=== PATIENT | female | born 1990 | race Caucasian/White ===

== ENCOUNTER 2016-11-02 23:14 | Emergency (ER) | payer OTHER ==
[2016-11-02 23:24] VITALS: BP 138/89
[2016-11-02] MEDS ORDERED: LIDOCAINE HCL 20 ML UDC MM ONE (23:56)
[2016-11-02] MEDS ORDERED: AMOXICILLIN TRIHYDRATE 250 MG CAPSULE PO ONE (23:56)
[2016-11-02] MEDS ORDERED: AMOXICILLIN TRIHYDRATE 250 MG CAPSULE ONE (23:58)
--- NOTE | 2016-11-03 | ERNOTE ---
ENT HPI Presenting Symptoms: dental pain Time Seen by Provider: 11/02/16 23:50 Source: patient Exam Limitations: no limitations - Immun/Allergies/Home Medications Immunizations: IMMUNIZATION HX Immunizations Up to Date No History of Influenza Vaccine No Hx Pneumococcal Vaccination No Allergies/Adverse Reactions: Allergies Allergy/AdvReac Type Severity Reaction Status Date / Time codeine Allergy Verified 11/02/16 23:25 haloperidol [From Haldol] Allergy Verified 11/02/16 23:25 haloperidol lactate Allergy Verified 11/02/16 23:25 [From Haldol] hydrocodone bitartrate Allergy Verified 11/02/16 23:25 [From Vicodin] metoclopramide HCl Allergy Verified 11/02/16 23:25 [From Reglan] morphine Allergy Verified 11/02/16 23:25 Home Medications: HOME MEDICATIONS Albuterol Sulfate [Proair Respiclick] 2 puff IH Q4H PRN 11/02/16 [Last Taken Unknown] Amoxicillin Trihydrate [Amoxil] 500 mg PO TID #30 cap 11/02/16 [Last Taken Unknown] Citalopram Hydrobromide [Celexa] 10 mg PO DAILY 11/02/16 [Last Taken Unknown] Lidocaine HCl [Lidocaine HCl Viscous 2%] 1 appl MM Q1H PRN #1 btl 11/02/16 [ Last Taken Unknown] - History of Present Illness Narrative: PAtient states that a molar broke off this afternoon and she has had pain ever since. She tried tylenol, states that she was told by a GI doctor that she shouldn't take NSAIDs, denies any recent medications or medical problems, later states that she has had recurrent bouts with pancreatitis, last one about a year ago. Date (Duration): 11/02/16 Time (Timing): 16:00 Review of Systems - Review of Systems Constitutional: Absent: recent illness, fever, chills ENT: Present: no symptoms reported. Absent: nose pain, nose congestion, nasal drainage Respiratory: Absent: shortness of breath Cardiology: Absent: chest pain Gastrointestinal/Abdominal: Absent: nausea, vomiting, abdominal pain Musculoskeletal: Absent: muscle pain Neurological: Absent: headache - Patient's Past Medical History Patient History - Medical: No pertinent hx Patient History - Cardiac/Respiratory: Asthma Patient History - Cancer: No Hx of Cancer Patient History - Surgical Procedures: Cholecystectomy, Tubal Ligation Patient History - Other: None LMP (females 10-50): 2 weeks LMP (Calendar): 10/22/16 - Social History Living Situations: home Psych History: Hx of Anxiety, Current tx/ever been on anti-depressants or anti- anxiety meds Smoking Status: Current every day smoker Alcohol Use: none Drug Use: none - Immunizations Immunizations Up to Date: No Hx Pneumococcal Vaccination: No History of Influenza Vaccine: No Physical Exam - Physical Exam General Appearance: Present: wd/wn, alert, mild distress - crying Ears, Nose, Throat: Present: normal ENT inspection, other - tender right upper molar, no gum swelling Neck: Absent: lymphadenopathy (R), lymphadenopathy (L) Respiratory: Present: no respiratory distress, normal breath sounds, no accessory muscle use, lungs clear Cardiovascular/Chest: Present: regular rate, rhythm, no murmur Neurological Exam: Present: alert, oriented, normal mood/affect Skin Exam: Present: normal color, warm/dry ED Progress - Vital Signs Patient's Vital Signs:: I have reviewed the patient's vital signs. Vital Signs: Vital Signs 11/02/16 23:18 Temperature 36.8 C Pulse Rate 103 H Respiratory 18 Rate Blood Pressure 138/89 O2 Sat by Pulse 98 Oximetry - Progress/Reassessment Chief Complaint: Dental Problem Departure Clinical Impression: Pain, dental - Departure Disposition: Home self-care Condition: Good Instructions: Dental Abscess, [id number] Additional Instructions: call the dentist tomorrow for follow up Prescriptions: Amoxicillin Trihydrate [Amoxil] 500 mg PO TID #30 cap Lidocaine HCl [Lidocaine HCl Viscous 2%] 1 appl MM Q1H PRN #1 btl PRN Reason: Pain
--- OUTSIDE RECORDS SUMMARY | 2016-11-03 00:04 | XMS REPORT | Continuity of Care Document ---
:1990 Author Organization [facility] [place] [address] Care Team Providers Name Role Phone Provider, None Per Patient Primary Care Provider Unavailable Source Comments This disclosure is being made pursuant to the Workana program and maynot contain all information available regarding this patient.[facility] Active Allergies and Adverse Reactions Allergen Noted Date Severity Reactions Comments Codeine 05/11/2015 Medium Nausea And Vomiting Morphine 05/11/2015 High Hives [place] 05/11/2015 Medium Nausea And Vomiting Reglan 05/11/2015 Medium Tardive Dyskinesia Current Medications Be aware that medications may not be up to date as of this document. Alwaysverify current medications with the patient. Prescription Sig. Disp. Refills Start Date End Date Status citalopram (CELEXA) 10 Take 10 mg by Active MG tablet mouth nightly. albuterol (PROVENTIL Inhale 2 puffs Active HFA;VENTOLIN HFA) 108 into the lungs (90 BASE) MCG/ACT daily. inhaler omeprazole (PRILOSEC) Take 20 mg by Active 10 MG capsule mouth every morning before breakfast. omeprazole (PRILOSEC) Take 1 capsule by 60 capsule 1 05/15/2015 Active 20 MG capsule mouth 2 (two) times daily. promethazine Take 1 tablet by 30 tablet 0 05/15/2015 Active (PHENERGAN) 25 MG mouth every 6 tablet (six) hours as needed for Nausea. Active Problems Problem Noted Date Idiopathic acute pancreatitis 05/12/2015 Abdominal pain, acute, epigastric 05/12/2015 Social History Tobacco Use Types Packs/Day Years Used Date Former Smoker Quit: 05/01/2015 Smokeless Tobacco: Never Used Alcohol Use Drinks/Week oz/Week Comments No Last Filed Vital Signs Vital Sign Reading Time Taken Blood Pressure 117/70 05/15/2015 9:10 AM CDT Pulse 63 05/15/2015 9:10 AM CDT Temperature 35.8 C (96.4 F) 05/15/2015 9:10 AM CDT Respiratory Rate 20 05/15/2015 9:10 AM CDT Height 1.702 m (5' 7") 05/11/2015 7:46 PM CDT Weight 104.9 kg (231 lb 4.2 oz) 05/15/2015 4:57 AM CDT Body Mass Index 36.21 05/15/2015 4:57 AM CDT Oxygen Saturation 96% 05/15/2015 9:10 AM CDT Plan of Care Health Maintenance Due Date Last Done Comments HPV Vaccine (9-26YO) (1 of 3 - Female/Unknown 3 Dose 2001 Series) Tetanus/Pertussis (1 - Tdap) 2009 Pap Smear 2011 Retired-INFLUENZA VACCINE 04/24/2016 Results from Last 3 Months Not on file
--- OUTSIDE RECORDS SUMMARY | 2016-11-03 00:04 | XMS REPORT | Continuity of Care Document ---
:1990 Author Organization [facility] ([facility]) [place] [address] Phone [phone] Care Team Providers Name Role Phone Alta Miller Primary Care Provider [phone] Source Comments This disclosure is being made pursuant to the Care Everywhere program, applicable federal and state laws, and may not contain all informaitonavailable regarding this patient.[facility] ([facility]) Active Allergies and Adverse Reactions Allergen Noted Date Severity Reactions Comments Codeine 09/21/2016 Angioedema Hydrocodone-Acetaminophen 09/21/2016 Nausea & Vomiting Morphine 09/21/2016 Urticaria (Hives) Current Medications Prescription Sig. Disp. Refills Start Date End Date Status dicyclomine 20 mg Take 1 tablet 60 tablet 0 09/21/2016 10/21/2016 tablet (20 mg total) by mouth 2 times daily as needed. Active Problems Not on file Most Recent Encounters Date Type Specialty Providers Description 10/15/2016 Telephone Med GI/Hepatology Gilma Sellers RN Chief Comp: Appointment Request 09/22/2016 Telephone Med GI/Hepatology Cheli Tyson RN Chief Comp: Other 09/21/2016 Hospital Encounter Emergency Medicine Vasyl Salinas Dx: Abdominal painJr. MD epigastric (Primary Dx) Social History Tobacco Use Types Packs/Day Years Used Date Current Every Day Smoker Alcohol Use Drinks/Week oz/Week Comments No Last Filed Vital Signs Vital Sign Reading Time Taken Blood Pressure 130/79 09/21/2016 8:21 AM MEDICARE COMPLIANCE AUDITOR Pulse 90 09/21/2016 8:21 AM MEDICARE COMPLIANCE AUDITOR Temperature 36.7 C (98.1 F) 09/21/2016 8:21 AM MEDICARE COMPLIANCE AUDITOR Respiratory Rate 16 09/21/2016 8:21 AM MEDICARE COMPLIANCE AUDITOR Height - - Weight - - Body Mass Index - - Oxygen Saturation 100% 09/21/2016 8:21 AM MEDICARE COMPLIANCE AUDITOR Plan of Care Date Type Specialty Providers Description 03/19/2017 Wait List Med GI/Hepatology 03/19/2017 Appointment Med GI/Hepatology Amber Shoemaker MD Chief Comp: Patient Liang [place] [address] Visit [phone] (Fax) Health Maintenance Due Date Last Done Comments Hepatitis B Vaccine (1 of 3 - Primary Series) 1990 HPV Vaccine (1 of 3 - Female/Unknown 3 Dose Series) 2001 Tdap Vaccine 2001 Cervical Cancer Screening 01/24/2008 Lipid Disorder Screening 01/24/2008 MMR Vaccine 01/24/2008 Td Vaccine 01/24/2008 Varicella Vaccine (1 of 2 - Adult - No Evidence of 01/24/2008 Immunity) Pneumococcal Vaccine (1 of 1 - PPSV23) 2009 Influenza Vaccine: Seasonal (#1) 03/24/2016 Results from Last 3 Months US RIGHT UPPER QUADRANT (RUQ) (09/21/2016 9:43 AM) Impressions Impression: 1. Gallbladder sludge without evidence of cholecystitis. 2. No cholelithiasis or choledocholithiasis. Bile ducts are not dilated. 3. Visualized portion of the pancreas is unremarkable. This final report is in agreement with the critical and emergent preliminary findings reported by the presidential support specialist waiter/waitress second class. --- Final --- Narrative [facility] Department of Radiology Ultrasound [place] [address] [place] [address] ULTRASOUND REPORT NAME:LEO VELEZ Date of Service: 09/21/2016 MRN NO.: [id number] Date: 09/21/2016 Patient's : 1990Resident/Tech: [id number] Sarah Nas Patient's Age: 26 yearsReferring MD:RENE MILLS Indication: Epigastric pain, post-prandial. please evaluate for biliary disease. Technique: Right upper quadrant grayscale ultrasound. Comparison: None. Findings: Liver:No liver lesions. +---------+ + +-------+ + :Size (cm):Echogenicity:Echotexture:Shape:Vascularity: +---------+ + +-------+ + :16.6 :Normal. :Normal.:Normal.:Normal.: +---------+ + +-------+ + Gallbladder: + + + :Gallbladder contents :Mobile sludge: + + + :Gallbladder wall :Normal. 1.2 mm.: + + + :Pericholecystic fluid:Absent.: + + + :Springer's sign:Negative : + + + Biliary Tree: + + + + :Intrahepatic biliary ducts:Right liver:Left liver: + + + + ::Normal :Normal : + + + + + + + + -+ :Extrahepatic duct :Diameter (mm):Biliary dilation:Contents/Characteristics: :(common duct) : :: : + + + + -+ :Proximal:3.1:Normal :None/normal : + + + + -+ :Mid :2.0:Normal:None/normal : + + + + -+ :Distal:2.2:Normal :None/normal : + + + + -+ Spleen: The spleen is normal in size and appearance. Spleen measures 11.5 x 3.4 x 11.3 cm. Pancreas: The pancreatic tail is not well visualized. Procedure Note Abiodun, Incoming Imaging Results - Loreta Sep 21, 2016 12:16 PM MEDICARE COMPLIANCE AUDITOR [facility] Department of Radiology Ultrasound Division [address] [place] [address] ULTRASOUND REPORT NAME: LEO VELEZ Date of Service: 09/21/2016 MRN NO.: [id number] Review Date: 09/21/2016 Patient's : 1990 Resident/Tech: [id number] Sarah Lovell Patient's Age: 26 years Referring MD: RENE MILLS Indication: Epigastric pain, post-prandial. please evaluate for biliary disease. Technique: Right upper quadrant grayscale ultrasound. Comparison: None. Findings: Liver:No liver lesions. +---------+ + +-------+ + :Size (cm):Echogenicity:Echotexture:Shape :Vascularity: +---------+ + +-------+ + :16.6 :Normal. :Normal. :Normal.:Normal. : +---------+ + +-------+ + Gallbladder: + + + :Gallbladder contents :Mobile sludge : + + + :Gallbladder wall :Normal. 1.2 mm.: + + + :Pericholecystic fluid:Absent. : + + + :Springer's sign :Negative : + + + Biliary Tree: + + + + :Intrahepatic biliary ducts:Right liver:Left liver: + + + + : :Normal :Normal : + + + + + + + + -+ :Extrahepatic duct :Diameter (mm):Biliary dilation:Contents/Characteristics: :(common duct) : : : : + + + + -+ :Proximal :3.1 :Normal :None/normal : + + + + -+ :Mid :2.0 :Normal :None/normal : + + + + -+ :Distal :2.2 :Normal :None/normal : + + + + -+ Spleen: The spleen is normal in size and appearance. Spleen measures 11.5 x 3.4 x11.3 cm. Pancreas: The pancreatic tail is not well visualized. IMPRESSION Impression: 1. Gallbladder sludge without evidence of cholecystitis. 2. No cholelithiasis or choledocholithiasis. Bile ducts are not dilated. 3. Visualized portion of the pancreas is unremarkable. This final report is in agreement with the critical and emergentpreliminary findings reported by the presidential support specialist waiter/waitress second class. --- Final --- MICROSCOPIC URINALYSIS (09/21/2016 9:03 AM) Component Value Range White Blood Cells, Urine <1 0-5 /HPF Red Blood Cells, Urine <1 0-2 /HPF Squamous Epithelial Cells, Urine 39(H) <=10 /LPF Mucous-Urine Rare None, Rare Specimen Urine URINALYSIS WITH REFLEX CULTURE (09/21/2016 9:03 AM) Component Value Range Color, Urine Yellow Straw, Pale Yellow, Yellow, Clear, None Clarity, Urine Clear Clear pH, Urine 5.0 <9.0 Spec [place], Urine 1.015 1.000-1.030 Glucose, Urine Negative Negative Blood, Urine Negative Negative Ketones, Urine Negative Negative Protein, Urine Negative Negative Urobilinogen, Urine Normal Normal Bilirubin, Urine Negative Negative Leukocyte Esterase, Urine Trace(A) Negative Nitrite, Urine Negative Negative Specimen Urine URINALYSIS WITH REFLEXED CULTURE AND MICROSCOPIC EXAM (09/21/2016 9:03 AM) Specimen Culture - Urine, Midstream clean catch Narrative The following orders were created for panel order URINALYSIS WITH REFLEXED CULTURE AND MICROSCOPIC EXAM. Procedure Abnormality Status --------- ------ URINALYSIS WITH REFLEX C...[[id number]]AbnormalFinal result MICROSCOPIC URINALYSIS[[id number]] Abnormal Final result URINE CULTURE, REFLEXED[[id number]]Abnormal Final result Please view results for these tests on the individual orders. URINE CULTURE, REFLEXED (09/21/2016 9:03 AM) Component Value Range Quantitative Culture <10,000 CFU/mL Streptococcus agalactiae(A) Quantitative Culture Multiple Organisms present suggesting improperly collected specimen(A) Specimen Culture - Urine, Midstream clean catch Narrative Identification performed by MALDI-TOF mass spectrometry (MS).The performance characteristics of MALDI-TOF MS were determined by the [facility].It has not been cleared orApproved by the FDA. The FDA has determined that such clearance or approval is not necessary.This test is for clinical purposes. It should not be regarded as investigational or for research.The laboratory is certified under the Clinical Laboratory Improvement Amendments of 1988 (CLIA) as qualified to perform high complexity clinical laboratory testing. DIFFERENTIAL (09/21/2016 9:01 AM) Component Value Range % Neutrophils-Auto Diff 66.4 % Neutrophils-Auto Diff 4320 2899-3218 /MM3 % Lymphocytes-Auto Diff 23.1 % Lymphocytes-Auto Diff 3490 163-9514 /MM3 % Monocytes-Auto Diff 7.5 % Monocytes-Auto Diff 490 130-860 /MM3 % Eosinophils-Auto Diff 2.2 % Eosinophils-Auto Diff 140 40-390 /MM3 % Basophils 0.6 % Basophils-Auto Diff 40 10-136 /MM3 % Immature Granulocytes-Auto Diff 0.2 % Immature Granulocytes-Auto Diff 10 /MM3 Specimen Whole Blood CBC (COMPLETE BLOOD COUNT) (09/21/2016 9:01 AM) Component Value Range WBC Count 6.5 3.7-10.5 K/MM3 RBC Count 4.69 4.00-5.20 M/MM3 Hemoglobin 14.1 11.9-15.5 g/dL Hematocrit 42 35-47 % MCV (Mean Corpuscular Volume) 89 82-99 FL MCH (Mean Corpuscular Hemoglobin) 30 25-35 PG MCHC (Mean Corpuscular Hemoglobin Concentration) 34 32-36 % Platelet Count 318 150-400 K/MM3 MPV (Mean Platelet Volume) 10.5 9.4-12.3 FL RBC Dist Width-STD 39.8 36.4-46.3 FL RBC Distrib Width 12.4 9.0-14.5 % Nucleated RBC 0 /100 WBC Specimen Whole Blood HCG - , SERUM, QUANTITATIVE (09/21/2016 9:01 AM) Component Value Range Screen, Quantitative, Blood <2Comment: mIU/mL This assay recognizes the intact HCG "holo-hormone" produced in but may not recognize other forms of HCG (e.g., "nicked HCG") produced in other conditions such as tumors of the germs cells, ovaries, bladder, pancreas, stomach, lungs, and liver. QUANTITATIVE HCG Weeks of gestation Expected range mIU/mL 3 weeks5 - 72 4 weeks 10 - 708 5 - 8, 245 6 zwytq143 - 32, 177 7 weeks 4,059 - 153, 767 8 weeks31,366 - 149, 094 9 weeks59,109 - 135, 901 10 weeks 44,186 - 170, 409 12 weeks 27,107 - 201, 165 14 weeks 24,302 - 93,646 15 weeks 12,540 - 69,747 16 weeks 8,904 - 55, 332 17 weeks 8,240 - 51, 793 18 weeks 9,649 - 55, 271 Non- females:< 3 mIU/mL Males: < 2 mIU/mL Healthy non- alexandre-menopausal and post-menopausal females may have HCG values up to 8 mIU/mL.Heterophile antibodies present in the serum of some patients may cause a false positive result in this assay. Specimen Blood PT/INR (PROTHROMBIN TIME/INR) VENOUS (09/21/2016 9:01 AM) Component Value Range PT (Prothrombin Time) 11 9-12 secs INR 1.0 <4.0 Specimen Blood LIPASE (09/21/2016 9:01 AM) Component Value Range Lipase 36 13-60 U/L Specimen Blood COMPREHENSIVE METABOLIC PANEL (CMP) (09/21/2016 9:01 AM) Component Value Range Sodium 137 135-145 mEq/L Potassium 3.8 3.5-5.0 mEq/L Chloride 100 95-107 mEq/L CO2 25 22-29 mEq/L Anion Gap 12 8-18 mEq/L BUN 12 10-20 mg/dL Creatinine 0.7Comment: 0.5-1.0 mg/dL Creatinine switched to enzymatic method on 12/31/2010.GFR equation switched to IDMS-traceable MDRD equation on 12/31/2010. Calculated GFR values are not valid in clinical settings where serum creatinine is changing. Glucose 93Comment: 65-99 mg/dL The Expert Committee on the Diagnosis and Classification of Diabetes has defined impaired fasting glucose as greater than or equal to 100 mg/dL but less than 126 mg/dL.(Diabetes Care 28 (Suppl 1)S41,2005) Calcium 9.1 8.5-10.5 mg/dL Total Protein 7.4 6.0-8.0 g/dL Albumin 4.4 3.4-4.8 g/dL AST 20Comment: 0-32 U/L Adult reference ranges updated on 07/19/13 at 830am ALP 80 35-104 U/L Bilirubin Total 0.9 <=1.2 mg/dL ALT 11Comment: 0-33 U/L The upper limit of normal for alanine aminotransferase (ALT) reference ranges for adults is controversial with some authorities recommending limit as low as 30 U/L for males and 19 U/L for females. Th ere is increased incidence of subclinical liver disease (e.g., early steatohepatitis) in patients with ALT values in the range of 31-41 U/L for males and 20-33 U/L for females. ALT values should alway s be interpreted in conjunction with clinical history, physical examination findings, and, if applicable, data from other diagnostic tests. Calculated GFR >90 >60 mL/min/1.73 m2 Specimen Blood CBC WITH DIFFERENTIAL (09/21/2016 9:01 AM) Specimen Whole Blood Narrative The following orders were created for panel order CBC WITH DIFFERENTIAL. Procedure Abnormality Status --------- ------ CBC (COMPLETE BLOOD COUNT)[[id number]] Final result DIFFERENTIAL[[id number]] Final result Please view results for these tests on the individual orders.
--- OUTSIDE RECORDS SUMMARY | 2016-11-03 00:04 | XMS REPORT | Summary of Care ---
:[address] [facility] Address [address] [place] [id number]- Care Team Providers Name Role Phone TamyjulietaAlta Primary Care Physician Encounter Date(s): 09/23/16 - 09/23/[address] [address]- [facility] Discharge Disposition: 01 Discharged to Home or Self Care Attending Physician: Kevan Vincent DO Admitting Physician: Kevan Vincent DO Vital Signs No data available for this section Problem List Condition Effective Dates Status Health Status Informant Acute gastritis(Confirmed) Active Adolescent (Confirmed) Active Asthma(Confirmed) Active Group B streptococcus(Confirmed) Active Maternal tobacco use(Confirmed) Active Pancreatitis(Confirmed) Active (Confirmed) < 2010 Resolved (Confirmed) 2011 Resolved (Confirmed) 05/25/12 - 02/22/13 Resolved (Confirmed) 07/07/14 - 03/29/15 Resolved (Confirmed) 07/21/15 - 04/26/16 Resolved Allergies, Adverse Reactions, Alerts Substance Reaction Severity Status codeine Vomit Mild Active Haldol Rigors Moderate Active morphine Rash Moderate Active Reglan muscle spasms Moderate Active Vicodin Rash Moderate Active Medications albuterol CFC free 90 mcg/inh inhalation aerosol puff(s), Inhale, QID, 0 Refill(s), Start Date: 08/31/15 13:37:00 COAGULATING BATH OPERATOR Start Date: 08/31/15 Stop Date: 10/26/15 Status: CompletedCarafate 1 g oral tablet 1 tab(s), Oral, QID, # 120 tab(s), 0 Refill(s), Start Date: 07/25/16 13:18:00 COAGULATING BATH OPERATOR, Pharmacy: [id number] Start Date: 07/25/16 Status: OrderedCarafate 1 g oral tablet 1 tab(s), Oral, QIDACHS, # 56 tab(s), 0 Refill(s), Start Date: 06/06/16 12:51: 00 CDT Start Date: 06/06/16 Stop Date: 06/12/16 Status: DiscontinuedCarafate 1 g oral tablet 1 tab(s), Oral, QIDACHS, X 14 days, # 56 tab(s), 0 Refill(s), Start Date: 4:34:00 COAGULATING BATH OPERATOR Start Date: 06/26/15 Stop Date: 07/10/15 Status: CompletedCarafate 1 g oral tablet 1 tab(s), Oral, QID, # 28 tab(s), 0 Refill(s), Start Date: 10/26/15 13:03:00 COAGULATING BATH OPERATOR Start Date: 10/26/15 Stop Date: 11/14/15 Status: DiscontinuedCeleXA 10 mg oral tablet 2 tab(s), Oral, Daily, 0 Refill(s), Start Date: 08/31/15 13:36:00 COAGULATING BATH OPERATOR Start Date: 08/31/15 Stop Date: 07/14/16 Status: DiscontinuedCeleXA 20 mg oral tablet 1 tab(s), Oral, Daily, # 30 tab(s), 2 Refill(s), Start Date: 07/14/16 12:54:00 COAGULATING BATH OPERATOR, Pharmacy: [id number] Start Date: 07/14/16 Status: Orderedcetirizine 5 mg oral tablet 1 tab(s), Oral, Daily, # 10 tab(s), 0 Refill(s), Start Date: 09/01/16 15:51:00 COAGULATING BATH OPERATOR, Pharmacy: [facility] Start Date: 09/01/16 Stop Date: 09/12/16 Status: CompletedClassic oral tablet 1 tab(s), Oral, Daily, # 30 tab(s), 11 Refill(s), Start Date: 08/31/15 14:03:00 COAGULATING BATH OPERATOR, Pharmacy: [id number] Start Date: 08/31/15 Stop Date: 08/01/16 Status: Completeddicyclomine 20 mg oral tablet 1 tab(s), Oral, QID, PRN abdominal pain, # 40 tab(s), 0 Refill(s), Start Date: 08/06/16 0:16:00 COAGULATING BATH OPERATOR Start Date: 08/06/16 Stop Date: 08/19/16 Status: CompletedDilaudid 2 mg oral tablet 1 tab(s), Oral, q8hr interval, PRN for pain, # 30 tab(s), 0 Refill(s), Start Date: 08/28/16 18:51:00 COAGULATING BATH OPERATOR Start Date: 08/28/16 Stop Date: 09/09/16 Status: Completedferrous sulfate 325 mg (65 mg elemental iron) oral tablet 1 tab(s), Oral, Daily, # 90 tab(s), 2 Refill(s), Start Date: 01/16/16 13:33:00 CDT, Pharmacy: [facility] Start Date: 01/16/16 Stop Date: 04/28/16 Status: Discontinuedferrous sulfate 325 mg (65 mg elemental iron) oral tablet 1 tab(s), Oral, Daily, # 90 tab(s), 0 Refill(s), Start Date: 01/16/16 13:32:00 CDT Start Date: 01/16/16 Stop Date: 01/16/16 Status: DiscontinuedFlagyl 500 mg oral tablet 1 tab(s), Oral, q12hr, # 14 tab(s), 0 Refill(s), Start Date: 02/23/16 23:20:00 CDT, Pharmacy: [facility] Start Date: 02/23/16 Stop Date: 03/12/16 Status: Discontinuedibuprofen 600 mg oral tablet 1 tab(s), Oral, q6hr, PRN pain mild 1-3, # 30 tab(s), 0 Refill(s), Start Date: 04/28/16 9:49:00 CDT, Pharmacy: [id number] Start Date: 04/28/16 Stop Date: 08/01/16 Status: CompletedMacrobid 100 mg oral capsule 1 cap(s), Oral, BID, # 14 cap(s), 0 Refill(s), Start Date: 02/04/16 20:15:00 CDT , Pharmacy: [facility] Start Date: 02/04/16 Stop Date: 02/06/16 Status: DiscontinuedMacrobid 100 mg oral capsule 1 cap(s), Oral, BID, # 14 cap(s), 0 Refill(s), Start Date: 11/26/15 15:08:00 CDT , Pharmacy: [facility] Start Date: 11/26/15 Stop Date: 12/20/15 Status: Completedmagnesium citrate 1.745 g/30 mL oral liquid 150 mL, Oral, ONETIME, # 300 mL, 0 Refill(s), Start Date: 08/01/16 18:28:00 COAGULATING BATH OPERATOR Start Date: 08/01/16 Stop Date: 08/01/16 Status: CompletedMiraLax oral powder for reconstitution 17 gm=, Oral, Daily, dissolve in water before taking, X 31 days, # 527 gm, 0 Refill(s), Start Date: 08/01/16 18:28:00 COAGULATING BATH OPERATOR Special Instructions: dissolve in water before taking Start Date: 08/01/16 Stop Date: 08/04/16 Status: Completedomeprazole 40 mg oral delayed release capsule 1 cap(s), Oral, Daily, # 30 cap(s), 0 Refill(s), Start Date: 07/25/16 13:18:00 COAGULATING BATH OPERATOR, Pharmacy: [facility] Start Date: 07/25/16 Stop Date: 09/12/16 Status: Completedomeprazole 40 mg oral delayed release capsule 1 cap(s), Oral, Daily, # 30 cap(s), 0 Refill(s), Start Date: 09/10/16 10:56:00 COAGULATING BATH OPERATOR, Pharmacy: [facility] Start Date: 09/10/16 Status: Orderedondansetron 4 mg oral tablet, disintegrating 1 tab(s), Oral, TID, PRN nausea/vomiting, Start Date: 06/06/16 10:52:00 CDT Start Date: 06/06/16 Stop Date: 08/01/16 Status: CompletedoxyCODONE-acetaminophen 5 mg-325 mg oral tablet 1 tab(s), Oral, TID, PRN pain severe 8-10, X 7 days, # 21 tab(s), 0 Refill(s), Start Date: 06/30/16 9:59:27 COAGULATING BATH OPERATOR, Pharmacy: [facility] Start Date: 06/30/16 Stop Date: 07/07/16 Status: CompletedoxyCODONE-acetaminophen 5 mg-325 mg oral tablet 1 tab(s), Oral, TID, PRN pain severe 8-10, X 7 days, # 21 tab(s), 0 Refill(s), Start Date: 06/23/16 15:23:20 CDT, Pharmacy: [facility] Start Date: 06/23/16 Stop Date: 06/30/16 Status: CompletedoxyCODONE-acetaminophen 5 mg-325 mg oral tablet 2 tab(s), Oral, TID, PRN for pain, Only for severe pain 8-10 not to exceed 4000 mg acetaminophen per day, X 14 days, # 84 tab(s), 0 Refill(s), Start Date: 07/18/16 11:01:00 COAGULATING BATH OPERATOR, other reason (Rx) Special Instructions: Only for severe pain 8-10 not to exceed 4000 mg acetaminophen per day Start Date: 07/18/16 Stop Date: 07/18/16 Status: CompletedoxyCODONE-acetaminophen 5 mg-325 mg oral tablet 1 tab(s), Oral, q6hr interval, PRN pain severe 8-10, 0 Refill(s), Start Date: 10:53:00 CDT Start Date: 06/06/16 Stop Date: 06/12/16 Status: DiscontinuedoxyCODONE-acetaminophen 5 mg-325 mg oral tablet 1 tab(s), Oral, q4hr, PRN for pain, # 10 tab(s), 0 Refill(s), Start Date: 12:59:00 CDT, Pharmacy: [facility] Start Date: 04/11/16 Stop Date: 04/26/16 Status: CompletedoxyCODONE-acetaminophen 5 mg-325 mg oral tablet 1 tab(s), Oral, TID, PRN for pain, Only for severe pain 8-10, X 14 days, # 42 tab(s), 0 Refill(s), Start Date: 07/10/16 9:02:23 COAGULATING BATH OPERATOR, Pharmacy: [facility] Special Instructions: Only for severe pain 8-10 Start Date: 07/10/16 Stop Date: 07/18/16 Status: CompletedoxyCODONE-acetaminophen 5 mg-325 mg oral tablet 1 tab(s), Oral, q6hr interval, PRN pain severe 8-10, X 10 days, # 40 tab(s), 0 Refill(s), Start Date: 06/12/16 14:19:00 CDT, Pharmacy: [facility] Start Date: 06/12/16 Stop Date: 06/22/16 Status: CompletedoxyCODONE-acetaminophen 5 mg-325 mg oral tablet 1 tab(s), Oral, Daily, PRN for pain, Only for severe pain 8-10, X 7 days, # 7 tab(s), 0 Refill(s), Start Date: 07/07/16 8:39:00 COAGULATING BATH OPERATOR, Pharmacy: [facility] Special Instructions: Only for severe pain 8-10 Start Date: 07/07/16 Stop Date: 07/10/16 Status: CompletedoxyCODONE-acetaminophen 5 mg-325 mg oral tablet 2 tab(s), Oral, TID, PRN for pain, Only for severe pain 8-10 not to exceed 4000 mg acetaminophen per day, X 7 days, # 42 tab(s), 0 Refill(s), Start Date: 07/18/16 11:44:08 COAGULATING BATH OPERATOR, Pharmacy: [facility] Special Instructions: Only for severe pain 8-10 not to exceed 4000 mg acetaminophen per day Start Date: 07/18/16 Stop Date: 07/25/16 Status: CompletedoxyCODONE-acetaminophen 5mg-325mg oral tablet 2 tab(s), Oral, TID, PRN for pain, Only for severe pain 8-10 not to exceed 4000 mg acetaminophen per day, X 7 days, # 42 tab(s), 0 Refill(s), Start Date: 07/25/16 12:04:23 COAGULATING BATH OPERATOR, Pharmacy: [facility] Special Instructions: Only for severe pain 8-10 not to exceed 4000 mg acetaminophen per day Start Date: 07/25/16 Stop Date: 08/01/16 Status: Completedpantoprazole 40 mg oral delayed release tablet 1 tab(s), Oral, Daily, X 14 days, # 14 tab(s), 0 Refill(s), Start Date: 4:33:00 COAGULATING BATH OPERATOR Start Date: 06/26/15 Stop Date: 07/10/15 Status: Completedpantoprazole 40 mg oral delayed release tablet 1 tab(s), Oral, Daily, # 30 tab(s), 0 Refill(s), Start Date: 06/06/16 12:51:00 CDT Start Date: 06/06/16 Stop Date: 06/12/16 Status: DiscontinuedPercocet 5/325 oral tablet 1 tab(s), Oral, TID, PRN for pain, X 7 days, # 21 tab(s), 0 Refill(s), Start Date: 09/16/16 8:47:54 COAGULATING BATH OPERATOR, Pharmacy: [place] [id number] Start Date: 09/16/16 Stop Date: 09/22/16 Status: CompletedPercocet 5/325 oral tablet 1 tab(s), Oral, q6hr, PRN for pain, # 30 tab(s), 0 Refill(s), Start Date: 9:49:26 CDT, Pharmacy: [facility] Start Date: 04/28/16 Stop Date: 05/28/16 Status: CompletedPercocet 5/325 oral tablet 1 tab(s), Oral, q6hr, PRN for pain, # 10 tab(s), 0 Refill(s), Start Date: 8:35:41 CDT, Pharmacy: [facility] Start Date: 04/18/16 Stop Date: 04/28/16 Status: DiscontinuedPercocet 5/325 oral tablet 1 tab(s), Oral, q4hr, PRN for pain, X 5 days, # 20 tab(s), 0 Refill(s), Start Date: 06/01/16 0:48:00 CDT Start Date: 06/01/16 Stop Date: 06/06/16 Status: CompletedPercocet 5/325 oral tablet 2 tab(s), Oral, q6hr, PRN for pain, X 3 days, # 15 tab(s), 0 Refill(s), Start Date: 06/26/15 4:33:00 COAGULATING BATH OPERATOR Start Date: 06/26/15 Stop Date: 06/29/15 Status: CompletedPercocet 5/325 oral tablet 1 tab(s), Oral, q6hr interval, PRN for pain, X 7 days, # 28 tab(s), 0 Refill(s) , Start Date: 09/09/16 11:45:52 COAGULATING BATH OPERATOR, Pharmacy: [facility] Start Date: 09/09/16 Stop Date: 09/16/16 Status: CompletedPercocet 5/325 oral tablet 1 or 2 tabs, Oral, q4hr, PRN pain moderate 4-7, Do not work or drive with this medication, # 12 tab(s), 0 Refill(s), Start Date: 08/18/15 0:20:00 COAGULATING BATH OPERATOR Special Instructions: Do not work or drive with this medication Start Date: 08/18/15 Stop Date: 08/21/15 Status: CompletedPercocet 5/325 oral tablet 1 tab(s), Oral, q6hr, PRN for pain, # 10 tab(s), 0 Refill(s), Start Date: 22:53:00 CDT, Pharmacy: [facility] Start Date: 04/17/16 Stop Date: 04/18/16 Status: DiscontinuedPercocet 5/325 oral tablet 1 tab(s), Oral, TID, PRN for pain, # 30 tab(s), 0 Refill(s), Start Date: 15:49:00 COAGULATING BATH OPERATOR Start Date: 09/01/16 Stop Date: 09/09/16 Status: CompletedPercocet 5/325 oral tablet 1 tab(s), Oral, BID, PRN for pain, # 14 tab(s), 0 Refill(s), Start Date: 9:06:36 COAGULATING BATH OPERATOR, Pharmacy: [facility] Start Date: 09/22/16 Stop Date: 09/29/16 Status: OrderedPhenergan 25 mg oral tablet 1 tab(s), Oral, q4hr, PRN for nausea/vomiting, X 5 days, # 30 tab(s), 0 Refill(s ), Start Date: 08/24/16 12:32:00 COAGULATING BATH OPERATOR Start Date: 08/24/16 Stop Date: 08/29/16 Status: CompletedpredniSONE 20 mg oral tablet See Instructions, 2 tab(s) Oral Daily for 5 days then 1 tab daily for 5 days then 0.5 tab daily for 5 days, # 20 tab(s), 0 Refill(s), Start Date: 12/20/15 14 :03:00 CDT, Pharmacy: [facility] Special Instructions: 2 tab(s) Oral Daily for 5 days then 1 tab daily for 5 days then 0.5 tab daily for 5 days Start Date: 12/20/15 Stop Date: 01/28/16 Status: CompletedProAir HFA 90 mcg/inh inhalation aerosol 2 puff(s), Inhale, QID, PRN for wheezing, # 1 boxes, 2 Refill(s), Start Date: 10:48:39 CDT, Pharmacy: [facility] Start Date: 01/16/16 Status: OrderedProAir HFA 90 mcg/inh inhalation aerosol 2 puff(s), Inhale, QID, PRN for wheezing, # 1 boxes, 2 Refill(s), Start Date: 13:59:00 COAGULATING BATH OPERATOR, Pharmacy: [facility] Start Date: 10/17/15 Stop Date: 01/16/16 Status: Discontinuedpromethazine 25 mg oral tablet 1 tab(s), Oral, q6hr interval, PRN as needed for nausea/vomiting, X 3 days, # 12 tab(s), 0 Refill(s), Start Date: 06/06/16 12:52:00 CDT Start Date: 06/06/16 Stop Date: 06/09/16 Status: Completedpromethazine 25 mg oral tablet 1 tab(s), Oral, q6hr, Dispense, # 3 tab(s), 0 Refill(s), Start Date: 08/02/16 21 :58:00 COAGULATING BATH OPERATOR Special Instructions: Dispense Start Date: 08/02/16 Stop Date: 08/19/16 Status: Completedpromethazine 25 mg oral tablet 1 tab(s), Oral, q6hr, # 12 tab(s), 0 Refill(s), Start Date: 08/02/16 21:56:00 COAGULATING BATH OPERATOR Start Date: 08/02/16 Stop Date: 08/19/16 Status: Completedpromethazine 25 mg oral tablet 1 tab(s), Oral, q4hr, PRN for nausea/vomiting, # 60 tab(s), 0 Refill(s), Start Date: 08/31/15 14:03:00 COAGULATING BATH OPERATOR, Pharmacy: [facility] Start Date: 08/31/15 Stop Date: 11/14/15 Status: DiscontinuedSingulair 10 mg oral tablet 1 tab(s), Oral, qPM, # 30 tab(s), 5 Refill(s), Start Date: 12/20/15 14:03:00 CDT , Pharmacy: [place] [id number] Start Date: 12/20/15 Stop Date: 04/26/16 Status: CompletedSymbicort 80 mcg-4.5 mcg/inh inhalation aerosol 2 puff(s), Inhale, BID, # 7 gm, 11 Refill(s), Start Date: 11/14/15 13:45:00 CDT , Pharmacy: [place] [id number] Start Date: 11/14/15 Stop Date: 04/26/16 Status: CompletedtraMADol 50 mg oral tablet 1 tab(s), Oral, q4hr interval, PRN as needed for pain, X 3 days, # 18 tab(s), 0 Refill(s), Start Date: 08/24/16 12:32:00 COAGULATING BATH OPERATOR Start Date: 08/24/16 Stop Date: 08/27/16 Status: CompletedtraMADol 50 mg oral tablet 1 tab(s), Oral, q4hr, PRN for pain, # 10 tab(s), 0 Refill(s), Start Date: 21:27:00 COAGULATING BATH OPERATOR Start Date: 08/09/16 Stop Date: 08/19/16 Status: CompletedtraMADol 50 mg oral tablet 1 tab(s), Oral, q4hr, PRN as needed for pain, Dispense, # 4 tab(s), 0 Refill(s) , Start Date: 08/02/16 21:58:00 COAGULATING BATH OPERATOR Special Instructions: Dispense Start Date: 08/02/16 Stop Date: 08/19/16 Status: CompletedtraMADol 50 mg oral tablet 1 tab(s), Oral, q4hr interval, PRN as needed for pain, # 18 tab(s), 0 Refill(s) , Start Date: 08/02/16 21:56:00 COAGULATING BATH OPERATOR Start Date: 08/02/16 Stop Date: 08/19/16 Status: CompletedUltram 50 mg oral tablet 1 or2 tab(s), Oral, q6hr interval, PRN for pain, Not work or drive with this medication, # 20 tab(s), 0 Refill(s), Start Date: 08/19/16 18:37:00 COAGULATING BATH OPERATOR Special Instructions: Not work or drive with this medication Start Date: 08/19/16 Stop Date: 09/01/16 Status: CompletedZofran 4 mg oral tablet 1 tab(s), Oral, TID, PRN nausea/vomiting, # 10 tab(s), 0 Refill(s), Start Date: 08/09/16 21:28:00 COAGULATING BATH OPERATOR Start Date: 08/09/16 Stop Date: 08/19/16 Status: CompletedZofran ODT 4 mg oral tablet, disintegrating 1 tab(s), Oral, q4hr, PRN nausea/vomiting, X 3 days, # 18 tab(s), 0 Refill(s), Start Date: 06/01/16 0:48:00 CDT Start Date: 06/01/16 Stop Date: 06/04/16 Status: CompletedZofran ODT 4 mg oral tablet, disintegrating 1 tab(s), Oral, q6hr, PRN nausea, X 3 days, # 10 tab(s), 0 Refill(s), Start Date : 06/26/15 4:33:00 COAGULATING BATH OPERATOR Start Date: 06/26/15 Stop Date: 06/29/15 Status: CompletedZofran ODT 4 mg oral tablet, disintegrating 1 tab(s), Oral, TID, # 9 tab(s), 0 Refill(s), Start Date: 09/09/16 11:45:51 COAGULATING BATH OPERATOR , Pharmacy: [id number] Start Date: 09/09/16 Stop Date: 09/12/16 Status: CompletedZofran ODT 4 mg oral tablet, disintegrating 1 tab(s), Oral, As Indicated, PRN nausea/vomiting, # 10 tab(s), 0 Refill(s), Start Date: 08/18/15 0:19:00 COAGULATING BATH OPERATOR Start Date: 08/18/15 Stop Date: 08/31/15 Status: DiscontinuedZofran ODT 4 mg oral tablet, disintegrating 1 tab(s), Oral, QID, X 3 days, # 30 tab(s), 0 Refill(s), Start Date: 08/28/16 18 :51:00 COAGULATING BATH OPERATOR Start Date: 08/28/16 Stop Date: 09/09/16 Status: CompletedZofran ODT 4 mg oral tablet, disintegrating 1 tab(s), Oral, q4hr, PRN nausea/vomiting, X 5 days, # 30 tab(s), 0 Refill(s), Start Date: 08/18/15 14:15:00 COAGULATING BATH OPERATOR Start Date: 08/18/15 Stop Date: 08/23/15 Status: CompletedZofran ODT 4 mg oral tablet, disintegrating 1 tab(s), Oral, TID, PRN nausea/vomiting, # 10 tab(s), 0 Refill(s), Start Date: 09/12/16 12:24:00 COAGULATING BATH OPERATOR Start Date: 09/12/16 Status: OrderedZyrTEC 10 mg oral tablet 1 tab(s), Oral, Daily, # 30 tab(s), 11 Refill(s), Start Date: 11/14/15 13:45:00 CDT, Pharmacy: [id number] Start Date: 11/14/15 Stop Date: 04/26/16 Status: Completed Results No data available for this section Immunizations Vaccine Date Refusal Reason tetanus/diphth/pertuss (Tdap) adult/adol 07/28/16 tetanus/diphth/pertuss (Tdap) adult/adol 04/27/16 Patient Refuses Procedures Procedure Date Related Diagnosis Body Site Esophagogastroduodenoscopy1 09/10/16 Tubal Ligation Post Partum2 04/27/16 Dilation and curettage of uterus 2012 Dilation and curettage of uterus 2000 1auto-populated from documented surgical [id number] from documented surgical case Social History No data available for this section Assessment and Plan No data available for this section
--- OUTSIDE RECORDS SUMMARY | 2016-11-03 00:05 | XMS REPORT | Summary of Care ---
:1990 Author Organization [facility] Address [address] [place] [address] Care Team Providers Name Role Phone Physician, Primary Care Primary Care Physician Unavailable Encounter Date(s): 01/16/16 - 01/16/16 [facility], [address] [place], [place] [address] Discharge Diagnosis: Extreme immaturity of , gestational age 24 completed weeks Discharge Diagnosis: related exhaustion and fatigue, unspecified trimester Discharge Diagnosis: Unspecified asthma, uncomplicated Discharge Disposition: 01 Discharged to Home or Self Care Attending Physician: Holli Elliott DO Referring Physician: Holli Elliott DO Vital Signs Most recent to oldest [Reference Range]: 1 Peripheral Pulse Rate [60-100 bpm] 100 bpm (01/16/16 10:42 AM) Blood Pressure [90-130/60-90 mmHg] 116/68mmHg (01/16/16 10:42 AM) Most recent to oldest [Reference Range]: 1 Weight Dosing 119.30 kg1 (01/16/16 10:42 AM) Weight Measured 119.3 kg (01/16/16 10:42 AM) 1Result Comment: This result was because the dosing weight was either not entered or it is>30 days old. This result is based off: Weight Measured January 16, 2016 10:42:00 CDT by Tory Cabezas Problem List Condition Effective Dates Status Health Status Informant Acute gastritis(Confirmed) Active Adolescent (Confirmed) Active Maternal tobacco use(Confirmed) Active Pancreatitis(Confirmed) Active (Confirmed) < 2010 Resolved (Confirmed) < 2011 Resolved (Confirmed) 05/25/12 - 02/22/13 Resolved (Confirmed) 07/07/14 - 03/29/15 Resolved Allergies, Adverse Reactions, Alerts Substance Reaction Severity Status codeine Active morphine Rash Active Reglan Active Vicodin Rash Active Medications albuterol CFC free 90 mcg/inh inhalation aerosol puff(s), Inhale, QID, 0 Refill(s), Start Date: 08/31/15 13:37:00 ENVIRONMENTAL HEALTH MANAGER Start Date: 08/31/15 Stop Date: 10/26/15 Status: CompletedCarafate 1 g oral tablet 1 tab(s), Oral, QIDACHS, X 14 days, # 56 tab(s), 0 Refill(s), Start Date: 4:34:00 ENVIRONMENTAL HEALTH MANAGER Start Date: 06/26/15 Stop Date: 07/10/15 Status: CompletedCarafate 1 g oral tablet 1 tab(s), Oral, QID, # 28 tab(s), 0 Refill(s), Start Date: 10/26/15 13:03:00 ENVIRONMENTAL HEALTH MANAGER Start Date: 10/26/15 Stop Date: 11/14/15 Status: DiscontinuedCeleXA 10 mg oral tablet 2 tab(s), Oral, Daily, 0 Refill(s), Start Date: 08/31/15 13:36:00 ENVIRONMENTAL HEALTH MANAGER Start Date: 08/31/15 Status: OrderedClassic oral tablet 1 tab(s), Oral, Daily, # 30 tab(s), 11 Refill(s), Start Date: 08/31/15 14:03:00 ENVIRONMENTAL HEALTH MANAGER, Pharmacy: [facility] Start Date: 08/31/15 Status: Orderedferrous sulfate 325 mg (65 mg elemental iron) oral tablet 1 tab(s), Oral, Daily, # 90 tab(s), 2 Refill(s), Start Date: 01/16/16 13:33:00 CDT, Pharmacy: [id number] Start Date: 01/16/16 Status: Orderedferrous sulfate 325 mg (65 mg elemental iron) oral tablet 1 tab(s), Oral, Daily, # 90 tab(s), 0 Refill(s), Start Date: 01/16/16 13:32:00 CDT Start Date: 01/16/16 Stop Date: 01/16/16 Status: DiscontinuedMacrobid 100 mg oral capsule 1 cap(s), Oral, BID, # 14 cap(s), 0 Refill(s), Start Date: 02/04/16 20:15:00 CDT , Pharmacy: [id number] Start Date: 02/04/16 Stop Date: 02/06/16 Status: DiscontinuedMacrobid 100 mg oral capsule 1 cap(s), Oral, BID, # 14 cap(s), 0 Refill(s), Start Date: 11/26/15 15:08:00 CDT , Pharmacy: [id number] Start Date: 11/26/15 Stop Date: 12/20/15 Status: Completedpantoprazole 40 mg oral delayed release tablet 1 tab(s), Oral, Daily, X 14 days, # 14 tab(s), 0 Refill(s), Start Date: 4:33:00 ENVIRONMENTAL HEALTH MANAGER Start Date: 06/26/15 Stop Date: 07/10/15 Status: CompletedPercocet 5/325 oral tablet 2 tab(s), Oral, q6hr, PRN for pain, X 3 days, # 15 tab(s), 0 Refill(s), Start Date: 06/26/15 4:33:00 ENVIRONMENTAL HEALTH MANAGER Start Date: 06/26/15 Stop Date: 06/29/15 Status: CompletedPercocet 5/325 oral tablet 1 or 2 tabs, Oral, q4hr, PRN pain moderate 4-7, Do not work or drive with this medication, # 12 tab(s), 0 Refill(s), Start Date: 08/18/15 0:20:00 ENVIRONMENTAL HEALTH MANAGER Special Instructions: Do not work or drive with this medication Start Date: 08/18/15 Stop Date: 08/21/15 Status: CompletedpredniSONE 20 mg oral tablet See Instructions, 2 tab(s) Oral Daily for 5 days then 1 tab daily for 5 days then 0.5 tab daily for 5 days, # 20 tab(s), 0 Refill(s), Start Date: 12/20/15 14 :03:00 CDT, Pharmacy: [id number] Special Instructions: 2 tab(s) Oral Daily for 5 days then 1 tab daily for 5 days then 0.5 tab daily for 5 days Start Date: 12/20/15 Stop Date: 01/28/16 Status: CompletedProAir HFA 90 mcg/inh inhalation aerosol 2 puff(s), Inhale, QID, PRN for wheezing, # 1 boxes, 2 Refill(s), Start Date: 10:48:39 CDT, Pharmacy: [place] [id number] Start Date: 01/16/16 Status: OrderedProAir HFA 90 mcg/inh inhalation aerosol 2 puff(s), Inhale, QID, PRN for wheezing, # 1 boxes, 2 Refill(s), Start Date: 13:59:00 ENVIRONMENTAL HEALTH MANAGER, Pharmacy: [place] [id number] Start Date: 10/17/15 Stop Date: 01/16/16 Status: Discontinuedpromethazine 25 mg oral tablet 1 tab(s), Oral, q4hr, PRN for nausea/vomiting, # 60 tab(s), 0 Refill(s), Start Date: 08/31/15 14:03:00 ENVIRONMENTAL HEALTH MANAGER, Pharmacy: [place] [id number] Start Date: 08/31/15 Stop Date: 11/14/15 Status: DiscontinuedSingulair 10 mg oral tablet 1 tab(s), Oral, qPM, # 30 tab(s), 5 Refill(s), Start Date: 12/20/15 14:03:00 CDT , Pharmacy: [place] [id number] Start Date: 12/20/15 Status: OrderedSymbicort 80 mcg-4.5 mcg/inh inhalation aerosol 2 puff(s), Inhale, BID, # 7 gm, 11 Refill(s), Start Date: 11/14/15 13:45:00 CDT , Pharmacy: [place] [id number] Start Date: 11/14/15 Status: OrderedZofran ODT 4 mg oral tablet, disintegrating 1 tab(s), Oral, q6hr, PRN nausea, X 3 days, # 10 tab(s), 0 Refill(s), Start Date : 06/26/15 4:33:00 ENVIRONMENTAL HEALTH MANAGER Start Date: 06/26/15 Stop Date: 06/29/15 Status: CompletedZofran ODT 4 mg oral tablet, disintegrating 1 tab(s), Oral, As Indicated, PRN nausea/vomiting, # 10 tab(s), 0 Refill(s), Start Date: 08/18/15 0:19:00 ENVIRONMENTAL HEALTH MANAGER Start Date: 08/18/15 Stop Date: 08/31/15 Status: DiscontinuedZofran ODT 4 mg oral tablet, disintegrating 1 tab(s), Oral, q4hr, PRN nausea/vomiting, X 5 days, # 30 tab(s), 0 Refill(s), Start Date: 08/18/15 14:15:00 ENVIRONMENTAL HEALTH MANAGER Start Date: 08/18/15 Stop Date: 08/23/15 Status: CompletedZyrTEC 10 mg oral tablet 1 tab(s), Oral, Daily, # 30 tab(s), 11 Refill(s), Start Date: 11/14/15 13:45:00 CDT, Pharmacy: [id number] Start Date: 11/14/15 Status: Ordered Results No data available for this section Immunizations No data available for this section Procedures Procedure Date Related Diagnosis Body Site Dilation and curettage of uterus 2012 Dilation and curettage of uterus 2000 Social History No data available for this section Assessment and Plan No data available for this section
--- OUTSIDE RECORDS SUMMARY | 2016-11-03 00:05 | XMS REPORT | Summary of Care ---
:1990 Author Organization [facility] Address [address] [place] [address] Care Team Providers Name Role Phone Alta Miller Faviola Primary Care Physician Encounter Date(s): 10/13/16 - 10/13/16 [facility], [address] [place], [place] [address] Discharge Disposition: 01 Discharged to Home or Self Care Attending Physician: LEONEL Jacob Referring Physician: Brian Leyva MD Vital Signs No data available for this [...] QID, 0 Refill(s), Start Date: 08/31/15 13:37:00 SANITATION ENGINEER Start Date: 08/31/15 Stop Date: 10/26/15 Status: CompletedCarafate 1 g oral tablet 1 tab(s), Oral, QID, # 120 tab(s), 0 Refill(s), Start Date: 07/25/16 13:18:00 SANITATION ENGINEER, Pharmacy: [id number] Start Date: 07/25/16 Status: OrderedCarafate 1 g oral tablet 1 tab(s), Oral, QIDACHS, # 56 tab(s), 0 Refill(s), Start Date: 06/06/16 12:51: 00 CDT Start Date: 06/06/16 Stop Date: 06/12/16 Status: DiscontinuedCarafate 1 g oral tablet 1 tab(s), Oral, QIDACHS, X 14 days, # 56 tab(s), 0 Refill(s), Start Date: 4:34:00 SANITATION ENGINEER Start Date: 06/26/15 Stop Date: 07/10/15 Status: CompletedCarafate 1 g oral tablet 1 tab(s), Oral, QID, # 28 tab(s), 0 Refill(s), Start Date: 10/26/15 13:03:00 SANITATION ENGINEER Start Date: 10/26/15 Stop Date: 11/14/15 Status: DiscontinuedCeleXA 10 mg oral tablet 2 tab(s), Oral, Daily, 0 Refill(s), Start Date: 08/31/15 13:36:00 SANITATION ENGINEER Start Date: 08/31/15 Stop Date: 07/14/16 Status: DiscontinuedCeleXA 20 mg oral tablet 1 tab(s), Oral, Daily, # 30 tab(s), 2 Refill(s), Start Date: 07/14/16 12:54:00 SANITATION ENGINEER, Pharmacy: [facility] Start Date: 07/14/16 Status: Orderedcetirizine 5 mg oral tablet 1 tab(s), Oral, Daily, # 10 tab(s), 0 Refill(s), Start Date: 09/01/16 15:51:00 SANITATION ENGINEER, Pharmacy: [id number] Start Date: 09/01/16 Stop Date: 09/12/16 Status: CompletedClassic oral tablet 1 tab(s), Oral, Daily, # 30 tab(s), 11 Refill(s), Start Date: 08/31/15 14:03:00 SANITATION ENGINEER, Pharmacy: [id number] Start Date: 08/31/15 Stop Date: 08/01/16 Status: Completeddicyclomine 20 mg oral tablet 1 tab(s), Oral, QID, PRN abdominal pain, # 40 tab(s), 0 Refill(s), Start Date: 08/06/16 0:16:00 SANITATION ENGINEER Start Date: 08/06/16 Stop Date: 08/19/16 Status: Completeddicyclomine 20 mg oral tablet 1 tab(s), Oral, QID, PRN abdominal pain, # 40 tab(s), 0 Refill(s), Start Date: 10/13/16 17:43:00 SANITATION ENGINEER Start Date: 10/13/16 Stop Date: 10/23/16 Status: OrderedDilaudid 2 mg oral tablet 1 tab(s), Oral, q8hr interval, PRN for pain, # 30 tab(s), 0 Refill(s), Start Date: 08/28/16 18:51:00 SANITATION ENGINEER Start Date: 08/28/16 Stop Date: 09/09/16 Status: Completedferrous sulfate 325 mg (65 mg elemental iron) oral tablet 1 tab(s), Oral, Daily, # 90 tab(s), 2 Refill(s), Start Date: 01/16/16 13:33:00 CDT, Pharmacy: [facility] Start Date: 01/16/16 Stop Date: 04/28/16 Status: Discontinuedferrous sulfate 325 mg (65 mg elemental iron) oral tablet 1 tab(s), Oral, Daily, # 90 tab(s), 0 Refill(s), Start Date: 01/16/16 13:32:00 CDT Start Date: 01/16/16 Stop Date: 01/16/16 Status: DiscontinuedFlagyl 500 mg oral tablet 1 tab(s), Oral, q12hr, # 14 tab(s), 0 Refill(s), Start Date: 02/23/16 23:20:00 CDT, Pharmacy: [facility] Start Date: 02/23/16 Stop Date: 03/12/16 Status: Discontinuedibuprofen 600 mg oral tablet 1 tab(s), Oral, q6hr, PRN pain mild 1-3, # 30 tab(s), 0 Refill(s), Start Date: 04/28/16 9:49:00 CDT, Pharmacy: [facility] Start Date: 04/28/16 Stop Date: 08/01/16 Status: CompletedMacrobid 100 mg oral capsule 1 cap(s), Oral, BID, # 14 cap(s), 0 Refill(s), Start Date: 02/04/16 20:15:00 CDT , Pharmacy: [place] [id number] Start Date: 02/04/16 Stop Date: 02/06/16 Status: DiscontinuedMacrobid 100 mg oral capsule 1 cap(s), Oral, BID, # 14 cap(s), 0 Refill(s), Start Date: 11/26/15 15:08:00 CDT , Pharmacy: [place] [id number] Start Date: 11/26/15 Stop Date: 12/20/15 Status: Completedmagnesium citrate 1.745 g/30 mL oral liquid 150 mL, Oral, ONETIME, # 300 mL, 0 Refill(s), Start Date: 08/01/16 18:28:00 SANITATION ENGINEER Start Date: 08/01/16 Stop Date: 08/01/16 Status: CompletedMiraLax oral powder for reconstitution 17 gm=, Oral, Daily, dissolve in water before taking, X 31 days, # 527 gm, 0 Refill(s), Start Date: 08/01/16 18:28:00 SANITATION ENGINEER Special Instructions: dissolve in water before taking Start Date: 08/01/16 Stop Date: 08/04/16 Status: Completedomeprazole 40 mg oral delayed release capsule 1 cap(s), Oral, Daily, # 30 cap(s), 0 Refill(s), Start Date: 07/25/16 13:18:00 SANITATION ENGINEER, Pharmacy: [place] [address] Start Date: 07/25/16 Stop Date: 09/12/16 Status: Completedomeprazole 40 mg oral delayed release capsule 1 cap(s), Oral, Daily, # 30 cap(s), 0 Refill(s), Start Date: 09/10/16 10:56:00 SANITATION ENGINEER, Pharmacy: [place] [address] Start Date: 09/10/16 Status: Orderedondansetron 4 mg oral tablet, disintegrating 1 tab(s), Oral, TID, PRN nausea/vomiting, Start Date: 06/06/16 10:52:00 CDT Start Date: 06/06/16 Stop Date: 08/01/16 Status: CompletedoxyCODONE-acetaminophen 5 mg-325 mg oral tablet 1 tab(s), Oral, TID, PRN pain severe 8-10, X 7 days, # 21 tab(s), 0 Refill(s), Start Date: 06/30/16 9:59:27 SANITATION ENGINEER, [facility] Start Date: 06/30/16 Stop Date: 07/07/16 Status: CompletedoxyCODONE-acetaminophen 5 mg-325 mg oral tablet 1 tab(s), Oral, TID, PRN pain severe 8-10, X 7 days, # 21 tab(s), 0 Refill(s), Start Date: 06/23/16 15:23:20 CDT, Pharmacy: [facility] Start Date: 06/23/16 Stop Date: 06/30/16 Status: CompletedoxyCODONE-acetaminophen 5 mg-325 mg oral tablet 2 tab(s), Oral, TID, PRN for pain, Only for severe pain 8-10 not to exceed 4000 mg acetaminophen per day, X 14 days, # 84 tab(s), 0 Refill(s), Start Date: 07/18/16 11:01:00 SANITATION ENGINEER, other reason (Rx) Special Instructions: Only for [...] 0 Refill(s), Start Date: 12:59:00 CDT, [facility] Start Date: 04/11/16 Stop Date: 04/26/16 Status: CompletedoxyCODONE-acetaminophen 5 mg-325 mg oral tablet 1 tab(s), Oral, TID, PRN for pain, Only for severe pain 8-10, X 14 days, # 42 tab(s), 0 Refill(s), Start Date: 07/10/16 9:02:23 SANITATION ENGINEER, Pharmacy: [facility] Special Instructions: Only for severe pain 8-10 Start Date: 07/10/16 Stop Date: 07/18/16 Status: CompletedoxyCODONE-acetaminophen 5 mg-325 mg oral tablet 1 tab(s), Oral, q6hr interval, PRN pain severe 8-10, X 10 days, # 40 tab(s), 0 Refill(s), Start Date: 06/12/16 14:19:00 CDT, Pharmacy: [facility] Start Date: 06/12/16 Stop Date: 06/22/16 Status: CompletedoxyCODONE-acetaminophen 5 mg-325 mg oral tablet 1 tab(s), Oral, Daily, PRN for pain, Only for severe pain 8-10, X 7 days, # 7 tab(s), 0 Refill(s), Start Date: 07/07/16 8:39:00 SANITATION ENGINEER, Pharmacy: [facility] Special Instructions: Only for severe pain 8-10 Start Date: 07/07/16 Stop Date: 07/10/16 Status: CompletedoxyCODONE-acetaminophen 5 mg-325 mg oral tablet 2 tab(s), Oral, TID, PRN for pain, Only for severe pain 8-10 not to exceed 4000 mg acetaminophen per day, X 7 days, # 42 tab(s), 0 Refill(s), Start Date: 07/18/16 11:44:08 SANITATION ENGINEER, Pharmacy: [facility] Special Instructions: Only for severe pain 8-10 not to exceed 4000 mg acetaminophen per day Start Date: 07/18/16 Stop Date: 07/25/16 Status: CompletedoxyCODONE-acetaminophen 5mg-325mg oral tablet 2 tab(s), Oral, TID, PRN for pain, Only for severe pain 8-10 not to exceed 4000 mg acetaminophen per day, X 7 days, # 42 tab(s), 0 Refill(s), Start Date: 07/25/16 12:04:23 SANITATION ENGINEER, Pharmacy: [facility] Special Instructions: Only for severe pain 8-10 not to exceed 4000 mg acetaminophen per day Start Date: 07/25/16 Stop Date: 08/01/16 Status: Completedpantoprazole 40 mg oral delayed release tablet 1 tab(s), Oral, Daily, X 14 days, # 14 tab(s), 0 Refill(s), Start Date: 4:33:00 SANITATION ENGINEER Start Date: 06/26/15 Stop Date: 07/10/15 Status: Completedpantoprazole 40 mg oral delayed release tablet 1 tab(s), Oral, Daily, # 30 tab(s), 0 Refill(s), Start Date: 06/06/16 12:51:00 CDT Start Date: 06/06/16 Stop Date: 06/12/16 Status: DiscontinuedPercocet 5/325 oral tablet 1 or 2 tabs, Oral, q4hr, PRN pain moderate 4-7, Do not work or drive with this medication, X 1 days, # 4 tab(s), 0 Refill(s), Start Date: 10/11/16 23:52:00 SANITATION ENGINEER Special Instructions: Do not work or drive with this medication Start Date: 10/11/16 Stop Date: 10/12/16 Status: CompletedPercocet 5/325 oral tablet 1 tab(s), Oral, TID, PRN for pain, X 7 days, # 21 tab(s), 0 Refill(s), Start Date: 09/16/16 8:47:54 SANITATION ENGINEER, Pharmacy: [facility] Start Date: 09/16/16 Stop Date: 09/22/16 Status: CompletedPercocet 5/325 oral tablet 1 tab(s), Oral, q6hr, PRN for pain, # 30 tab(s), 0 Refill(s), Start Date: 9:49:26 CDT, Pharmacy: [facility] Start Date: 04/28/16 Stop Date: 05/28/16 Status: CompletedPercocet 5/325 oral tablet 1 tab(s), Oral, Daily, PRN for pain, # 3 tab(s), 0 Refill(s), Start Date: 9:47:00 SANITATION ENGINEER, Pharmacy: [facility] Start Date: 09/30/16 Stop Date: 10/13/16 Status: CompletedPercocet 5/325 oral tablet 1 tab(s), Oral, q6hr, PRN for pain, # 10 tab(s), 0 Refill(s), Start Date: 8:35:41 CDT, Pharmacy: [facility] Start Date: 04/18/16 Stop Date: 04/28/16 Status: DiscontinuedPercocet 5/325 oral tablet 1 tab(s), Oral, q4hr, PRN for pain, X 5 days, # 20 tab(s), 0 Refill(s), Start Date: 06/01/16 0:48:00 CDT Start Date: 06/01/16 Stop Date: 06/06/16 Status: CompletedPercocet 5/325 oral tablet 2 tab(s), Oral, q6hr, PRN for pain, X 3 days, # 15 tab(s), 0 Refill(s), Start Date: 06/26/15 4:33:00 SANITATION ENGINEER Start Date: 06/26/15 Stop Date: 06/29/15 Status: CompletedPercocet 5/325 oral tablet 1 tab(s), Oral, q6hr interval, PRN for pain, X 7 days, # 28 tab(s), 0 Refill(s) , Start Date: 09/09/16 11:45:52 SANITATION ENGINEER, Pharmacy: [facility] Start Date: 09/09/16 Stop Date: 09/16/16 Status: CompletedPercocet 5/325 oral tablet 1 or 2 tabs, Oral, q4hr, PRN pain moderate 4-7, Do not work or drive with this medication, # 12 tab(s), 0 Refill(s), Start Date: 08/18/15 0:20:00 SANITATION ENGINEER Special Instructions: Do not work or drive with this medication Start Date: 08/18/15 Stop Date: 08/21/15 Status: CompletedPercocet 5/325 oral tablet 1 or 2 tabs, Oral, q4hr, PRN pain moderate 4-7, Do not work or drive with this medication, # 12 tab(s), 0 Refill(s), Start Date: 09/27/16 16:08:00 SANITATION ENGINEER Special Instructions: Do not work or drive with this medication Start Date: 09/27/16 Stop Date: 09/29/16 Status: CompletedPercocet 5/325 oral tablet 1 tab(s), Oral, q4hr, PRN for pain, # 12 tab(s), 0 Refill(s), Start Date: 11:11:48 SANITATION ENGINEER Start Date: 10/06/16 Status: OrderedPercocet 5/325 oral tablet 1 tab(s), Oral, q4hr, PRN for pain, # 12 tab(s), 0 Refill(s), Start Date: 13:55:00 SANITATION ENGINEER Start Date: 10/03/16 Stop Date: 10/06/16 Status: CompletedPercocet 5/325 oral tablet 1 tab(s), Oral, q6hr, PRN for pain, # 10 tab(s), 0 Refill(s), Start Date: 22:53:00 CDT, Pharmacy: [facility] Start Date: 04/17/16 Stop Date: 04/18/16 Status: DiscontinuedPercocet 5/325 oral tablet 1 tab(s), Oral, TID, PRN for pain, # 30 tab(s), 0 Refill(s), Start Date: 15:49:00 SANITATION ENGINEER Start Date: 09/01/16 Stop Date: 09/09/16 Status: CompletedPercocet 5/325 oral tablet 1 tab(s), Oral, BID, PRN for pain, X 7 days, # 14 tab(s), 0 Refill(s), Start Date: 09/22/16 9:06:36 SANITATION ENGINEER, Pharmacy: [facility] Start Date: 09/22/16 Stop Date: 09/30/16 Status: CompletedPhenergan 25 mg oral tablet 1 tab(s), Oral, q4hr, PRN for nausea/vomiting, X 5 days, # 30 tab(s), 0 Refill(s ), Start Date: 08/24/16 12:32:00 SANITATION ENGINEER Start Date: 08/24/16 Stop Date: 08/29/16 Status: CompletedpredniSONE 20 mg oral tablet See Instructions, 2 tab(s) Oral Daily for 5 days then 1 tab daily for 5 days then 0.5 tab daily for 5 days, # 20 tab(s), 0 Refill(s), Start Date: 12/20/15 14 :03:00 CDT, Pharmacy: [facility] Special Instructions: 2 tab(s) Oral Daily for 5 days then 1 tab daily for 5 days then 0.5 tab daily for 5 days Start Date: 12/20/15 Stop Date: 01/28/16 Status: CompletedProAir HFA 90 mcg/inh inhalation aerosol 2 puff(s), Inhale, QID, PRN for wheezing, # 1 boxes, 2 Refill(s), Start Date: 10:48:39 CDT, Pharmacy: [facility] Start Date: 01/16/16 Status: OrderedProAir HFA 90 mcg/inh inhalation aerosol 2 puff(s), Inhale, QID, PRN for wheezing, # 1 boxes, 2 Refill(s), Start Date: 13:59:00 SANITATION ENGINEER, Pharmacy: [facility] Start Date: 10/17/15 Stop Date: 01/16/16 Status: Discontinuedpromethazine 25 mg oral tablet 1 tab(s), Oral, q6hr interval, PRN as needed for nausea/vomiting, X 3 days, # 12 tab(s), 0 Refill(s), Start Date: 06/06/16 12:52:00 CDT Start Date: 06/06/16 Stop Date: 06/09/16 Status: Completedpromethazine 25 mg oral tablet 1 tab(s), Oral, q6hr, Dispense, # 3 tab(s), 0 Refill(s), Start Date: 08/02/16 21 :58:00 SANITATION ENGINEER Special Instructions: Dispense Start Date: 08/02/16 Stop Date: 08/19/16 Status: Completedpromethazine 25 mg oral tablet 1 tab(s), Oral, q6hr, # 12 tab(s), 0 Refill(s), Start Date: 08/02/16 21:56:00 SANITATION ENGINEER Start Date: 08/02/16 Stop Date: 08/19/16 Status: Completedpromethazine 25 mg oral tablet 1 tab(s), Oral, q4hr, PRN for nausea/vomiting, # 60 tab(s), 0 Refill(s), Start Date: 08/31/15 14:03:00 SANITATION ENGINEER, Pharmacy: [facility] Start Date: 08/31/15 Stop Date: 11/14/15 Status: DiscontinuedSingulair 10 mg oral tablet 1 tab(s), Oral, qPM, # 30 tab(s), 5 Refill(s), Start Date: 12/20/15 14:03:00 CDT , Pharmacy: [place] [address] Start Date: 12/20/15 Stop Date: 04/26/16 Status: CompletedSymbicort 80 mcg-4.5 mcg/inh inhalation aerosol 2 puff(s), Inhale, BID, # 7 gm, 11 Refill(s), Start Date: 11/14/15 13:45:00 CDT , Pharmacy: [place] [address] Start Date: 11/14/15 Stop Date: 04/26/16 Status: CompletedtraMADol 50 mg oral tablet 1 tab(s), Oral, q4hr interval, PRN as needed for pain, X 3 days, # 18 tab(s), 0 Refill(s), Start Date: 08/24/16 12:32:00 SANITATION ENGINEER Start Date: 08/24/16 Stop Date: 08/27/16 Status: CompletedtraMADol 50 mg oral tablet 1 tab(s), Oral, q4hr, PRN for pain, # 10 tab(s), 0 Refill(s), Start Date: 21:27:00 SANITATION ENGINEER Start Date: 08/09/16 Stop Date: 08/19/16 Status: CompletedtraMADol 50 mg oral tablet 1 tab(s), Oral, q4hr, PRN as needed for pain, Dispense, # 4 tab(s), 0 Refill(s) , Start Date: 08/02/16 21:58:00 SANITATION ENGINEER Special Instructions: Dispense Start Date: 08/02/16 Stop Date: 08/19/16 Status: CompletedtraMADol 50 mg oral tablet 1 tab(s), Oral, q4hr interval, PRN as needed for pain, # 18 tab(s), 0 Refill(s) , Start Date: 08/02/16 21:56:00 SANITATION ENGINEER Start Date: 08/02/16 Stop Date: 08/19/16 Status: CompletedUltram 50 mg oral tablet 1 or2 tab(s), Oral, q6hr interval, PRN for pain, Not work or drive with this medication, # 20 tab(s), 0 Refill(s), Start Date: 08/19/16 18:37:00 SANITATION ENGINEER Special Instructions: Not work or drive with this medication Start Date: 08/19/16 Stop Date: 09/01/16 Status: CompletedZofran 4 mg oral tablet 1 tab(s), Oral, TID, PRN nausea/vomiting, # 10 tab(s), 0 Refill(s), Start Date: 08/09/16 21:28:00 SANITATION ENGINEER Start Date: 08/09/16 Stop Date: 08/19/16 Status: [...] 0 Refill(s), Start Date : 06/26/15 4:33:00 SANITATION ENGINEER Start Date: 06/26/15 Stop Date: 06/29/15 Status: CompletedZofran ODT 4 mg oral tablet, disintegrating 1 tab(s), Oral, TID, # 9 tab(s), 0 Refill(s), Start Date: 09/09/16 11:45:51 SANITATION ENGINEER , Pharmacy: [facility] Start Date: 09/09/16 Stop Date: 09/12/16 Status: CompletedZofran ODT 4 mg oral tablet, disintegrating 1 tab(s), Oral, As Indicated, PRN nausea/vomiting, # 10 tab(s), 0 Refill(s), Start Date: 08/18/15 0:19:00 SANITATION ENGINEER Start Date: 08/18/15 Stop Date: 08/31/15 Status: DiscontinuedZofran ODT 4 mg oral tablet, disintegrating 1 tab(s), Oral, q8hr interval, PRN nausea/vomiting, # 12 tab(s), 0 Refill(s), Start Date: 09/27/16 16:08:00 SANITATION ENGINEER Start Date: 09/27/16 Status: OrderedZofran ODT 4 mg oral tablet, disintegrating 1 tab(s), Oral, QID, X 3 days, # 30 tab(s), 0 Refill(s), Start Date: 08/28/16 18 :51:00 SANITATION ENGINEER Start Date: 08/28/16 Stop Date: 09/09/16 Status: CompletedZofran ODT 4 mg oral tablet, disintegrating 1 tab(s), Oral, q4hr, PRN nausea/vomiting, X 5 days, # 30 tab(s), 0 Refill(s), Start Date: 08/18/15 14:15:00 SANITATION ENGINEER Start Date: 08/18/15 Stop Date: 08/23/15 Status: CompletedZofran ODT 4 mg oral tablet, disintegrating 1 tab(s), Oral, TID, PRN nausea/vomiting, # 10 tab(s), 0 Refill(s), Start Date: 09/12/16 12:24:00 SANITATION ENGINEER Start Date: 09/12/16 Stop Date: 10/01/16 Status: CompletedZyrTEC 10 mg oral tablet 1 tab(s), Oral, Daily, # 30 tab(s), 11 Refill(s), Start Date: 11/14/15 13:45:00 CDT, Pharmacy: [facility] Start Date: 11/14/15 Stop Date: 04/26/16 Status: Completed Results No data available for this section Immunizations Vaccine Date Refusal Reason tetanus/diphth/pertuss (Tdap) adult/adol 07/28/16 tetanus/diphth/pertuss (Tdap) adult/adol 04/27/16 Patient Refuses Procedures Procedure Date Related Diagnosis Body Site Cholecystectomy Laparoscopic1 10/03/16 Esophagogastroduodenoscopy2 09/10/16 Tubal Ligation Post Partum3 04/27/16 Colonoscopy 2013 Dilation and curettage of uterus 2012 Dilation and curettage of uterus 2000 1auto-populated from documented surgical [id number] from documented surgical [id number] from documented surgical case Social History No data available for this section Assessment and Plan No data available for this section
--- OUTSIDE RECORDS SUMMARY | 2016-11-03 00:06 | XMS REPORT | Summary of Care ---
:1990 Author Organization [facility] Address [address] [place] [id number]- Care Team Providers Name Role Phone Alta Miller Primary Care Physician Encounter Date(s): 09/10/16 - 09/10/[address] [id number]- [facility] Discharge Disposition: 01 Discharged to Home or Self Care Attending Physician: Kevan Vincent DO Admitting Physician: Kevan Vincent DO Vital Signs Most recent to oldest 1 2 3 [Reference Range]: Temperature Temporal Artery 36.4 DegC [36-38 DegC] (09/10/16 10:56 AM) Temperature Temporal Artery 37.0 DegC [36.0-38.0 DegC] (09/10/16 9:55 AM) Heart Rate Monitored [60-100 64 bpm 71 bpm 68 bpm bpm] (09/10/16 11:35 AM) (09/10/16 11:23 AM) (09/10/16 11:12 AM) Respiratory Rate [12-20 16 br/min 16 br/min 18 br/min br/min] (09/10/16 11:35 AM) (09/10/16 11:23 AM) (09/10/16 11:12 AM) SpO2 99 % 98 % 93 % (09/10/16 11:23 AM) (09/10/16 11:12 AM) (09/10/16 11:06 AM) SpO2 Location Right hand Right hand Left hand (09/10/16 11:23 AM) (09/10/16 11:12 AM) (09/10/16 11:06 AM) Blood Pressure [90-130/60-90 132/59mmHg 99/50mmHg 107/50mmHg mmHg] *HI* (09/10/16 11:12 AM) (09/10/16 11:06 AM) (09/10/16 11:23 AM) Mean Arterial Pressure 63 mmHg 63 mmHg 156 mmHg Monitor Measure (09/10/16 11:06 AM) (09/10/16 11:01 AM) (09/10/16 10:56 AM) Height/Length Measured 170.18 cm (09/10/16 9:55 AM) Height/Length Estimated 170.18 cm 170.18 cm (09/10/16 9:55 AM) (09/09/16 12:30 PM) Weight Estimated 108.9 kg 108.9 kg (09/10/16 9:55 AM) (09/09/16 12:30 PM) Weight Dosing 109.1 kg (09/10/16 9:55 AM) Weight Measured 109.1 kg (09/10/16 9:55 AM) BSA Measured 2.19 m2 (09/10/16 9:55 AM) BSA Estimated 2.27 m2 (09/10/16 9:55 AM) Body Mass Index Measured 37.67 kg/m2 (09/10/16 9:55 AM) Body Mass Index Estimated 37.6 kg/m2 (09/10/16 9:55 AM) Problem List Condition Effective Dates Status Health [...] QID, 0 Refill(s), Start Date: 08/31/15 13:37:00 [employer] Start Date: 08/31/15 Stop Date: 10/26/15 Status: CompletedCarafate 1 g oral tablet 1 tab(s), Oral, QID, # 120 tab(s), 0 Refill(s), Start Date: 07/25/16 13:18:00 [employer]IAN, Pharmacy: [facility] 797 Start Date: 07/25/16 Status: OrderedCarafate 1 g oral tablet 1 tab(s), Oral, QIDACHS, # 56 tab(s), 0 Refill(s), Start Date: 06/06/16 12:51: 00 CDT Start Date: 06/06/16 Stop Date: 06/12/16 Status: DiscontinuedCarafate 1 g oral tablet 1 tab(s), Oral, QIDACHS, X 14 days, # 56 tab(s), 0 Refill(s), Start Date: 4:34:00 [employer] Start Date: 06/26/15 Stop Date: 07/10/15 Status: CompletedCarafate 1 g oral tablet 1 tab(s), Oral, QID, # 28 tab(s), 0 Refill(s), Start Date: 10/26/15 13:03:00 [employer] Start Date: 10/26/15 Stop Date: 11/14/15 Status: DiscontinuedCeleXA 10 mg oral tablet 2 tab(s), Oral, Daily, 0 Refill(s), Start Date: 08/31/15 13:36:00 [employer] Start Date: 08/31/15 Stop Date: 07/14/16 Status: DiscontinuedCeleXA 20 mg oral tablet 1 tab(s), Oral, Daily, # 30 tab(s), 2 Refill(s), Start Date: 07/14/16 12:54:00 [employer]IAN, Pharmacy: [facility] 79 Start Date: 07/14/16 Status: Orderedcetirizine 5 mg oral tablet 1 tab(s), Oral, Daily, # 10 tab(s), 0 Refill(s), Start Date: 09/01/16 15:51:00 [employer] TECH[employer]ICIAN, Pharmacy: [facility] 797 Start Date: 09/01/16 Status: OrderedClassic oral tablet 1 tab(s), Oral, Daily, # 30 tab(s), 11 Refill(s), Start Date: 08/31/15 14:03:00 [employer]IAN, Pharmacy: [facility] 797 Start Date: 08/31/15 Stop Date: 08/01/16 Status: Completeddicyclomine 20 mg oral tablet 1 tab(s), Oral, QID, PRN abdominal pain, # 40 tab(s), 0 Refill(s), Start Date: 08/06/16 0:16:00 [employer] Start Date: 08/06/16 Stop Date: 08/19/16 Status: CompletedDilaudid 2 mg oral tablet 1 tab(s), Oral, q8hr interval, PRN for pain, # 30 tab(s), 0 Refill(s), Start Date: 08/28/16 18:51:00 [employer] Start Date: 08/28/16 Stop Date: 09/09/16 Status: Completedferrous sulfate 325 mg (65 mg elemental iron) oral tablet 1 tab(s), Oral, Daily, # 90 tab(s), 2 Refill(s), Start Date: 01/16/16 13:33:00 CDT, Pharmacy: [place] [id number] Start Date: 01/16/16 Stop Date: 04/28/16 Status: Discontinuedferrous sulfate 325 mg (65 mg elemental iron) oral tablet 1 tab(s), Oral, Daily, # 90 tab(s), 0 Refill(s), Start Date: 01/16/16 13:32:00 CDT Start Date: 01/16/16 Stop Date: 01/16/16 Status: DiscontinuedFlagyl 500 mg oral tablet 1 tab(s), Oral, q12hr, # 14 tab(s), 0 Refill(s), Start Date: 02/23/16 23:20:00 CDT, Pharmacy: [facility] 79 Start Date: 02/23/16 Stop Date: 03/12/16 Status: Discontinuedibuprofen 600 mg oral tablet 1 tab(s), Oral, q6hr, PRN pain mild 1-3, # 30 tab(s), 0 Refill(s), Start Date: 04/28/16 9:49:00 CDT, Pharmacy: [facility] 797 Start Date: 04/28/16 Stop Date: 08/01/16 Status: CompletedMacrobid 100 mg oral capsule 1 cap(s), Oral, BID, # 14 cap(s), 0 Refill(s), Start Date: 02/04/16 20:15:00 CDT , Pharmacy: [facility] 79 Start Date: 02/04/16 Stop Date: 02/06/16 Status: DiscontinuedMacrobid 100 mg oral capsule 1 cap(s), Oral, BID, # 14 cap(s), 0 Refill(s), Start Date: 11/26/15 15:08:00 CDT , Pharmacy: [facility] 79 Start Date: 11/26/15 Stop Date: 12/20/15 Status: Completedmagnesium citrate 1.745 g/30 mL oral liquid 150 mL, Oral, ONETIME, # 300 mL, 0 Refill(s), Start Date: 08/01/16 18:28:00 [employer] Start Date: 08/01/16 Stop Date: 08/01/16 Status: CompletedMiraLax oral powder for reconstitution 17 gm=, Oral, Daily, dissolve in water before taking, X 31 days, # 527 gm, 0 Refill(s), Start Date: 08/01/16 18:28:00 [employer] Start Date: 08/01/16 Stop Date: 08/04/16 Status: Completedomeprazole 40 mg oral delayed release capsule 1 cap(s), Oral, Daily, # 30 cap(s), 0 Refill(s), Start Date: 07/25/16 13:18:00 [employer]CH[employer]IAN, Pharmacy: [place] [address] Start Date: 07/25/16 Status: Orderedomeprazole 40 mg oral delayed release capsule 1 cap(s), Oral, Daily, # 30 cap(s), 0 Refill(s), Start Date: 09/10/16 10:56:00 [employer] TECH[employer]ICIAN, Pharmacy: [place] [address] Start Date: 09/10/16 Status: Orderedondansetron 4 mg oral tablet, disintegrating 1 tab(s), Oral, TID, PRN nausea/vomiting, Start Date: 06/06/16 10:52:00 CDT Start Date: 06/06/16 Stop Date: 08/01/16 Status: CompletedoxyCODONE-acetaminophen 5 mg-325 mg oral tablet 1 tab(s), Oral, TID, PRN pain severe 8-10, X 7 days, # 21 tab(s), 0 Refill(s), Start Date: 06/30/16 9:59:27 [employer] TECHNICIAN, Pharmacy: [facility] 797 Start Date: 06/30/16 Stop Date: 07/07/16 Status: CompletedoxyCODONE-acetaminophen 5 mg-325 mg oral tablet 1 tab(s), Oral, TID, PRN pain severe 8-10, X 7 days, # 21 tab(s), 0 Refill(s), Start Date: 06/23/16 15:23:20 CDT, Pharmacy: [facility] 797 Start Date: 06/23/16 Stop Date: 06/30/16 Status: CompletedoxyCODONE-acetaminophen 5 mg-325 mg oral tablet 2 tab(s), Oral, TID, PRN for pain, Only for severe pain 8-10 not to exceed 4000 mg acetaminophen per day, X 14 days, # 84 tab(s), 0 Refill(s), Start Date: 07/18/16 11:01:00 [employer]CHNICIAN, other reason (Rx) Start Date: 07/18/16 Stop Date: 07/18/16 Status: CompletedoxyCODONE-acetaminophen 5 mg-325 mg oral tablet 1 tab(s), Oral, q6hr interval, PRN pain severe 8-10, 0 Refill(s), Start Date: 10:53:00 CDT Start Date: 06/06/16 Stop Date: 06/12/16 Status: DiscontinuedoxyCODONE-acetaminophen 5 mg-325 mg oral tablet 1 tab(s), Oral, q4hr, PRN for pain, # 10 tab(s), 0 Refill(s), Start Date: 12:59:00 CDT, Pharmacy: [facility] 797 Start Date: 04/11/16 Stop Date: 04/26/16 Status: CompletedoxyCODONE-acetaminophen 5 mg-325 mg oral tablet 1 tab(s), Oral, TID, PRN for pain, Only for severe pain 8-10, X 14 days, # 42 tab(s), 0 Refill(s), Start Date: 07/10/16 9:02:23 [employer] TECHNICIAN, Pharmacy: [facility] 797 Start Date: 07/10/16 Stop Date: 07/18/16 Status: CompletedoxyCODONE-acetaminophen 5 mg-325 mg oral tablet 1 tab(s), Oral, q6hr interval, PRN pain severe 8-10, X 10 days, # 40 tab(s), 0 Refill(s), Start Date: 06/12/16 14:19:00 CDT, Pharmacy: [facility] 79 Start Date: 06/12/16 Stop Date: 06/22/16 Status: CompletedoxyCODONE-acetaminophen 5 mg-325 mg oral tablet 1 tab(s), Oral, Daily, PRN for pain, Only for severe pain 8-10, X 7 days, # 7 tab(s), 0 Refill(s), Start Date: 07/07/16 8:39:00 [employer] TECHNICIAN, Pharmacy: [place] [address] Start Date: 07/07/16 Stop Date: 07/10/16 Status: CompletedoxyCODONE-acetaminophen 5 mg-325 mg oral tablet 2 tab(s), Oral, TID, PRN for pain, Only for severe pain 8-10 not to exceed 4000 mg acetaminophen per day, X 7 days, # 42 tab(s), 0 Refill(s), Start Date: 07/18/16 11:44:08 [employer] TECHNICIAN, Pharmacy: [place] [address] Start Date: 07/18/16 Stop Date: 07/25/16 Status: CompletedoxyCODONE-acetaminophen 5mg-325mg oral tablet 2 tab(s), Oral, TID, PRN for pain, Only for severe pain 8-10 not to exceed 4000 mg acetaminophen per day, X 7 days, # 42 tab(s), 0 Refill(s), Start Date: 07/25/16 12:04:23 [employer] TECHNICIAN, Pharmacy: [facility] 79 Start Date: 07/25/16 Stop Date: 08/01/16 Status: Completedpantoprazole 40 mg oral delayed release tablet 1 tab(s), Oral, Daily, X 14 days, # 14 tab(s), 0 Refill(s), Start Date: 4:33:00 [employer]CHNICIAN Start Date: 06/26/15 Stop Date: 07/10/15 Status: Completedpantoprazole 40 mg oral delayed release tablet 1 tab(s), Oral, Daily, # 30 tab(s), 0 Refill(s), Start Date: 06/06/16 12:51:00 CDT Start Date: 06/06/16 Stop Date: 06/12/16 Status: DiscontinuedPercocet 5/325 oral tablet 1 tab(s), Oral, q6hr, PRN for pain, # 30 tab(s), 0 Refill(s), Start Date: 9:49:26 CDT, Pharmacy: [facility] 79 Start Date: 04/28/16 Stop Date: 05/28/16 Status: CompletedPercocet 5/325 oral tablet 1 tab(s), Oral, q6hr, PRN for pain, # 10 tab(s), 0 Refill(s), Start Date: 8:35:41 CDT, Pharmacy: [facility] 79 Start Date: 04/18/16 Stop Date: 04/28/16 Status: DiscontinuedPercocet 5/325 oral tablet 1 tab(s), Oral, q4hr, PRN for pain, X 5 days, # 20 tab(s), 0 Refill(s), Start Date: 06/01/16 0:48:00 CDT Start Date: 06/01/16 Stop Date: 06/06/16 Status: CompletedPercocet 5/325 oral tablet 2 tab(s), Oral, q6hr, PRN for pain, X 3 days, # 15 tab(s), 0 Refill(s), Start Date: 06/26/15 4:33:00 [employer] TECHNICIAN Start Date: 06/26/15 Stop Date: 06/29/15 Status: CompletedPercocet 5/325 oral tablet 1 tab(s), Oral, q6hr interval, PRN for pain, # 28 tab(s), 0 Refill(s), Start Date: 09/09/16 11:45:52 [employer] TECHNICIAN, Pharmacy: [facility] 79 Start Date: 09/09/16 Stop Date: 09/16/16 Status: OrderedPercocet 5/325 oral tablet 1 or 2 tabs, Oral, q4hr, PRN pain moderate 4-7, Do not work or drive with this medication, # 12 tab(s), 0 Refill(s), Start Date: 08/18/15 0:20:00 [employer] TECHNICIAN Start Date: 08/18/15 Stop Date: 08/21/15 Status: CompletedPercocet 5/325 oral tablet 1 tab(s), Oral, q6hr, PRN for pain, # 10 tab(s), 0 Refill(s), Start Date: 22:53:00 CDT, Pharmacy: [facility] 797 Start Date: 04/17/16 Stop Date: 04/18/16 Status: DiscontinuedPercocet 5/325 oral tablet 1 tab(s), Oral, TID, PRN for pain, # 30 tab(s), 0 Refill(s), Start Date: 15:49:00 [employer] TECHNICIAN Start Date: 09/01/16 Stop Date: 09/09/16 Status: CompletedPhenergan 25 mg oral tablet 1 tab(s), Oral, q4hr, PRN for nausea/vomiting, X 5 days, # 30 tab(s), 0 Refill(s ), Start Date: 08/24/16 12:32:00 [employer] TECHNICIAN Start Date: 08/24/16 Stop Date: 08/29/16 Status: CompletedpredniSONE 20 mg oral tablet See Instructions, 2 tab(s) Oral Daily for 5 days then 1 tab daily for 5 days then 0.5 tab daily for 5 days, # 20 tab(s), 0 Refill(s), Start Date: 12/20/15 14 :03:00 CDT, Pharmacy: [facility] 797 Start Date: 12/20/15 Stop Date: 01/28/16 Status: CompletedProAir HFA 90 mcg/inh inhalation aerosol 2 puff(s), Inhale, QID, PRN for wheezing, # 1 boxes, 2 Refill(s), Start Date: 10:48:39 CDT, Pharmacy: [facility] 7[facility] Start Date: 01/16/16 Status: OrderedProAir HFA 90 mcg/inh inhalation aerosol 2 puff(s), Inhale, QID, PRN for wheezing, # 1 boxes, 2 Refill(s), Start Date: 13:59:00 [employer] TECHNICIAN, Pharmacy: [facility] 797 Start Date: 10/17/15 Stop Date: [...] 0 Refill(s), Start Date: 08/02/16 21 :58:00 [employer] TECHNICIAN Start Date: 08/02/16 Stop Date: 08/19/16 Status: Completedpromethazine 25 mg oral tablet 1 tab(s), Oral, q6hr, # 12 tab(s), 0 Refill(s), Start Date: 08/02/16 21:56:00 [employer] TECHNICIAN Start Date: 08/02/16 Stop Date: 08/19/16 Status: Completedpromethazine 25 mg oral tablet 1 tab(s), Oral, q4hr, PRN for nausea/vomiting, # 60 tab(s), 0 Refill(s), Start Date: 08/31/15 14:03:00 [employer] TECHNICIAN, Pharmacy: [facility] 797 Start Date: 08/31/15 Stop Date: 11/14/15 Status: DiscontinuedSingulair 10 mg oral tablet 1 tab(s), Oral, qPM, # 30 tab(s), 5 Refill(s), Start Date: 12/20/15 14:03:00 CDT , Pharmacy: [facility] 797 Start Date: 12/20/15 Stop Date: 04/26/16 Status: CompletedSymbicort 80 mcg-4.5 mcg/inh inhalation aerosol 2 puff(s), Inhale, BID, # 7 gm, 11 Refill(s), Start Date: 11/14/15 13:45:00 CDT , Pharmacy: [facility] 797 Start Date: 11/14/15 Stop Date: 04/26/16 Status: CompletedtraMADol 50 mg oral tablet 1 tab(s), Oral, q4hr interval, PRN as needed for pain, X 3 days, # 18 tab(s), 0 Refill(s), Start Date: 08/24/16 12:32:00 [employer] TECHNICIAN Start Date: 08/24/16 Stop Date: 08/27/16 Status: CompletedtraMADol 50 mg oral tablet 1 tab(s), Oral, q4hr, PRN for pain, # 10 tab(s), 0 Refill(s), Start Date: 21:27:00 [employer] TECHNICIAN Start Date: 08/09/16 Stop Date: 08/19/16 Status: CompletedtraMADol 50 mg oral tablet 1 tab(s), Oral, q4hr, PRN as needed for pain, Dispense, # 4 tab(s), 0 Refill(s) , Start Date: 08/02/16 21:58:00 [employer] TECHNICIAN Start Date: 08/02/16 Stop Date: 08/19/16 Status: CompletedtraMADol 50 mg oral tablet 1 tab(s), Oral, q4hr interval, PRN as needed for pain, # 18 tab(s), 0 Refill(s) , Start Date: 08/02/16 21:56:00 [employer] TECHNICIAN Start Date: 08/02/16 Stop Date: 08/19/16 Status: CompletedUltram 50 mg oral tablet 1 or2 tab(s), Oral, q6hr interval, PRN for pain, Not work or drive with this medication, # 20 tab(s), 0 Refill(s), Start Date: 08/19/16 18:37:00 [employer] TECHNICIAN Start Date: 08/19/16 Stop Date: 09/01/16 Status: CompletedZofran 4 mg oral tablet 1 tab(s), Oral, TID, PRN nausea/vomiting, # 10 tab(s), 0 Refill(s), Start Date: 08/09/16 21:28:00 [employer] TECHNICIAN Start Date: 08/09/16 Stop Date: 08/19/16 Status: [...] 0 Refill(s), Start Date : 06/26/15 4:33:00 [employer] TECHNICIAN Start Date: 06/26/15 Stop Date: 06/29/15 Status: CompletedZofran ODT 4 mg oral tablet, disintegrating 1 tab(s), Oral, TID, # 9 tab(s), 0 Refill(s), Start Date: 09/09/16 11:45:51 [employer] TECHNICIAN , Pharmacy: [facility] 797 Start Date: 09/09/16 Stop Date: 09/12/16 Status: OrderedZofran ODT 4 mg oral tablet, disintegrating 1 tab(s), Oral, As Indicated, PRN nausea/vomiting, # 10 tab(s), 0 Refill(s), Start Date: 08/18/15 0:19:00 [employer] TECHNICIAN Start Date: 08/18/15 Stop Date: 08/31/15 Status: DiscontinuedZofran ODT 4 mg oral tablet, disintegrating 1 tab(s), Oral, QID, X 3 days, # 30 tab(s), 0 Refill(s), Start Date: 08/28/16 18 :51:00 [employer] TECHNICIAN Start Date: 08/28/16 Stop Date: 09/09/16 Status: CompletedZofran ODT 4 mg oral tablet, disintegrating 1 tab(s), Oral, q4hr, PRN nausea/vomiting, X 5 days, # 30 tab(s), 0 Refill(s), Start Date: 08/18/15 14:15:00 [employer] TECHNICIAN Start Date: 08/18/15 Stop Date: 08/23/15 Status: CompletedZyrTEC 10 mg oral tablet 1 tab(s), Oral, Daily, # 30 tab(s), 11 Refill(s), Start Date: 11/14/15 13:45:00 CDT, Pharmacy: [facility] Start Date: 11/14/15 Stop Date: 04/26/16 Status: Completed Results Patient Viewable Results Most recent to oldest [Reference 1 2 Range]: AN - Fi O2 21 % % 22 % % (09/10/16 10:55 AM) (09/10/16 10:50 AM) Estimated Creatinine Clearance 154.96 mL/min (09/10/16 9:59 AM) Urine [Negative] Negative (09/10/16 10:09 AM) UA HCG, Interp. First morning urine specimen is preferred. If the result does not correlate with clinical presentation, then either immediate serum quantitative HCG test or repeat qualitative test in forty-eight hour s recommended. The test is intended as an aid in diagnosing early . *Unknown* (09/10/16 10:09 AM) Immunizations Given and Recorded Vaccine Date Status Refusal Reason tetanus/diphth/pertuss (Tdap) adult/adol 07/28/16 Given Not Given Vaccine Date Status Refusal Reason tetanus/diphth/pertuss (Tdap) adult/adol 04/27/16 Not Given Patient Refuses Procedures Procedure Date Related Diagnosis Body Site Esophagogastroduodenoscopy1 09/10/16 Tubal Ligation Post Partum2 04/27/16 Dilation and curettage of uterus 2013 Dilation and curettage of uterus 2000 1auto-populated from documented surgical [id number] from documented surgical case Social History No data available for this section Assessment and Plan No data available for this section
--- OUTSIDE RECORDS SUMMARY | 2016-11-03 00:06 | XMS REPORT | Summary of Care ---
:1990 Author Organization [facility] Address [address] [place] [address]- Care Team Providers Name Role Phone Physician, Primary Care Primary Care Physician Unavailable Encounter Date(s): 01/28/16 - 01/28/[address] [id number] Final: Unspecified sprain of right foot, initial encounter Final: Exposure to other specified factors, initial encounter Discharge Diagnosis: Moderate right ankle sprain Discharge Diagnosis: Right foot sprain Discharge Disposition: 01 Discharged to Home or Self Care Attending Physician: Darnell Cancino MD Admitting Physician: Darnell Cancino MD Vital Signs Most recent to oldest [Reference Range]: 1 Temperature Temporal Artery [36.0-38.0 DegC] 36.3 DegC (01/28/16 9:13 AM) Heart Rate Monitored [60-100 bpm] 98 bpm (01/28/16 9:13 AM) Respiratory Rate [12-20 br/min] 20 br/min (01/28/16 9:13 AM) SpO2 97 % (01/28/16 9:13 AM) Blood Pressure [90-130/60-90 mmHg] 102/62mmHg (01/28/16 9:13 AM) Most recent to oldest [Reference Range]: 1 Weight Estimated 104.54 kg (01/28/16 9:13 AM) Weight Dosing 104.54 kg1 (01/28/16 9:16 AM) 1Result Comment: This result was because the dosing weight was either not entered or it is>30 days old. This result is based off: Weight Estimated January 28, 2016 09:13:00 CDT by Suzan Reaves Problem List Condition Effective Dates Status Health [...] QID, 0 Refill(s), Start Date: 08/31/15 13:37:00 [employer] Start Date: 08/31/15 Stop Date: 10/26/15 Status: CompletedCarafate 1 g oral tablet 1 tab(s), Oral, QIDACHS, X 14 days, # 56 tab(s), 0 Refill(s), Start Date: 4:34:00 [employer] Start Date: 06/26/15 Stop Date: 07/10/15 Status: CompletedCarafate 1 g oral tablet 1 tab(s), Oral, QID, # 28 tab(s), 0 Refill(s), Start Date: 10/26/15 13:03:00 [employer] Start Date: 10/26/15 Stop Date: 11/14/15 Status: DiscontinuedCeleXA 10 mg oral tablet 2 tab(s), Oral, Daily, 0 Refill(s), Start Date: 08/31/15 13:36:00 [employer] Start Date: 08/31/15 Status: OrderedClassic oral tablet 1 tab(s), Oral, Daily, # 30 tab(s), 11 Refill(s), Start Date: 08/31/15 14:03:00 [employer]IGAR[employer]TE TE[employer], Pharmacy: [facility]97 Start Date: 08/31/15 Status: Orderedferrous sulfate 325 mg (65 mg elemental iron) oral tablet 1 tab(s), Oral, Daily, # 90 tab(s), 2 Refill(s), Start Date: 01/16/16 13:33:00 CDT, Pharmacy: [facility]97 Start Date: 01/16/16 Status: Orderedferrous sulfate 325 mg (65 mg elemental iron) oral tablet 1 tab(s), Oral, Daily, # 90 tab(s), 0 Refill(s), Start Date: 01/16/16 13:32:00 CDT Start Date: 01/16/16 Stop Date: 01/16/16 Status: DiscontinuedMacrobid 100 mg oral capsule 1 cap(s), Oral, BID, # 14 cap(s), 0 Refill(s), Start Date: 02/04/16 20:15:00 CDT , Pharmacy: [facility] 79 Start Date: 02/04/16 Stop Date: 02/06/16 Status: DiscontinuedMacrobid 100 mg oral capsule 1 cap(s), Oral, BID, # 14 cap(s), 0 Refill(s), Start Date: 11/26/15 15:08:00 CDT , Pharmacy: [facility] 797 Start Date: 11/26/15 Stop Date: 12/20/15 Status: Completedpantoprazole 40 mg oral delayed release tablet 1 tab(s), Oral, Daily, X 14 days, # 14 tab(s), 0 Refill(s), Start Date: 4:33:00 [employer] Start Date: 06/26/15 Stop Date: 07/10/15 Status: CompletedPercocet 5/325 oral tablet 2 tab(s), Oral, q6hr, PRN for pain, X 3 days, # 15 tab(s), 0 Refill(s), Start Date: 06/26/15 4:33:00 [employer] Start Date: 06/26/15 Stop Date: 06/29/15 Status: CompletedPercocet 5/325 oral tablet 1 or 2 tabs, Oral, q4hr, PRN pain moderate 4-7, Do not work or drive with this medication, # 12 tab(s), 0 Refill(s), Start Date: 08/18/15 0:20:00 [employer] Special Instructions: Do not work or drive with this medication Start Date: 08/18/15 Stop Date: 08/21/15 Status: CompletedpredniSONE 20 mg oral tablet See Instructions, 2 tab(s) Oral Daily for 5 days then 1 tab daily for 5 days then 0.5 tab daily for 5 days, # 20 tab(s), 0 Refill(s), Start Date: 12/20/15 14 :03:00 CDT, [facility] Special Instructions: 2 tab(s) Oral Daily for 5 days then 1 tab daily for 5 days then 0.5 tab daily for 5 days Start Date: 12/20/15 Stop Date: 01/28/16 Status: CompletedProAir HFA 90 mcg/inh inhalation aerosol 2 puff(s), Inhale, QID, PRN for wheezing, # 1 boxes, 2 Refill(s), Start Date: 10:48:39 CDT, Pharmacy: [place] [id number] Start Date: 01/16/16 Status: OrderedProAir HFA 90 mcg/inh inhalation aerosol 2 puff(s), Inhale, QID, PRN for wheezing, # 1 boxes, 2 Refill(s), Start Date: 13:59:00 [employer], Pharmacy: [place] [id number] Start Date: 10/17/15 Stop Date: 01/16/16 Status: Discontinuedpromethazine 25 mg oral tablet 1 tab(s), Oral, q4hr, PRN for nausea/vomiting, # 60 tab(s), 0 Refill(s), Start Date: 08/31/15 14:03:00 [employer], Pharmacy: [place] [id number] Start Date: 08/31/15 Stop Date: 11/14/15 Status: DiscontinuedSingulair 10 mg oral tablet 1 tab(s), Oral, qPM, # 30 tab(s), 5 Refill(s), Start Date: 12/20/15 14:03:00 CDT , Pharmacy: [place] [id number] Start Date: 12/20/15 Status: OrderedSymbicort 80 mcg-4.5 mcg/inh inhalation aerosol 2 puff(s), Inhale, BID, # 7 gm, 11 Refill(s), Start Date: 11/14/15 13:45:00 CDT , Pharmacy: [place] [id number] Start Date: 11/14/15 Status: OrderedZofran ODT 4 mg oral tablet, disintegrating 1 tab(s), Oral, q6hr, PRN nausea, X 3 days, # 10 tab(s), 0 Refill(s), Start Date : 06/26/15 4:33:00 [employer] Start Date: 06/26/15 Stop Date: 06/29/15 Status: CompletedZofran ODT 4 mg oral tablet, disintegrating 1 tab(s), Oral, As Indicated, PRN nausea/vomiting, # 10 tab(s), 0 Refill(s), Start Date: 08/18/15 0:19:00 [employer] Start Date: 08/18/15 Stop Date: 08/31/15 Status: DiscontinuedZofran ODT 4 mg oral tablet, disintegrating 1 tab(s), Oral, q4hr, PRN nausea/vomiting, X 5 days, # 30 tab(s), 0 Refill(s), Start Date: 08/18/15 14:15:00 [employer] Start Date: 08/18/15 Stop Date: 08/23/15 Status: CompletedZyrTEC 10 mg oral tablet 1 tab(s), Oral, Daily, # 30 tab(s), 11 Refill(s), Start Date: 11/14/15 13:45:00 CDT, Pharmacy: [id number] Start Date: 11/14/15 Status: Ordered [...]
--- OUTSIDE RECORDS SUMMARY | 2016-11-03 00:06 | XMS REPORT | Summary of Care ---
:1990 Author Organization [facility] Address [address] [place] [id number]- Care Team Providers Name Role Phone Alta Miller Primary Care Physician Encounter Date(s): 09/12/16 - 09/12/[address] [address]- [facility] Discharge Disposition: 01 Discharged to Home or Self Care Attending Physician: Jb Spencer MD Admitting Physician: Jb Spencer MD Vital Signs Most recent to oldest 1 2 3 [Reference Range]: Temperature Temporal Artery 36.7 DegC 36.6 DegC [36.0-38.0 DegC] (09/12/16 12:37 PM) (09/12/16 9:28 AM) Temperature Temporal Artery 36.7 DegC [36-38 DegC] (09/12/16 11:00 AM) Heart Rate Monitored [60-100 94 bpm bpm] (09/12/16 9:28 AM) Respiratory Rate [12-20 16 br/min 20 br/min 16 br/min br/min] (09/12/16 12:37 PM) (09/12/16 11:12 AM) (09/12/16 9:28 AM) SpO2 95 % (09/12/16 9:28 AM) Blood Pressure [90-130/60-90 123/89mmHg 104/59mmHg 104/71mmHg mmHg] (09/12/16 12:37 PM) (09/12/16 11:00 AM) (09/12/16 9:28 AM) Weight Estimated 110 kg (09/12/16 9:28 AM) Weight Dosing 110.00 kg1 (09/12/16 9:30 AM) 1Result Comment: This result was because the dosing weight was either not entered or it is>30 days old. This result is based off: Weight Estimated September 12, 2016 09:28:00 [employer] by Hilda Willard RN Problem List Condition Effective Dates Status Health [...] QID, 0 Refill(s), Start Date: 08/31/15 13:37:00 [employer] Start Date: 08/31/15 Stop Date: 10/26/15 Status: CompletedCarafate 1 g oral tablet 1 tab(s), Oral, QID, # 120 tab(s), 0 Refill(s), Start Date: 07/25/16 13:18:00 [employer], Pharmacy: [id number] Start Date: 07/25/16 Status: OrderedCarafate 1 g oral tablet 1 tab(s), Oral, QIDACHS, # 56 tab(s), 0 Refill(s), Start Date: 06/06/16 12:51: 00 CDT Start Date: 06/06/16 Stop Date: 06/12/16 Status: DiscontinuedCarafate 1 g oral tablet 1 tab(s), Oral, QIDACHS, X 14 days, # 56 tab(s), 0 Refill(s), Start Date: 4:34:00 [employer] Start Date: 06/26/15 Stop Date: 07/10/15 Status: CompletedCarafate 1 g oral tablet 1 tab(s), Oral, QID, # 28 tab(s), 0 Refill(s), Start Date: 10/26/15 13:03:00 [employer] Start Date: 10/26/15 Stop Date: 11/14/15 Status: DiscontinuedCeleXA 10 mg oral tablet 2 tab(s), Oral, Daily, 0 Refill(s), Start Date: 08/31/15 13:36:00 [employer] Start Date: 08/31/15 Stop Date: 07/14/16 Status: DiscontinuedCeleXA 20 mg oral tablet 1 tab(s), Oral, Daily, # 30 tab(s), 2 Refill(s), Start Date: 07/14/16 12:54:00 [employer], Pharmacy: [facility] [id number] Start Date: 07/14/16 Status: Orderedcetirizine 5 mg oral tablet 1 tab(s), Oral, Daily, # 10 tab(s), 0 Refill(s), Start Date: 09/01/16 15:51:00 [employer], Pharmacy: [facility] [id number] Start Date: 09/01/16 Stop Date: 09/12/16 Status: CompletedClassic oral tablet 1 tab(s), Oral, Daily, # 30 tab(s), 11 Refill(s), Start Date: 08/31/15 14:03:00 [employer], Pharmacy: [facility] [id number] Start Date: 08/31/15 Stop Date: 08/01/16 Status: Completeddicyclomine 20 mg oral tablet 1 tab(s), Oral, QID, PRN abdominal pain, # 40 tab(s), 0 Refill(s), Start Date: 08/06/16 0:16:00 [employer] Start Date: 08/06/16 Stop Date: 08/19/16 Status: CompletedDilaudid 2 mg oral tablet 1 tab(s), Oral, q8hr interval, PRN for pain, # 30 tab(s), 0 Refill(s), Start Date: 08/28/16 18:51:00 [employer] Start Date: 08/28/16 Stop Date: 09/09/16 Status: Completedferrous sulfate 325 mg (65 mg elemental iron) oral tablet 1 tab(s), Oral, Daily, # 90 tab(s), 2 Refill(s), Start Date: 01/16/16 13:33:00 CDT, Pharmacy: [facility] [id number] Start Date: 01/16/16 Stop Date: 04/28/16 Status: Discontinuedferrous sulfate 325 mg (65 mg elemental iron) oral tablet 1 tab(s), Oral, Daily, # 90 tab(s), 0 Refill(s), Start Date: 01/16/16 13:32:00 CDT Start Date: 01/16/16 Stop Date: 01/16/16 Status: DiscontinuedFlagyl 500 mg oral tablet 1 tab(s), Oral, q12hr, # 14 tab(s), 0 Refill(s), Start Date: 02/23/16 23:20:00 CDT, [facility] Start Date: 02/23/16 Stop Date: 03/12/16 Status: Discontinuedibuprofen 600 mg oral tablet 1 tab(s), Oral, q6hr, PRN pain mild 1-3, # 30 tab(s), 0 Refill(s), Start Date: 04/28/16 9:49:00 CDT, Pharmacy: [facility] Start Date: 04/28/16 Stop Date: 08/01/16 Status: CompletedMacrobid 100 mg oral capsule 1 cap(s), Oral, BID, # 14 cap(s), 0 Refill(s), Start Date: 02/04/16 20:15:00 CDT , Pharmacy: [facility] Start Date: 02/04/16 Stop Date: 02/06/16 Status: DiscontinuedMacrobid 100 mg oral capsule 1 cap(s), Oral, BID, # 14 cap(s), 0 Refill(s), Start Date: 11/26/15 15:08:00 CDT , Pharmacy: [facility] Start Date: 11/26/15 Stop Date: 12/20/15 Status: Completedmagnesium citrate 1.745 g/30 mL oral liquid 150 mL, Oral, ONETIME, # 300 mL, 0 Refill(s), Start Date: 08/01/16 18:28:00 [employer] Start Date: 08/01/16 Stop Date: 08/01/16 Status: CompletedMiraLax oral powder for reconstitution 17 gm=, Oral, Daily, dissolve in water before taking, X 31 days, # 527 gm, 0 Refill(s), Start Date: 08/01/16 18:28:00 [employer] Start Date: 08/01/16 Stop Date: 08/04/16 Status: Completedomeprazole 40 mg oral delayed release capsule 1 cap(s), Oral, Daily, # 30 cap(s), 0 Refill(s), Start Date: 07/25/16 13:18:00 [employer], Pharmacy: [facility]97 Start Date: 07/25/16 Stop Date: 09/12/16 Status: Completedomeprazole 40 mg oral delayed release capsule 1 cap(s), Oral, Daily, # 30 cap(s), 0 Refill(s), Start Date: 09/10/16 10:56:00 [employer], Pharmacy: [facility]97 Start Date: 09/10/16 Status: Orderedondansetron 4 mg oral tablet, disintegrating 1 tab(s), Oral, TID, PRN nausea/vomiting, Start Date: 06/06/16 10:52:00 CDT Start Date: 06/06/16 Stop Date: 08/01/16 Status: CompletedoxyCODONE-acetaminophen 5 mg-325 mg oral tablet 1 tab(s), Oral, TID, PRN pain severe 8-10, X 7 days, # 21 tab(s), 0 Refill(s), Start Date: 06/30/16 9:59:27 [employer], Pharmacy: [facility] Start Date: 06/30/16 Stop Date: 07/07/16 Status: CompletedoxyCODONE-acetaminophen 5 mg-325 mg oral tablet 1 tab(s), Oral, TID, PRN pain severe 8-10, X 7 days, # 21 tab(s), 0 Refill(s), Start Date: 06/23/16 15:23:20 CDT, Pharmacy: [facility] Start Date: 06/23/16 Stop Date: 06/30/16 Status: CompletedoxyCODONE-acetaminophen 5 mg-325 mg oral tablet 2 tab(s), Oral, TID, PRN for pain, Only for severe pain 8-10 not to exceed 4000 mg acetaminophen per day, X 14 days, # 84 tab(s), 0 Refill(s), Start Date: 07/18/16 11:01:00 [employer], other reason (Rx) Start Date: 07/18/16 Stop Date: 07/18/16 Status: CompletedoxyCODONE-acetaminophen 5 mg-325 mg oral tablet 1 tab(s), Oral, q6hr interval, PRN pain severe 8-10, 0 Refill(s), Start Date: 10:53:00 CDT Start Date: 06/06/16 Stop Date: 06/12/16 Status: DiscontinuedoxyCODONE-acetaminophen 5 mg-325 mg oral tablet 1 tab(s), Oral, q4hr, PRN for pain, # 10 tab(s), 0 Refill(s), Start Date: 12:59:00 CDT, Pharmacy: [facility] Start Date: 04/11/16 Stop Date: 04/26/16 Status: CompletedoxyCODONE-acetaminophen 5 mg-325 mg oral tablet 1 tab(s), Oral, TID, PRN for pain, Only for severe pain 8-10, X 14 days, # 42 tab(s), 0 Refill(s), Start Date: 07/10/16 9:02:23 [employer], Pharmacy: [facility] Start Date: 07/10/16 Stop Date: 07/18/16 Status: CompletedoxyCODONE-acetaminophen 5 mg-325 mg oral tablet 1 tab(s), Oral, q6hr interval, PRN pain severe 8-10, X 10 days, # 40 tab(s), 0 Refill(s), Start Date: 06/12/16 14:19:00 CDT, Pharmacy: [facility] Start Date: 06/12/16 Stop Date: 06/22/16 Status: CompletedoxyCODONE-acetaminophen 5 mg-325 mg oral tablet 1 tab(s), Oral, Daily, PRN for pain, Only for severe pain 8-10, X 7 days, # 7 tab(s), 0 Refill(s), Start Date: 07/07/16 8:39:00 [employer], Pharmacy: [facility] Start Date: 07/07/16 Stop Date: 07/10/16 Status: CompletedoxyCODONE-acetaminophen 5 mg-325 mg oral tablet 2 tab(s), Oral, TID, PRN for pain, Only for severe pain 8-10 not to exceed 4000 mg acetaminophen per day, X 7 days, # 42 tab(s), 0 Refill(s), Start Date: 07/18/16 11:44:08 [employer], Pharmacy: [place] [id number] Start Date: 07/18/16 Stop Date: 07/25/16 Status: CompletedoxyCODONE-acetaminophen 5mg-325mg oral tablet 2 tab(s), Oral, TID, PRN for pain, Only for severe pain 8-10 not to exceed 4000 mg acetaminophen per day, X 7 days, # 42 tab(s), 0 Refill(s), Start Date: 07/25/16 12:04:23 [employer], Pharmacy: [place] [facility] [id number] Start Date: 07/25/16 Stop Date: 08/01/16 Status: Completedpantoprazole 40 mg oral delayed release tablet 1 tab(s), Oral, Daily, X 14 days, # 14 tab(s), 0 Refill(s), Start Date: 4:33:00 [employer] Start Date: 06/26/15 Stop Date: 07/10/15 Status: Completedpantoprazole 40 mg oral delayed release tablet 1 tab(s), Oral, Daily, # 30 tab(s), 0 Refill(s), Start Date: 06/06/16 12:51:00 CDT Start Date: 06/06/16 Stop Date: 06/12/16 Status: DiscontinuedPercocet 5/325 oral tablet 1 tab(s), Oral, q6hr, PRN for pain, # 30 tab(s), 0 Refill(s), Start Date: 9:49:26 CDT, Pharmacy: [facility] [id number] Start Date: 04/28/16 Stop Date: 05/28/16 Status: CompletedPercocet 5/325 oral tablet 1 tab(s), Oral, q6hr, PRN for pain, # 10 tab(s), 0 Refill(s), Start Date: 8:35:41 CDT, Pharmacy: [place] [facility] [id number] Start Date: 04/18/16 Stop Date: 04/28/16 Status: DiscontinuedPercocet 5/325 oral tablet 1 tab(s), Oral, q4hr, PRN for pain, X 5 days, # 20 tab(s), 0 Refill(s), Start Date: 06/01/16 0:48:00 CDT Start Date: 06/01/16 Stop Date: 06/06/16 Status: CompletedPercocet 5/325 oral tablet 2 tab(s), Oral, q6hr, PRN for pain, X 3 days, # 15 tab(s), 0 Refill(s), Start Date: 06/26/15 4:33:00 [employer] Start Date: 06/26/15 Stop Date: 06/29/15 Status: CompletedPercocet 5/325 oral tablet 1 tab(s), Oral, q6hr interval, PRN for pain, # 28 tab(s), 0 Refill(s), Start Date: 09/09/16 11:45:52 [employer], Pharmacy: [id number] Start Date: 09/09/16 Stop Date: 09/16/16 Status: OrderedPercocet 5/325 oral tablet 1 or 2 tabs, Oral, q4hr, PRN pain moderate 4-7, Do not work or drive with this medication, # 12 tab(s), 0 Refill(s), Start Date: 08/18/15 0:20:00 [employer] Start Date: 08/18/15 Stop Date: 08/21/15 Status: CompletedPercocet 5/325 oral tablet 1 tab(s), Oral, q6hr, PRN for pain, # 10 tab(s), 0 Refill(s), Start Date: 22:53:00 CDT, Pharmacy: [facility] Start Date: 04/17/16 Stop Date: 04/18/16 Status: DiscontinuedPercocet 5/325 oral tablet 1 tab(s), Oral, TID, PRN for pain, # 30 tab(s), 0 Refill(s), Start Date: 15:49:00 [employer] Start Date: 09/01/16 Stop Date: 09/09/16 Status: CompletedPhenergan 25 mg oral tablet 1 tab(s), Oral, q4hr, PRN for nausea/vomiting, X 5 days, # 30 tab(s), 0 Refill(s ), Start Date: 08/24/16 12:32:00 [employer] Start Date: 08/24/16 Stop Date: 08/29/16 Status: CompletedpredniSONE 20 mg oral tablet See Instructions, 2 tab(s) Oral Daily for 5 days then 1 tab daily for 5 days then 0.5 tab daily for 5 days, # 20 tab(s), 0 Refill(s), Start Date: 12/20/15 14 :03:00 CDT, Pharmacy: [facility] 79 Start Date: 12/20/15 Stop Date: 01/28/16 Status: CompletedProAir HFA 90 mcg/inh inhalation aerosol 2 puff(s), Inhale, QID, PRN for wheezing, # 1 boxes, 2 Refill(s), Start Date: 10:48:39 CDT, Pharmacy: [facility] 79 Start Date: 01/16/16 Status: OrderedProAir HFA 90 mcg/inh inhalation aerosol 2 puff(s), Inhale, QID, PRN for wheezing, # 1 boxes, 2 Refill(s), Start Date: 13:59:00 [employer], Pharmacy: [facility] 79 Start Date: 10/17/15 Stop Date: 01/16/16 Status: Discontinuedpromethazine 25 mg oral tablet 1 tab(s), Oral, q6hr interval, PRN as needed for nausea/vomiting, X 3 days, # 12 tab(s), 0 Refill(s), Start Date: 06/06/16 12:52:00 CDT Start Date: 06/06/16 Stop Date: 06/09/16 Status: Completedpromethazine 25 mg oral tablet 1 tab(s), Oral, q6hr, Dispense, # 3 tab(s), 0 Refill(s), Start Date: 08/02/16 21 :58:00 [employer] Start Date: 08/02/16 Stop Date: 08/19/16 Status: Completedpromethazine 25 mg oral tablet 1 tab(s), Oral, q6hr, # 12 tab(s), 0 Refill(s), Start Date: 08/02/16 21:56:00 [employer] Start Date: 08/02/16 Stop Date: 08/19/16 Status: Completedpromethazine 25 mg oral tablet 1 tab(s), Oral, q4hr, PRN for nausea/vomiting, # 60 tab(s), 0 Refill(s), Start Date: 08/31/15 14:03:00 [employer], Pharmacy: [facility]97 Start Date: 08/31/15 Stop Date: 11/14/15 Status: DiscontinuedSingulair 10 mg oral tablet 1 tab(s), Oral, qPM, # 30 tab(s), 5 Refill(s), Start Date: 12/20/15 14:03:00 CDT , Pharmacy: [facility] Start Date: 12/20/15 Stop Date: 04/26/16 Status: CompletedSymbicort 80 mcg-4.5 mcg/inh inhalation aerosol 2 puff(s), Inhale, BID, # 7 gm, 11 Refill(s), Start Date: 11/14/15 13:45:00 CDT , Pharmacy: [facility] Start Date: 11/14/15 Stop Date: 04/26/16 Status: CompletedtraMADol 50 mg oral tablet 1 tab(s), Oral, q4hr interval, PRN as needed for pain, X 3 days, # 18 tab(s), 0 Refill(s), Start Date: 08/24/16 12:32:00 [employer] Start Date: 08/24/16 Stop Date: 08/27/16 Status: CompletedtraMADol 50 mg oral tablet 1 tab(s), Oral, q4hr, PRN for pain, # 10 tab(s), 0 Refill(s), Start Date: 21:27:00 [employer] Start Date: 08/09/16 Stop Date: 08/19/16 Status: CompletedtraMADol 50 mg oral tablet 1 tab(s), Oral, q4hr, PRN as needed for pain, Dispense, # 4 tab(s), 0 Refill(s) , Start Date: 08/02/16 21:58:00 [employer] Start Date: 08/02/16 Stop Date: 08/19/16 Status: CompletedtraMADol 50 mg oral tablet 1 tab(s), Oral, q4hr interval, PRN as needed for pain, # 18 tab(s), 0 Refill(s) , Start Date: 08/02/16 21:56:00 [employer] Start Date: 08/02/16 Stop Date: 08/19/16 Status: CompletedUltram 50 mg oral tablet 1 or2 tab(s), Oral, q6hr interval, PRN for pain, Not work or drive with this medication, # 20 tab(s), 0 Refill(s), Start Date: 08/19/16 18:37:00 [employer] Start Date: 08/19/16 Stop Date: 09/01/16 Status: CompletedZofran 4 mg oral tablet 1 tab(s), Oral, TID, PRN nausea/vomiting, # 10 tab(s), 0 Refill(s), Start Date: 08/09/16 21:28:00 [employer] Start Date: 08/09/16 Stop Date: 08/19/16 Status: [...] 0 Refill(s), Start Date : 06/26/15 4:33:00 [employer] Start Date: 06/26/15 Stop Date: 06/29/15 Status: CompletedZofran ODT 4 mg oral tablet, disintegrating 1 tab(s), Oral, TID, # 9 tab(s), 0 Refill(s), Start Date: 09/09/16 11:45:51 [employer] , Pharmacy: [facility] Start Date: 09/09/16 Stop Date: 09/12/16 Status: CompletedZofran ODT 4 mg oral tablet, disintegrating 1 tab(s), Oral, As Indicated, PRN nausea/vomiting, # 10 tab(s), 0 Refill(s), Start Date: 08/18/15 0:19:00 [employer] Start Date: 08/18/15 Stop Date: 08/31/15 Status: DiscontinuedZofran ODT 4 mg oral tablet, disintegrating 1 tab(s), Oral, QID, X 3 days, # 30 tab(s), 0 Refill(s), Start Date: 08/28/16 18 :51:00 [employer] Start Date: 08/28/16 Stop Date: 09/09/16 Status: CompletedZofran ODT 4 mg oral tablet, disintegrating 1 tab(s), Oral, q4hr, PRN nausea/vomiting, X 5 days, # 30 tab(s), 0 Refill(s), Start Date: 08/18/15 14:15:00 [employer] Start Date: 08/18/15 Stop Date: 08/23/15 Status: CompletedZofran ODT 4 mg oral tablet, disintegrating 1 tab(s), Oral, TID, PRN nausea/vomiting, # 10 tab(s), 0 Refill(s), Start Date: 09/12/16 12:24:00 [employer] Start Date: 09/12/16 Status: OrderedZyrTEC 10 mg oral tablet 1 tab(s), Oral, Daily, # 30 tab(s), 11 Refill(s), Start Date: 11/14/15 13:45:00 CDT, Pharmacy: [facility] Start Date: 11/14/15 Stop Date: 04/26/16 Status: Completed Results Patient Viewable Results Most recent to oldest [Reference 1 2 Range]: WBC [4.8-10.8 thou/mm3] 4.8 thou/mm3 (09/12/16 10:25 AM) RBC [4.20-5.40 Mil/mm3] 4.80 Mil/mm3 (09/12/16 10:25 AM) Hgb [12.0-16.0 g/dL] 14.4 g/dL (09/12/16 10:25 AM) Hct [37.0-47.0 %] 43.6 % (09/12/16 10:25 AM) MCV [80.0-94.0 fL] 90.8 fL (09/12/16 10:25 AM) MCH [25.0-38.0 pg/cell] 30.0 pg/cell (09/12/16 10:25 AM) MCHC [31.0-37.0 g/dL] 33.0 g/dL (09/12/16 10:25 AM) RDW [1.0-48.0 fL] 41.2 fL (09/12/16 10:25 AM) Platelet [130-400 thou/mm3] 314 thou/mm3 (09/12/16 10:25 AM) Neutrophils % Auto [50.0-75.0 %] 65.5 % (09/12/16:25 AM) Immature Granulocyte Auto [0.1-2.0 0.2 % %] (09/12/16 10:25 AM) Lymphocytes % Auto [15.0-41.0 %] 25.2 % (09/12/16 10:25 AM) Monocytes % Auto [2.0-10.0 %] 6.4 % (09/12/16:25 AM) Eosinophils % Auto [0.0-6.0 %] 2.5 % (09/12/16:25 AM) Basophil % Auto [0.0-1.0 %] 0.2 % (09/12/16 10:25 AM) Neutrophils Absolute [1.5-5.9 3.2 thou/mm3 thou/mm3] (09/12/16 10:25 AM) Immature Gran Absolute [0.01-0.03 0.01 thou/mm3 thou/mm3] (09/12/16 10:25 AM) Lymphocytes Absolute [1.5-4.0 1.2 thou/mm3 thou/mm3] *LOW* (09/12/16 10:25 AM) Monocytes Absolute [0.0-0.9 0.3 thou/mm3 thou/mm3] (09/12/16 10:25 AM) Eosinophil Absolute [0.0-0.7 0.1 thou/mm3 thou/mm3] (09/12/16 10:25 AM) Basophil Absolute [0.0-0.2 0.0 thou/mm3 thou/mm3] (09/12/16 10:25 AM) Sodium Lvl [135-144 mEq/L] 138 mEq/L (09/12/16 10:25 AM) Potassium Lvl [3.3-4.8 mEq/L] 4.3 mEq/L (09/12/16 10:25 AM) Chloride Lvl [98-107 mEq/L] 98 mEq/L (09/12/16 10:25 AM) Bicarbonate Lvl [22-30 mmol/L] 29 mmol/L (09/12/16 10:25 AM) Anion Gap [10.0-20.0] 15.3 (09/12/16 10:25 AM) Glucose Lvl [70-108 mg/dL] 92 mg/dL (09/12/16 10:25 AM) BUN [7-21 mg/dL] 10 mg/dL (09/12/16 10:25 AM) Creatinine Lvl [0.50-1.20 mg/dL] 0.65 mg/dL (09/12/16 10:25 AM) BUN/Creat Ratio 15.4 *NA* (09/12/16 10:25 AM) eGFR AA [>=60] >60 (09/12/16 10:25 AM) eGFR SIVA [>=60] >60 (09/12/16 10:25 AM) Calcium Lvl [8.6-10.2 mg/dL] 9.3 mg/dL (09/12/16 10:25 AM) Total Protein [6.4-8.3 g/dL] 7.6 g/dL (09/12/16 10:25 AM) Albumin Lvl [3.5-5.2 g/dL] 4.5 g/dL (09/12/16 10:25 AM) Globulin 3.1 *NA* (09/12/16 10:25 AM) A/G Ratio [0.9-1.8] 1.5 (09/12/16 10:25 AM) Bilirubin Total [0.1-1.0 mg/dL] 0.8 mg/dL (09/12/16 10:25 AM) Alkaline Phosphatase [39-129 98 unit/L unit/L] (09/12/16 10:25 AM) AST [0-39 unit/L] 19 unit/L (09/12/16 10:25 AM) ALT [0-40 unit/L] 13 unit/L (09/12/16 10:25 AM) Lipase Lvl [13-60 unit/L] 31 unit/L (09/12/16 10:25 AM) Estimated Creatinine Clearance 167.63 mL/min 155.66 mL/min (09/12/16 11:02 AM) (09/12/16 9:30 AM) UA Color Yellow *NA* (09/12/16 10:28 AM) Urine Clarity Clear *NA* (09/12/16 10:28 AM) Specific [place] [1.000-1.060] 1.009 (09/12/16 10:28 AM) Urine pH [5-8] 7 (09/12/16 10:28 AM) Ketones Negative (09/12/16 10:28 AM) Bilirubin [Negative] Negative (09/12/16 10:28 AM) Urine Protein [Negative] Negative (09/12/16 10:28 AM) Glucose [Negative] Negative (09/12/16 10:28 AM) Urine HGB [Negative] Negative (09/12/16 10:28 AM) Urobilinogen <2.0 *NA* (09/12/16 10:28 AM) Nitrite [Negative] Negative (09/12/16 10:28 AM) Leuk Esterase [Negative] Negative (09/12/16 10:28 AM) UA Ascorbic Acid [Negative] Negative (09/12/16 10:28 AM) Urine WBC [0-5] 0-5 (09/12/16 10:28 AM) Urine RBC [0-2] None Seen (09/12/16 10:28 AM) Squamous Epi [0-5] 0-5 (09/12/16 10:28 AM) Mucus Trace (09/12/16 10:28 AM) Urine [Negative] Negative (09/12/16 10:28 AM) UA HCG, Interp. First morning urine specimen is preferred. If the result does not correlate with clinical presentation, then either immediate serum quantitative HCG test or repeat qualitative test in forty-eight hour s recommended. The test is intended as an aid in diagnosing early . *Unknown* (09/12/16 10:28 AM) Immunizations Given and Recorded Vaccine Date Status Refusal Reason tetanus/diphth/pertuss (Tdap) adult/adol 07/28/16 Given Not Given Vaccine Date Status Refusal Reason tetanus/diphth/pertuss (Tdap) adult/adol 04/27/16 Not Given Patient Refuses Procedures Procedure Date Related Diagnosis Body Site Esophagogastroduodenoscopy1 09/10/16 Tubal Ligation Post Partum2 04/27/16 Dilation and curettage of uterus 2013 Dilation and curettage of uterus 2000 1auto-populated from documented surgical [id number] from documented surgical case Social History No data available for this section Assessment and Plan No data available for this section
--- OUTSIDE RECORDS SUMMARY | 2016-11-03 00:07 | XMS REPORT | Summary of Care ---
:1990 Author Organization [facility] Address [address] [place] [id number]- Care Team Providers Name Role Phone Alta Miller Primary Care Physician Encounter Date(s): 09/21/16 - 09/21/[address] [address]- [facility] Discharge Disposition: Left Against Medical Advice Attending Physician: Riaz Aceves MD Admitting Physician: Riaz Aceves MD Vital Signs Most recent to oldest [Reference Range]: 1 Temperature Temporal Artery [36.0-38.0 DegC] 36.9 DegC (09/21/16 6:26 AM) Heart Rate Monitored [60-100 bpm] 88 bpm (09/21/16 6:26 AM) Respiratory Rate [12-20 br/min] 19 br/min (09/21/16 6:26 AM) SpO2 96 % (09/21/16 6:26 AM) Blood Pressure [90-130/60-90 mmHg] 106/62mmHg (09/21/16 6:26 AM) Weight Estimated 110 kg (09/21/16 6:26 AM) Weight Dosing 110.00 kg1 (09/21/16 6:34 AM) 1Result Comment: This result was because the dosing weight was either not entered or it is>30 days old. This result is based off: Weight Estimated September 21, 2016 06:26:00 [employer]OADCAST FIELD SUPERVISOR by Julia Giron RN Problem List Condition Effective Dates Status Health Status Informant Acute gastritis(Confirmed) Active Adolescent (Confirmed) Active Asthma(Confirmed) Active Group B streptococcus(Confirmed) Active Maternal tobacco use(Confirmed) Active Pancreatitis(Confirmed) Active (Confirmed) < 2010 Resolved (Confirmed) < 2011 Resolved (Confirmed) 05/25/12 - 02/22/13 Resolved (Confirmed) 11/14/14 - 03/29/15 Resolved (Confirmed) 07/21/15 - 04/26/16 Resolved Allergies, Adverse Reactions, Alerts Substance Reaction Severity Status codeine Vomit Mild Active Haldol Rigors Moderate Active morphine Rash Moderate Active Reglan muscle spasms Moderate Active Vicodin Rash Moderate Active Medications albuterol CFC free 90 mcg/inh inhalation aerosol puff(s), Inhale, QID, 0 Refill(s), Start Date: 08/31/15 13:37:00 [employer]PER[employer]OR Start Date: 08/31/15 Stop Date: 10/26/15 Status: CompletedCarafate 1 g oral tablet 1 tab(s), Oral, QID, # 120 tab(s), 0 Refill(s), Start Date: 07/25/16 13:18:00 [employer]CAST FIELD SUPERVISOR, Pharmacy: [facility] Start Date: 07/25/16 Status: OrderedCarafate 1 g oral tablet 1 tab(s), Oral, QIDACHS, # 56 tab(s), 0 Refill(s), Start Date: 06/06/16 12:51: 00 CDT Start Date: 06/06/16 Stop Date: 06/12/16 Status: DiscontinuedCarafate 1 g oral tablet 1 tab(s), Oral, QIDACHS, X 14 days, # 56 tab(s), 0 Refill(s), Start Date: 4:34:00 [employer]CAST FIELD SUPERVISOR Start Date: 06/26/15 Stop Date: 07/10/15 Status: CompletedCarafate 1 g oral tablet 1 tab(s), Oral, QID, # 28 tab(s), 0 Refill(s), Start Date: 10/26/15 13:03:00 [employer]CAST FI[employer] SUPERVISOR Start Date: 10/26/15 Stop Date: 11/14/15 Status: DiscontinuedCeleXA 10 mg oral tablet 2 tab(s), Oral, Daily, 0 Refill(s), Start Date: 08/31/15 13:36:00 [employer] FIELD SUPERVISOR Start Date: 08/31/15 Stop Date: 07/14/16 Status: DiscontinuedCeleXA 20 mg oral tablet 1 tab(s), Oral, Daily, # 30 tab(s), 2 Refill(s), Start Date: 07/14/16 12:54:00 [employer]CAST FIELD SUPERVISOR, Pharmacy: [place] [id number] Start Date: 07/14/16 Status: Orderedcetirizine 5 mg oral tablet 1 tab(s), Oral, Daily, # 10 tab(s), 0 Refill(s), Start Date: 09/01/16 15:51:00 BROADCAST FIELD SUPERVISOR, Pharmacy: [place] [id number] Start Date: 09/01/16 Stop Date: 09/12/16 Status: CompletedClassic oral tablet 1 tab(s), Oral, Daily, # 30 tab(s), 11 Refill(s), Start Date: 08/31/15 14:03:00 [employer]OADCAST FIELD SUPERVISOR, Pharmacy: [place] [id number] Start Date: 08/31/15 Stop Date: 08/01/16 Status: Completeddicyclomine 20 mg oral tablet 1 tab(s), Oral, QID, PRN abdominal pain, # 40 tab(s), 0 Refill(s), Start Date: 08/06/16 0:16:00 [employer] FI[employer] SUPER[employer]OR Start Date: 08/06/16 Stop Date: 08/19/16 Status: CompletedDilaudid 2 mg oral tablet 1 tab(s), Oral, q8hr interval, PRN for pain, # 30 tab(s), 0 Refill(s), Start Date: 08/28/16 18:51:00 [employer]CAST FIELD SUPERVISOR Start Date: 08/28/16 Stop Date: 09/09/16 Status: Completedferrous sulfate 325 mg (65 mg elemental iron) oral tablet 1 tab(s), Oral, Daily, # 90 tab(s), 2 Refill(s), Start Date: 01/16/16 13:33:00 CDT, Pharmacy: [place] [id number] Start Date: 01/16/16 Stop Date: 04/28/16 Status: Discontinuedferrous sulfate 325 mg (65 mg elemental iron) oral tablet 1 tab(s), Oral, Daily, # 90 tab(s), 0 Refill(s), Start Date: 01/16/16 13:32:00 CDT Start Date: 01/16/16 Stop Date: 01/16/16 Status: DiscontinuedFlagyl 500 mg oral tablet 1 tab(s), Oral, q12hr, # 14 tab(s), 0 Refill(s), Start Date: 02/23/16 23:20:00 CDT, Pharmacy: [facility] Start Date: 02/23/16 Stop Date: 03/12/16 Status: Discontinuedibuprofen 600 mg oral tablet 1 tab(s), Oral, q6hr, PRN pain mild 1-3, # 30 tab(s), 0 Refill(s), Start Date: 04/28/16 9:49:00 CDT, Pharmacy: [place] [id number] Start Date: 04/28/16 Stop Date: 08/01/16 Status: CompletedMacrobid 100 mg oral capsule 1 cap(s), Oral, BID, # 14 cap(s), 0 Refill(s), Start Date: 02/04/16 20:15:00 CDT , Pharmacy: [place] [id number] Start Date: 02/04/16 Stop Date: 02/06/16 Status: DiscontinuedMacrobid 100 mg oral capsule 1 cap(s), Oral, BID, # 14 cap(s), 0 Refill(s), Start Date: 11/26/15 15:08:00 CDT , Pharmacy: [place] [id number] Start Date: 11/26/15 Stop Date: 12/20/15 Status: Completedmagnesium citrate 1.745 g/30 mL oral liquid 150 mL, Oral, ONETIME, # 300 mL, 0 Refill(s), Start Date: 08/01/16 18:28:00 [employer]CAST FIELD SUPERVISOR Start Date: 08/01/16 Stop Date: 08/01/16 Status: CompletedMiraLax oral powder for reconstitution 17 gm=, Oral, Daily, dissolve in water before taking, X 31 days, # 527 gm, 0 Refill(s), Start Date: 08/01/16 18:28:00 [employer]CAST FIELD SUPERVISOR Start Date: 08/01/16 Stop Date: 08/04/16 Status: Completedomeprazole 40 mg oral delayed release capsule 1 cap(s), Oral, Daily, # 30 cap(s), 0 Refill(s), Start Date: 07/25/16 13:18:00 BROADCAST FIELD SUPERVISOR, Pharmacy: [place] [id number] Start Date: 07/25/16 Stop Date: 09/12/16 Status: Completedomeprazole 40 mg oral delayed release capsule 1 cap(s), Oral, Daily, # 30 cap(s), 0 Refill(s), Start Date: 09/10/16 10:56:00 BROADCAST FIELD SUPERVISOR, Pharmacy: [facility] Start Date: 09/10/16 Status: Orderedondansetron 4 mg oral tablet, disintegrating 1 tab(s), Oral, TID, PRN nausea/vomiting, Start Date: 06/06/16 10:52:00 CDT Start Date: 06/06/16 Stop Date: 08/01/16 Status: CompletedoxyCODONE-acetaminophen 5 mg-325 mg oral tablet 1 tab(s), Oral, TID, PRN pain severe 8-10, X 7 days, # 21 tab(s), 0 Refill(s), Start Date: 06/30/16 9:59:27 BROADCAST FIELD SUPERVISOR, Pharmacy: [id number] Start Date: 06/30/16 Stop Date: 07/07/16 Status: CompletedoxyCODONE-acetaminophen 5 mg-325 mg oral tablet 1 tab(s), Oral, TID, PRN pain severe 8-10, X 7 days, # 21 tab(s), 0 Refill(s), Start Date: 06/23/16 15:23:20 CDT, Pharmacy: [facility] Start Date: 06/23/16 Stop Date: 06/30/16 Status: CompletedoxyCODONE-acetaminophen 5 mg-325 mg oral tablet 2 tab(s), Oral, TID, PRN for pain, Only for severe pain 8-10 not to exceed 4000 mg acetaminophen per day, X 14 days, # 84 tab(s), 0 Refill(s), Start Date: 07/18/16 11:01:00 BROADCAST FIELD SUPERVISOR, other reason (Rx) Start Date: 07/18/16 Stop Date: 07/18/16 Status: CompletedoxyCODONE-acetaminophen 5 mg-325 mg oral tablet 1 tab(s), Oral, q6hr interval, PRN pain severe 8-10, 0 Refill(s), Start Date: 10:53:00 CDT Start Date: 06/06/16 Stop Date: 06/12/16 Status: DiscontinuedoxyCODONE-acetaminophen 5 mg-325 mg oral tablet 1 tab(s), Oral, q4hr, PRN for pain, # 10 tab(s), 0 Refill(s), Start Date: 12:59:00 CDT, Pharmacy: [facility] Start Date: 04/11/16 Stop Date: 04/26/16 Status: CompletedoxyCODONE-acetaminophen 5 mg-325 mg oral tablet 1 tab(s), Oral, TID, PRN for pain, Only for severe pain 8-10, X 14 days, # 42 tab(s), 0 Refill(s), Start Date: 07/10/16 9:02:23 BROADCAST FIELD SUPERVISOR, Pharmacy: [place] [id number] Start Date: 07/10/16 Stop Date: 07/18/16 Status: CompletedoxyCODONE-acetaminophen 5 mg-325 mg oral tablet 1 tab(s), Oral, q6hr interval, PRN pain severe 8-10, X 10 days, # 40 tab(s), 0 Refill(s), Start Date: 06/12/16 14:19:00 CDT, Pharmacy: [place] [id number] Start Date: 06/12/16 Stop Date: 06/22/16 Status: CompletedoxyCODONE-acetaminophen 5 mg-325 mg oral tablet 1 tab(s), Oral, Daily, PRN for pain, Only for severe pain 8-10, X 7 days, # 7 tab(s), 0 Refill(s), Start Date: 07/07/16 8:39:00 BROADCAST FIELD SUPERVISOR, Pharmacy: [place] [id number] Start Date: 07/07/16 Stop Date: 07/10/16 Status: CompletedoxyCODONE-acetaminophen 5 mg-325 mg oral tablet 2 tab(s), Oral, TID, PRN for pain, Only for severe pain 8-10 not to exceed 4000 mg acetaminophen per day, X 7 days, # 42 tab(s), 0 Refill(s), Start Date: 07/18/16 11:44:08 BROADCAST FIELD SUPERVISOR, Pharmacy: [place] [id number] Start Date: 07/18/16 Stop Date: 07/25/16 Status: CompletedoxyCODONE-acetaminophen 5mg-325mg oral tablet 2 tab(s), Oral, TID, PRN for pain, Only for severe pain 8-10 not to exceed 4000 mg acetaminophen per day, X 7 days, # 42 tab(s), 0 Refill(s), Start Date: 07/25/16 12:04:23 BROADCAST FIELD SUPERVISOR, Pharmacy: [facility] Start Date: 07/25/16 Stop Date: 08/01/16 Status: Completedpantoprazole 40 mg oral delayed release tablet 1 tab(s), Oral, Daily, X 14 days, # 14 tab(s), 0 Refill(s), Start Date: 4:33:00 [employer]CAST FIELD SUPERVISOR Start Date: 06/26/15 Stop Date: 07/10/15 Status: Completedpantoprazole 40 mg oral delayed release tablet 1 tab(s), Oral, Daily, # 30 tab(s), 0 Refill(s), Start Date: 06/06/16 12:51:00 CDT Start Date: 06/06/16 Stop Date: 06/12/16 Status: DiscontinuedPercocet 5/325 oral tablet 1 tab(s), Oral, TID, PRN for pain, # 21 tab(s), 0 Refill(s), Start Date: 8:47:54 BRO[employer]CAST FIELD SUPERVISOR, Pharmacy: [place] [id number] Start Date: 09/16/16 Stop Date: 09/23/16 Status: OrderedPercocet 5/325 oral tablet 1 tab(s), Oral, q6hr, PRN for pain, # 30 tab(s), 0 Refill(s), Start Date: 9:49:26 CDT, Pharmacy: [facility] Start Date: 04/28/16 Stop Date: 05/28/16 Status: CompletedPercocet 5/325 oral tablet 1 tab(s), Oral, q6hr, PRN for pain, # 10 tab(s), 0 Refill(s), Start Date: 8:35:41 CDT, Pharmacy: [facility] Start Date: 04/18/16 Stop Date: 04/28/16 Status: DiscontinuedPercocet 5/325 oral tablet 1 tab(s), Oral, q4hr, PRN for pain, X 5 days, # 20 tab(s), 0 Refill(s), Start Date: 06/01/16 0:48:00 CDT Start Date: 06/01/16 Stop Date: 06/06/16 Status: CompletedPercocet 5/325 oral tablet 2 tab(s), Oral, q6hr, PRN for pain, X 3 days, # 15 tab(s), 0 Refill(s), Start Date: 06/26/15 4:33:00 [employer] FI[employer] SUPERVISOR Start Date: 06/26/15 Stop Date: 06/29/15 Status: CompletedPercocet 5/325 oral tablet 1 tab(s), Oral, q6hr interval, PRN for pain, X 7 days, # 28 tab(s), 0 Refill(s) , Start Date: 09/09/16 11:45:52 BROADCAST FIELD SUPERVISOR, Pharmacy: [facility] Start Date: 09/09/16 Stop Date: 09/16/16 Status: CompletedPercocet 5/325 oral tablet 1 or 2 tabs, Oral, q4hr, PRN pain moderate 4-7, Do not work or drive with this medication, # 12 tab(s), 0 Refill(s), Start Date: 08/18/15 0:20:00 [employer] FI[employer] SUPERVISOR Start Date: 08/18/15 Stop Date: 08/21/15 Status: CompletedPercocet 5/325 oral tablet 1 tab(s), Oral, q6hr, PRN for pain, # 10 tab(s), 0 Refill(s), Start Date: 22:53:00 CDT, Pharmacy: [facility] Start Date: 04/17/16 Stop Date: 04/18/16 Status: DiscontinuedPercocet 5/325 oral tablet 1 tab(s), Oral, TID, PRN for pain, # 30 tab(s), 0 Refill(s), Start Date: 15:49:00 [employer] FI[employer] SUPERVISOR Start Date: 09/01/16 Stop Date: 09/09/16 Status: CompletedPhenergan 25 mg oral tablet 1 tab(s), Oral, q4hr, PRN for nausea/vomiting, X 5 days, # 30 tab(s), 0 Refill(s ), Start Date: 08/24/16 12:32:00 [employer] SUPERVISOR Start Date: 1/1/17 Stop Date: 08/29/16 Status: CompletedpredniSONE 20 mg oral tablet See Instructions, 2 tab(s) Oral Daily for 5 days then 1 tab daily for 5 days then 0.5 tab daily for 5 days, # 20 tab(s), 0 Refill(s), Start Date: 12/20/15 14 :03:00 CDT, Pharmacy: [facility] Start Date: 12/20/15 Stop Date: 01/28/16 Status: CompletedProAir HFA 90 mcg/inh inhalation aerosol 2 puff(s), Inhale, QID, PRN for wheezing, # 1 boxes, 2 Refill(s), Start Date: 10:48:39 CDT, Pharmacy: [facility] Start Date: 01/16/16 Status: OrderedProAir HFA 90 mcg/inh inhalation aerosol 2 puff(s), Inhale, QID, PRN for wheezing, # 1 boxes, 2 Refill(s), Start Date: 13:59:00 [employer] FIELD SUPERVISOR, Pharmacy: [facility] Start Date: 10/17/15 Stop Date: 01/16/16 Status: Discontinuedpromethazine 25 mg oral tablet 1 tab(s), Oral, q6hr interval, PRN as needed for nausea/vomiting, X 3 days, # 12 tab(s), 0 Refill(s), Start Date: 06/06/16 12:52:00 CDT Start Date: 06/06/16 Stop Date: 06/09/16 Status: Completedpromethazine 25 mg oral tablet 1 tab(s), Oral, q6hr, Dispense, # 3 tab(s), 0 Refill(s), Start Date: 08/02/16 21 :58:00 [employer] FI[employer] SUPERVISOR Start Date: 08/02/16 Stop Date: 08/19/16 Status: Completedpromethazine 25 mg oral tablet 1 tab(s), Oral, q6hr, # 12 tab(s), 0 Refill(s), Start Date: 08/02/16 21:56:00 [employer] FI[employer] SUPERVISOR Start Date: 08/02/16 Stop Date: 08/19/16 Status: Completedpromethazine 25 mg oral tablet 1 tab(s), Oral, q4hr, PRN for nausea/vomiting, # 60 tab(s), 0 Refill(s), Start Date: 08/31/15 14:03:00 BRO[employer]CAST FIELD SUPERVISOR, Pharmacy: [facility] Start Date: 08/31/15 Stop Date: 11/14/15 Status: DiscontinuedSingulair 10 mg oral tablet 1 tab(s), Oral, qPM, # 30 tab(s), 5 Refill(s), Start Date: 12/20/15 14:03:00 CDT , Pharmacy: [facility] Start Date: 12/20/15 Stop Date: 04/26/16 Status: CompletedSymbicort 80 mcg-4.5 mcg/inh inhalation aerosol 2 puff(s), Inhale, BID, # 7 gm, 11 Refill(s), Start Date: 11/14/15 13:45:00 CDT , Pharmacy: [facility] Start Date: 11/14/15 Stop Date: 04/26/16 Status: CompletedtraMADol 50 mg oral tablet 1 tab(s), Oral, q4hr interval, PRN as needed for pain, X 3 days, # 18 tab(s), 0 Refill(s), Start Date: 08/24/16 12:32:00 [employer] FI[employer] SUPERVISOR Start Date: 08/24/16 Stop Date: 08/27/16 Status: CompletedtraMADol 50 mg oral tablet 1 tab(s), Oral, q4hr, PRN for pain, # 10 tab(s), 0 Refill(s), Start Date: 21:27:00 [employer] FI[employer] SUPERVISOR Start Date: 08/09/16 Stop Date: 08/19/16 Status: CompletedtraMADol 50 mg oral tablet 1 tab(s), Oral, q4hr, PRN as needed for pain, Dispense, # 4 tab(s), 0 Refill(s) , Start Date: 08/02/16 21:58:00 BRO[employer] FIELD SUPERVISOR Start Date: 08/02/16 Stop Date: 08/19/16 Status: CompletedtraMADol 50 mg oral tablet 1 tab(s), Oral, q4hr interval, PRN as needed for pain, # 18 tab(s), 0 Refill(s) , Start Date: 08/02/16 21:56:00 [employer] FI[employer] SUPERVISOR Start Date: 08/02/16 Stop Date: 08/19/16 Status: CompletedUltram 50 mg oral tablet 1 or2 tab(s), Oral, q6hr interval, PRN for pain, Not work or drive with this medication, # 20 tab(s), 0 Refill(s), Start Date: 08/19/16 18:37:00 [employer] FI[employer] SUPERVISOR Start Date: 08/19/16 Stop Date: 09/01/16 Status: CompletedZofran 4 mg oral tablet 1 tab(s), Oral, TID, PRN nausea/vomiting, # 10 tab(s), 0 Refill(s), Start Date: 08/09/16 21:28:00 [employer] FI[employer] SUPERVISOR Start Date: 08/09/16 Stop Date: 08/19/16 Status: [...] 0 Refill(s), Start Date : 06/26/15 4:33:00 BRO[employer]CAST FIELD SUPERVISOR Start Date: 06/26/15 Stop Date: 06/29/15 Status: CompletedZofran ODT 4 mg oral tablet, disintegrating 1 tab(s), Oral, TID, # 9 tab(s), 0 Refill(s), Start Date: 09/09/16 11:45:51 BROADCAST FIELD SUPERVISOR , Pharmacy: [facility] Start Date: 09/09/16 Stop Date: 09/12/16 Status: CompletedZofran ODT 4 mg oral tablet, disintegrating 1 tab(s), Oral, As Indicated, PRN nausea/vomiting, # 10 tab(s), 0 Refill(s), Start Date: 08/18/15 0:19:00 [employer] FIELD SUPERVISOR Start Date: 08/18/15 Stop Date: 08/31/15 Status: DiscontinuedZofran ODT 4 mg oral tablet, disintegrating 1 tab(s), Oral, QID, X 3 days, # 30 tab(s), 0 Refill(s), Start Date: 08/28/16 18 :51:00 [employer] FIELD SUPERVISOR Start Date: 08/28/16 Stop Date: 09/09/16 Status: CompletedZofran ODT 4 mg oral tablet, disintegrating 1 tab(s), Oral, q4hr, PRN nausea/vomiting, X 5 days, # 30 tab(s), 0 Refill(s), Start Date: 08/18/15 14:15:00 [employer] FIELD SUPERVISOR Start Date: 08/18/15 Stop Date: 08/23/15 Status: CompletedZofran ODT 4 mg oral tablet, disintegrating 1 tab(s), Oral, TID, PRN nausea/vomiting, # 10 tab(s), 0 Refill(s), Start Date: 09/12/16 12:24:00 [employer]CAST FIELD SUPERVISOR Start Date: 09/12/16 Status: OrderedZyrTEC 10 mg oral tablet 1 tab(s), Oral, Daily, # 30 tab(s), 11 Refill(s), Start Date: 11/14/15 13:45:00 CDT, Pharmacy: [facility] Start Date: 11/14/15 Stop Date: 04/26/16 Status: Completed Results Patient Viewable Results Most recent to oldest [Reference Range]: 1 Estimated Creatinine Clearance 167.63 mL/min (09/21/16 6:34 AM) Immunizations Given and Recorded Vaccine Date Status Refusal Reason tetanus/diphth/pertuss (Tdap) adult/adol 07/28/16 Given Not Given Vaccine Date Status Refusal Reason tetanus/diphth/pertuss (Tdap) adult/adol 04/27/16 Not Given Patient Refuses Procedures Procedure Date Related Diagnosis Body Site Esophagogastroduodenoscopy1 09/10/16 Tubal Ligation Post Partum2 04/27/16 Dilation and curettage of uterus 2013 Dilation and curettage of uterus 2000 1auto-populated from documented surgical [id number] from documented surgical case Social History No data available for this section Assessment and Plan No data available for this section
--- OUTSIDE RECORDS SUMMARY | 2016-11-03 00:07 | XMS REPORT | Summary of Care ---
:1990 Author Organization [facility] Address [address] [place] [id number]- Care Team Providers Name Role Phone Physician, Primary Care Primary Care Physician Unavailable Encounter Date(s): 01/16/16 - 01/16/[address] [address] Final: related exhaustion and fatigue, third trimester Final: Moderate persistent asthma, uncomplicated Final: 24 weeks gestation of Discharge Disposition: 01 Discharged to Home or Self Care Attending Physician: Holli Elliott DO Admitting Physician: Holli Elliott DO Vital Signs No data available for [...] QID, 0 Refill(s), Start Date: 08/31/15 13:37:00 INFORMATICS PHARMACIST Start Date: 08/31/15 Stop Date: 10/26/15 Status: CompletedCarafate 1 g oral tablet 1 tab(s), Oral, QIDACHS, X 14 days, # 56 tab(s), 0 Refill(s), Start Date: 4:34:00 INFORMATICS PHARMACIST Start Date: 06/26/15 Stop Date: 07/10/15 Status: CompletedCarafate 1 g oral tablet 1 tab(s), Oral, QID, # 28 tab(s), 0 Refill(s), Start Date: 10/26/15 13:03:00 INFORMATICS PHARMACIST Start Date: 10/26/15 Stop Date: 11/14/15 Status: DiscontinuedCeleXA 10 mg oral tablet 2 tab(s), Oral, Daily, 0 Refill(s), Start Date: 08/31/15 13:36:00 INFORMATICS PHARMACIST Start Date: 08/31/15 Status: OrderedClassic oral tablet 1 tab(s), Oral, Daily, # 30 tab(s), 11 Refill(s), Start Date: 08/31/15 14:03:00 INFORMATICS PHARMACIST, Pharmacy: [place] [id number] Start Date: 08/31/15 Status: Orderedferrous sulfate 325 mg (65 mg elemental iron) oral tablet 1 tab(s), Oral, Daily, # 90 tab(s), 2 Refill(s), Start Date: 01/16/16 13:33:00 CDT, Pharmacy: [place] [id number] Start Date: 01/16/16 Status: Orderedferrous sulfate 325 mg (65 mg elemental iron) oral tablet 1 tab(s), Oral, Daily, # 90 tab(s), 0 Refill(s), Start Date: 01/16/16 13:32:00 CDT Start Date: 01/16/16 Stop Date: 01/16/16 Status: DiscontinuedMacrobid 100 mg oral capsule 1 cap(s), Oral, BID, # 14 cap(s), 0 Refill(s), Start Date: 02/04/16 20:15:00 CDT , Pharmacy: [place] [id number] Start Date: 02/04/16 Stop Date: 02/06/16 Status: DiscontinuedMacrobid 100 mg oral capsule 1 cap(s), Oral, BID, # 14 cap(s), 0 Refill(s), Start Date: 11/26/15 15:08:00 CDT , Pharmacy: [place] [id number] Start Date: 11/26/15 Stop Date: 12/20/15 Status: Completedpantoprazole 40 mg oral delayed release tablet 1 tab(s), Oral, Daily, X 14 days, # 14 tab(s), 0 Refill(s), Start Date: 4:33:00 INFORMATICS PHARMACIST Start Date: 06/26/15 Stop Date: 07/10/15 Status: CompletedPercocet 5/325 oral tablet 2 tab(s), Oral, q6hr, PRN for pain, X 3 days, # 15 tab(s), 0 Refill(s), Start Date: 06/26/15 4:33:00 INFORMATICS PHARMACIST Start Date: 06/26/15 Stop Date: 06/29/15 Status: CompletedPercocet 5/325 oral tablet 1 or 2 tabs, Oral, q4hr, PRN pain moderate 4-7, Do not work or drive with this medication, # 12 tab(s), 0 Refill(s), Start Date: 08/18/15 0:20:00 INFORMATICS PHARMACIST Special Instructions: Do not work or drive with this medication Start Date: 08/18/15 Stop Date: 08/21/15 Status: CompletedpredniSONE 20 mg oral tablet See Instructions, 2 tab(s) Oral Daily for 5 days then 1 tab daily for 5 days then 0.5 tab daily for 5 days, # 20 tab(s), 0 Refill(s), Start Date: 12/20/15 14 :03:00 CDT, Pharmacy: [facility] Special Instructions: 2 tab(s) Oral Daily for 5 days then 1 tab daily for 5 days then 0.5 tab daily for 5 days Start Date: 12/20/15 Stop Date: 01/28/16 Status: CompletedProAir HFA 90 mcg/inh inhalation aerosol 2 puff(s), Inhale, QID, PRN for wheezing, # 1 boxes, 2 Refill(s), Start Date: 10:48:39 CDT, Pharmacy: [facility] Start Date: 01/16/16 Status: OrderedProAir HFA 90 mcg/inh inhalation aerosol 2 puff(s), Inhale, QID, PRN for wheezing, # 1 boxes, 2 Refill(s), Start Date: 13:59:00 INFORMATICS PHARMACIST, Pharmacy: [facility] Start Date: 10/17/15 Stop Date: 01/16/16 Status: Discontinuedpromethazine 25 mg oral tablet 1 tab(s), Oral, q4hr, PRN for nausea/vomiting, # 60 tab(s), 0 Refill(s), Start Date: 08/31/15 14:03:00 INFORMATICS PHARMACIST, Pharmacy: [facility] Start Date: 08/31/15 Stop Date: 11/14/15 Status: DiscontinuedSingulair 10 mg oral tablet 1 tab(s), Oral, qPM, # 30 tab(s), 5 Refill(s), Start Date: 12/20/15 14:03:00 CDT , Pharmacy: [facility] Start Date: 12/20/15 Status: OrderedSymbicort 80 mcg-4.5 mcg/inh inhalation aerosol 2 puff(s), Inhale, BID, # 7 gm, 11 Refill(s), Start Date: 11/14/15 13:45:00 CDT , Pharmacy: [place] [id number] Start Date: 11/14/15 Status: OrderedZofran ODT 4 mg oral tablet, disintegrating 1 tab(s), Oral, q6hr, PRN nausea, X 3 days, # 10 tab(s), 0 Refill(s), Start Date : 06/26/15 4:33:00 INFORMATICS PHARMACIST Start Date: 06/26/15 Stop Date: 06/29/15 Status: CompletedZofran ODT 4 mg oral tablet, disintegrating 1 tab(s), Oral, As Indicated, PRN nausea/vomiting, # 10 tab(s), 0 Refill(s), Start Date: 08/18/15 0:19:00 INFORMATICS PHARMACIST Start Date: 08/18/15 Stop Date: 08/31/15 Status: DiscontinuedZofran ODT 4 mg oral tablet, disintegrating 1 tab(s), Oral, q4hr, PRN nausea/vomiting, X 5 days, # 30 tab(s), 0 Refill(s), Start Date: 08/18/15 14:15:00 INFORMATICS PHARMACIST Start Date: 08/18/15 Stop Date: 08/23/15 Status: CompletedZyrTEC 10 mg oral tablet 1 tab(s), Oral, Daily, # 30 tab(s), 11 Refill(s), Start Date: 11/14/15 13:45:00 CDT, Pharmacy: [place] [id number] Start Date: 11/14/15 Status: Ordered Results Patient Viewable Results Most recent to oldest [Reference Range]: 1 WBC [4.8-10.8 thou/mm3] 9.6 thou/mm3 (01/16/16 11:01 AM) RBC [4.20-5.40 Mil/mm3] 3.85 Mil/mm3 *LOW* (01/16/16 11:01 AM) Hgb [12.0-16.0 g/dL] 11.7 g/dL *LOW* (01/16/16 11:01 AM) Hct [37.0-47.0 %] 35.4 % *LOW* (01/16/16 11:01 AM) MCV [80.0-94.0 fL] 91.9 fL (01/16/16 11:01 AM) MCH [25.0-38.0 pg/cell] 30.4 pg/cell (01/16/16 11:01 AM) MCHC [31.0-37.0 g/dL] 33.1 g/dL (01/16/16 11:01 AM) RDW [1.0-48.0 fL] 45.6 fL (01/16/16 11:01 AM) Platelet [130-400 thou/mm3] 314 thou/mm3 (01/16/16 11:01 AM) Immunizations No data available for this section Procedures Procedure Date Related Diagnosis Body Site Dilation and curettage of uterus 2012 Dilation and curettage of uterus 2000 Social History No data available for this section Assessment and Plan No data available for this section
--- OUTSIDE RECORDS SUMMARY | 2016-11-03 00:08 | XMS REPORT | Summary of Care ---
:1990 Author Organization [facility] Address [address] [place] [address] Care Team Providers Name Role Phone Physician, Primary Care Primary Care Physician Unavailable Encounter Date(s): 01/16/16 - 01/16/16 [facility], [address] [place], [place] [address] Discharge Diagnosis: Extreme immaturity of , gestational [...] QID, 0 Refill(s), Start Date: 08/31/15 13:37:00 [employer] Start Date: 08/31/15 Stop Date: 10/26/15 Status: CompletedCarafate 1 g oral tablet 1 tab(s), Oral, QIDACHS, X 14 days, # 56 tab(s), 0 Refill(s), Start Date: 4:34:00 [employer] Start Date: 06/26/15 Stop Date: 07/10/15 Status: CompletedCarafate 1 g oral tablet 1 tab(s), Oral, QID, # 28 tab(s), 0 Refill(s), Start Date: 10/26/15 13:03:00 [employer] Start Date: 10/26/15 Stop Date: 11/14/15 Status: DiscontinuedCeleXA 10 mg oral tablet 2 tab(s), Oral, Daily, 0 Refill(s), Start Date: 08/31/15 13:36:00 [employer] Start Date: 08/31/15 Status: OrderedClassic oral tablet 1 tab(s), Oral, Daily, # 30 tab(s), 11 Refill(s), Start Date: 08/31/15 14:03:00 [employer]CH[employer], Pharmacy: [id number] Start Date: 08/31/15 Status: Orderedferrous sulfate 325 mg (65 mg elemental iron) oral tablet 1 tab(s), Oral, Daily, # 90 tab(s), 2 Refill(s), Start Date: 01/16/16 13:33:00 CDT, Pharmacy: [id number] Start Date: 01/16/16 Status: Orderedferrous sulfate 325 mg (65 mg elemental iron) oral tablet 1 tab(s), Oral, Daily, # 90 tab(s), 0 Refill(s), Start Date: 01/16/16 13:32:00 CDT Start Date: 01/16/16 Stop Date: 01/16/16 Status: DiscontinuedMacrobid 100 mg oral capsule 1 cap(s), Oral, BID, # 14 cap(s), 0 Refill(s), Start Date: 02/04/16 20:15:00 CDT , Pharmacy: [id number] Start Date: 02/04/16 Stop Date: 02/06/16 Status: DiscontinuedMacrobid 100 mg oral capsule 1 cap(s), Oral, BID, # 14 cap(s), 0 Refill(s), Start Date: 11/26/15 15:08:00 CDT , Pharmacy: [id number] Start Date: 11/26/15 Stop Date: 12/20/15 Status: Completedpantoprazole 40 mg oral delayed release tablet 1 tab(s), Oral, Daily, X 14 days, # 14 tab(s), 0 Refill(s), Start Date: 4:33:00 [employer] Start Date: 06/26/15 Stop Date: 07/10/15 Status: CompletedPercocet 5/325 oral tablet 2 tab(s), Oral, q6hr, PRN for pain, X 3 days, # 15 tab(s), 0 Refill(s), Start Date: 06/26/15 4:33:00 [employer] Start Date: 06/26/15 Stop Date: 06/29/15 Status: CompletedPercocet 5/325 oral tablet 1 or 2 tabs, Oral, q4hr, PRN pain moderate 4-7, Do not work or drive with this medication, # 12 tab(s), 0 Refill(s), Start Date: 08/18/15 0:20:00 [employer] Special Instructions: Do not work or drive with this medication Start Date: 08/18/15 Stop Date: 08/21/15 Status: CompletedpredniSONE 20 mg oral tablet See Instructions, 2 tab(s) Oral Daily for 5 days then 1 tab daily for 5 days then 0.5 tab daily for 5 days, # 20 tab(s), 0 Refill(s), Start Date: 12/20/15 14 :03:00 CDT, Pharmacy: [id number] Special Instructions: 2 tab(s) Oral Daily for 5 days then 1 tab daily for 5 days then 0.5 tab daily for 5 days Start Date: 12/20/15 Stop Date: 01/28/16 Status: CompletedProAir HFA 90 mcg/inh inhalation aerosol 2 puff(s), Inhale, QID, PRN for wheezing, # 1 boxes, 2 Refill(s), Start Date: 10:48:39 CDT, Pharmacy: [place] [id number] Start Date: 01/16/16 Status: OrderedProAir HFA 90 mcg/inh inhalation aerosol 2 puff(s), Inhale, QID, PRN for wheezing, # 1 boxes, 2 Refill(s), Start Date: 13:59:00 [employer]CH[employer], Pharmacy: [place] [id number] Start Date: 10/17/15 Stop Date: 01/16/16 Status: Discontinuedpromethazine 25 mg oral tablet 1 tab(s), Oral, q4hr, PRN for nausea/vomiting, # 60 tab(s), 0 Refill(s), Start Date: 08/31/15 14:03:00 [employer]CH[employer], Pharmacy: [place] [id number] Start Date: 08/31/15 Stop Date: 11/14/15 Status: DiscontinuedSingulair 10 mg oral tablet 1 tab(s), Oral, qPM, # 30 tab(s), 5 Refill(s), Start Date: 12/20/15 14:03:00 CDT , Pharmacy: [place] [id number] Start Date: 12/20/15 Status: OrderedSymbicort 80 mcg-4.5 mcg/inh inhalation aerosol 2 puff(s), Inhale, BID, # 7 gm, 11 Refill(s), Start Date: 11/14/15 13:45:00 CDT , Pharmacy: [place] [id number] Start Date: 11/14/15 Status: OrderedZofran ODT 4 mg oral tablet, disintegrating 1 tab(s), Oral, q6hr, PRN nausea, X 3 days, # 10 tab(s), 0 Refill(s), Start Date : 06/26/15 4:33:00 [employer] Start Date: 06/26/15 Stop Date: 06/29/15 Status: CompletedZofran ODT 4 mg oral tablet, disintegrating 1 tab(s), Oral, As Indicated, PRN nausea/vomiting, # 10 tab(s), 0 Refill(s), Start Date: 08/18/15 0:19:00 [employer] Start Date: 08/18/15 Stop Date: 08/31/15 Status: DiscontinuedZofran ODT 4 mg oral tablet, disintegrating 1 tab(s), Oral, q4hr, PRN nausea/vomiting, X 5 days, # 30 tab(s), 0 Refill(s), Start Date: 08/18/15 14:15:00 [employer] Start Date: 08/18/15 Stop Date: 08/23/15 Status: CompletedZyrTEC 10 mg oral tablet 1 tab(s), Oral, Daily, # 30 tab(s), 11 Refill(s), Start Date: 11/14/15 13:45:00 CDT, Pharmacy: [id number] Start Date: 11/14/15 Status: [...]
--- OUTSIDE RECORDS SUMMARY | 2016-11-03 00:08 | XMS REPORT | Summary of Care ---
:1990 Author Organization [facility] Address [address] [place] [id number]- Care Team Providers Name Role Phone Alta Miller Primary Care Physician Encounter Date(s): 10/11/16 - 10/11/[address] [id number]- [facility] Discharge Disposition: 01 Discharged to Home or Self Care Attending Physician: RAYNA Mcclellan Admitting Physician: RAYNA Mcclellan Vital Signs Most recent to oldest [Reference Range]: 1 2 Temperature Temporal Artery [36-38 DegC] 36.5 DegC (10/11/16 11:23 PM) Temperature Temporal Artery [36.0-38.0 DegC] 37.1 DegC (10/11/16 8:22 PM) Heart Rate Monitored [60-100 bpm] 84 bpm 100 bpm (10/11/16 11:23 PM) (10/11/16 8:22 PM) Respiratory Rate [12-20 br/min] 18 br/min 20 br/min (10/11/16 11:23 PM) (10/11/16 8:22 PM) SpO2 [90-100 %] 100 % 97 % (10/11/16 11:23 PM) (10/11/16 8:22 PM) Blood Pressure [90-130/60-90 mmHg] 116/63mmHg 110/68mmHg (10/11/16 11:23 PM) (10/11/16 8:22 PM) Most recent to oldest [Reference Range]: 1 2 Weight Estimated 100 kg (10/11/16 8:22 PM) Weight Dosing 100.00 kg1 (10/11/16 8:24 PM) 1Result Comment: This result was because the dosing weight was either not entered or it is>30 days old. This result is based off: Weight Estimated October 11, 2016 20:22:00 [employer] by Allison James RN Problem List Condition Effective Dates Status [...] QID, 0 Refill(s), Start Date: 08/31/15 13:37:00 [employer] Start Date: 08/31/15 Stop Date: 10/26/15 Status: CompletedCarafate 1 g oral tablet 1 tab(s), Oral, QID, # 120 tab(s), 0 Refill(s), Start Date: 07/25/16 13:18:00 [employer], Pharmacy: [id number] Start Date: 07/25/16 Status: OrderedCarafate 1 g oral tablet 1 tab(s), Oral, QIDACHS, # 56 tab(s), 0 Refill(s), Start Date: 06/06/16 12:51: 00 CDT Start Date: 06/06/16 Stop Date: 06/12/16 Status: DiscontinuedCarafate 1 g oral tablet 1 tab(s), Oral, QIDACHS, X 14 days, # 56 tab(s), 0 Refill(s), Start Date: 4:34:00 [employer] Start Date: 06/26/15 Stop Date: 07/10/15 Status: CompletedCarafate 1 g oral tablet 1 tab(s), Oral, QID, # 28 tab(s), 0 Refill(s), Start Date: 10/26/15 13:03:00 [employer] Start Date: 10/26/15 Stop Date: 11/14/15 Status: DiscontinuedCeleXA 10 mg oral tablet 2 tab(s), Oral, Daily, 0 Refill(s), Start Date: 08/31/15 13:36:00 [employer] Start Date: 08/31/15 Stop Date: 07/14/16 Status: DiscontinuedCeleXA 20 mg oral tablet 1 tab(s), Oral, Daily, # 30 tab(s), 2 Refill(s), Start Date: 07/14/16 12:54:00 [employer], Pharmacy: [place] [id number] Start Date: 07/14/16 Status: Orderedcetirizine 5 mg oral tablet 1 tab(s), Oral, Daily, # 10 tab(s), 0 Refill(s), Start Date: 09/01/16 15:51:00 [employer], Pharmacy: [place] [id number] Start Date: 09/01/16 Stop Date: 09/12/16 Status: CompletedClassic oral tablet 1 tab(s), Oral, Daily, # 30 tab(s), 11 Refill(s), Start Date: 08/31/15 14:03:00 [employer], Pharmacy: [place] [id number] Start Date: 08/31/15 Stop Date: 08/01/16 Status: Completeddicyclomine 20 mg oral tablet 1 tab(s), Oral, QID, PRN abdominal pain, # 40 tab(s), 0 Refill(s), Start Date: 08/06/16 0:16:00 [employer] Start Date: 08/06/16 Stop Date: 08/19/16 Status: CompletedDilaudid 2 mg oral tablet 1 tab(s), Oral, q8hr interval, PRN for pain, # 30 tab(s), 0 Refill(s), Start Date: 08/28/16 18:51:00 [employer] Start Date: 08/28/16 Stop Date: 09/09/16 Status: Completedferrous sulfate 325 mg (65 mg elemental iron) oral tablet 1 tab(s), Oral, Daily, # 90 tab(s), 2 Refill(s), Start Date: 01/16/16 13:33:00 CDT, Pharmacy: [place] [id number] Start Date: 01/16/16 Stop Date: 04/28/16 Status: Discontinuedferrous sulfate 325 mg (65 mg elemental iron) oral tablet 1 tab(s), Oral, Daily, # 90 tab(s), 0 Refill(s), Start Date: 01/16/16 13:32:00 CDT Start Date: 01/16/16 Stop Date: 01/16/16 Status: DiscontinuedFlagyl 500 mg oral tablet 1 tab(s), Oral, q12hr, # 14 tab(s), 0 Refill(s), Start Date: 02/23/16 23:20:00 CDT, Pharmacy: [facility] Start Date: 02/23/16 Stop Date: 03/12/16 Status: Discontinuedibuprofen 600 mg oral tablet 1 tab(s), Oral, q6hr, PRN pain mild 1-3, # 30 tab(s), 0 Refill(s), Start Date: 04/28/16 9:49:00 CDT, Pharmacy: [facility] Start Date: 04/28/16 Stop Date: 08/01/16 Status: CompletedMacrobid 100 mg oral capsule 1 cap(s), Oral, BID, # 14 cap(s), 0 Refill(s), Start Date: 02/04/16 20:15:00 CDT , Pharmacy: [facility] Start Date: 02/04/16 Stop Date: 02/06/16 Status: DiscontinuedMacrobid 100 mg oral capsule 1 cap(s), Oral, BID, # 14 cap(s), 0 Refill(s), Start Date: 11/26/15 15:08:00 CDT , Pharmacy: [facility] Start Date: 11/26/15 Stop Date: 12/20/15 Status: Completedmagnesium citrate 1.745 g/30 mL oral liquid 150 mL, Oral, ONETIME, # 300 mL, 0 Refill(s), Start Date: 08/01/16 18:28:00 [employer] Start Date: 08/01/16 Stop Date: 08/01/16 Status: CompletedMiraLax oral powder for reconstitution 17 gm=, Oral, Daily, dissolve in water before taking, X 31 days, # 527 gm, 0 Refill(s), Start Date: 08/01/16 18:28:00 [employer] Special Instructions: dissolve in water before taking Start Date: 08/01/16 Stop Date: 08/04/16 Status: Completedomeprazole 40 mg oral delayed release capsule 1 cap(s), Oral, Daily, # 30 cap(s), 0 Refill(s), Start Date: 07/25/16 13:18:00 [employer], Pharmacy: [facility] Start Date: 07/25/16 Stop Date: 09/12/16 Status: Completedomeprazole 40 mg oral delayed release capsule 1 cap(s), Oral, Daily, # 30 cap(s), 0 Refill(s), Start Date: 09/10/16 10:56:00 [employer], Pharmacy: [facility] Start Date: 09/10/16 Status: Orderedondansetron 4 mg oral tablet, disintegrating 1 tab(s), Oral, TID, PRN nausea/vomiting, Start Date: 06/06/16 10:52:00 CDT Start Date: 06/06/16 Stop Date: 08/01/16 Status: CompletedoxyCODONE-acetaminophen 5 mg-325 mg oral tablet 1 tab(s), Oral, TID, PRN pain severe 8-10, X 7 days, # 21 tab(s), 0 Refill(s), Start Date: 06/30/16 9:59:27 [employer], Pharmacy: [facility] Start Date: 06/30/16 Stop Date: 07/07/16 Status: CompletedoxyCODONE-acetaminophen 5 mg-325 mg oral tablet 1 tab(s), Oral, TID, PRN pain severe 8-10, X 7 days, # 21 tab(s), 0 Refill(s), Start Date: 06/23/16 15:23:20 CDT, Pharmacy: [facility] Start Date: 06/23/16 Stop Date: 06/30/16 Status: CompletedoxyCODONE-acetaminophen 5 mg-325 mg oral tablet 2 tab(s), Oral, TID, PRN for pain, Only for severe pain 8-10 not to exceed 4000 mg acetaminophen per day, X 14 days, # 84 tab(s), 0 Refill(s), Start Date: 07/18/16 11:01:00 [employer], other reason (Rx) Special Instructions: Only for [...] 0 Refill(s), Start Date: 12:59:00 CDT, Pharmacy: [facility] Start Date: 04/11/16 Stop Date: 04/26/16 Status: CompletedoxyCODONE-acetaminophen 5 mg-325 mg oral tablet 1 tab(s), Oral, TID, PRN for pain, Only for severe pain 8-10, X 14 days, # 42 tab(s), 0 Refill(s), Start Date: 07/10/16 9:02:23 [employer], Pharmacy: [facility] Special Instructions: Only for severe pain 8-10 Start Date: 07/10/16 Stop Date: 07/18/16 Status: CompletedoxyCODONE-acetaminophen 5 mg-325 mg oral tablet 1 tab(s), Oral, q6hr interval, PRN pain severe 8-10, X 10 days, # 40 tab(s), 0 Refill(s), Start Date: 06/12/16 14:19:00 CDT, Pharmacy: [facility] Start Date: 06/12/16 Stop Date: 06/22/16 Status: CompletedoxyCODONE-acetaminophen 5 mg-325 mg oral tablet 1 tab(s), Oral, Daily, PRN for pain, Only for severe pain 8-10, X 7 days, # 7 tab(s), 0 Refill(s), Start Date: 07/07/16 8:39:00 [employer], Pharmacy: [facility] Special Instructions: Only for severe pain 8-10 Start Date: 07/07/16 Stop Date: 07/10/16 Status: CompletedoxyCODONE-acetaminophen 5 mg-325 mg oral tablet 2 tab(s), Oral, TID, PRN for pain, Only for severe pain 8-10 not to exceed 4000 mg acetaminophen per day, X 7 days, # 42 tab(s), 0 Refill(s), Start Date: 07/18/16 11:44:08 [employer], Pharmacy: [facility] Special Instructions: Only for severe pain 8-10 not to exceed 4000 mg acetaminophen per day Start Date: 07/18/16 Stop Date: 07/25/16 Status: CompletedoxyCODONE-acetaminophen 5mg-325mg oral tablet 2 tab(s), Oral, TID, PRN for pain, Only for severe pain 8-10 not to exceed 4000 mg acetaminophen per day, X 7 days, # 42 tab(s), 0 Refill(s), Start Date: 07/25/16 12:04:23 [employer], Pharmacy: [facility] Special Instructions: Only for severe pain 8-10 not to exceed 4000 mg acetaminophen per day Start Date: 07/25/16 Stop Date: 08/01/16 Status: Completedpantoprazole 40 mg oral delayed release tablet 1 tab(s), Oral, Daily, X 14 days, # 14 tab(s), 0 Refill(s), Start Date: 4:33:00 [employer] Start Date: 06/26/15 Stop Date: 07/10/15 Status: [...] tab(s), 0 Refill(s), Start Date: 10/11/16 23:52:00 [employer] Special Instructions: Do not work or drive with this medication Start Date: 10/11/16 Stop Date: 10/12/16 Status: OrderedPercocet 5/325 oral tablet 1 tab(s), Oral, TID, PRN for pain, X 7 days, # 21 tab(s), 0 Refill(s), Start Date: 09/16/16 8:47:54 [employer], Pharmacy: [facility] Start Date: 09/16/16 Stop Date: 09/22/16 Status: CompletedPercocet 5/325 oral tablet 1 tab(s), Oral, q6hr, PRN for pain, # 30 tab(s), 0 Refill(s), Start Date: 9:49:26 CDT, Pharmacy: [place] [id number] Start Date: 04/28/16 Stop Date: 05/28/16 Status: CompletedPercocet 5/325 oral tablet 1 tab(s), Oral, Daily, PRN for pain, # 3 tab(s), 0 Refill(s), Start Date: 9:47:00 [employer], Pharmacy: [place] [id number] Start Date: 09/30/16 Stop Date: 10/03/16 Status: OrderedPercocet 5/325 oral tablet 1 tab(s), Oral, q6hr, PRN for pain, # 10 tab(s), 0 Refill(s), Start Date: 8:35:41 CDT, Pharmacy: [place] [id number] Start Date: 04/18/16 Stop Date: 04/28/16 Status: DiscontinuedPercocet 5/325 oral tablet 1 tab(s), Oral, q4hr, PRN for pain, X 5 days, # 20 tab(s), 0 Refill(s), Start Date: 06/01/16 0:48:00 CDT Start Date: 06/01/16 Stop Date: 06/06/16 Status: CompletedPercocet 5/325 oral tablet 2 tab(s), Oral, q6hr, PRN for pain, X 3 days, # 15 tab(s), 0 Refill(s), Start Date: 06/26/15 4:33:00 [employer] Start Date: 06/26/15 Stop Date: 06/29/15 Status: CompletedPercocet 5/325 oral tablet 1 tab(s), Oral, q6hr interval, PRN for pain, X 7 days, # 28 tab(s), 0 Refill(s) , Start Date: 09/09/16 11:45:52 [employer], Pharmacy: [facility] Start Date: 09/09/16 Stop Date: 09/16/16 Status: CompletedPercocet 5/325 oral tablet 1 or 2 tabs, Oral, q4hr, PRN pain moderate 4-7, Do not work or drive with this medication, # 12 tab(s), 0 Refill(s), Start Date: 08/18/15 0:20:00 [employer] Special Instructions: Do not work or drive with this medication Start Date: 08/18/15 Stop Date: 08/21/15 Status: CompletedPercocet 5/325 oral tablet 1 or 2 tabs, Oral, q4hr, PRN pain moderate 4-7, Do not work or drive with this medication, # 12 tab(s), 0 Refill(s), Start Date: 09/27/16 16:08:00 [employer] Special Instructions: Do not work or drive with this medication Start Date: 09/27/16 Stop Date: 09/29/16 Status: CompletedPercocet 5/325 oral tablet 1 tab(s), Oral, q4hr, PRN for pain, # 12 tab(s), 0 Refill(s), Start Date: 11:11:48 [employer] Start Date: 10/06/16 Status: OrderedPercocet 5/325 oral tablet 1 tab(s), Oral, q4hr, PRN for pain, # 12 tab(s), 0 Refill(s), Start Date: 13:55:00 [employer] Start Date: 10/03/16 Stop Date: 10/06/16 Status: CompletedPercocet 5/325 oral tablet 1 tab(s), Oral, q6hr, PRN for pain, # 10 tab(s), 0 Refill(s), Start Date: 22:53:00 CDT, Pharmacy: [facility] Start Date: 04/17/16 Stop Date: 04/18/16 Status: DiscontinuedPercocet 5/325 oral tablet 1 tab(s), Oral, TID, PRN for pain, # 30 tab(s), 0 Refill(s), Start Date: 15:49:00 [employer] Start Date: 09/01/16 Stop Date: 09/09/16 Status: CompletedPercocet 5/325 oral tablet 1 tab(s), Oral, BID, PRN for pain, X 7 days, # 14 tab(s), 0 Refill(s), Start Date: 09/22/16 9:06:36 [employer], Pharmacy: [facility] Start Date: 09/22/16 Stop Date: 09/30/16 Status: CompletedPhenergan 25 mg oral tablet 1 tab(s), Oral, q4hr, PRN for nausea/vomiting, X 5 days, # 30 tab(s), 0 Refill(s ), Start Date: 08/24/16 12:32:00 [employer] Start Date: 08/24/16 Stop Date: 08/29/16 Status: CompletedpredniSONE 20 mg oral tablet See Instructions, 2 tab(s) Oral Daily for 5 days then 1 tab daily for 5 days then 0.5 tab daily for 5 days, # 20 tab(s), 0 Refill(s), Start Date: 12/20/15 14 :03:00 CDT, Pharmacy: [facility] Special Instructions: 2 tab(s) Oral Daily for 5 days then 1 tab daily for 5 days then 0.5 tab daily for 5 days Start Date: 12/20/15 Stop Date: 01/28/16 Status: CompletedProAir HFA 90 mcg/inh inhalation aerosol 2 puff(s), Inhale, QID, PRN for wheezing, # 1 boxes, 2 Refill(s), Start Date: 10:48:39 CDT, Pharmacy: [facility] Start Date: 01/16/16 Status: OrderedProAir HFA 90 mcg/inh inhalation aerosol 2 puff(s), Inhale, QID, PRN for wheezing, # 1 boxes, 2 Refill(s), Start Date: 13:59:00 [employer], Pharmacy: [facility] Start Date: 10/17/15 Stop Date: [...] 0 Refill(s), Start Date: 08/02/16 21 :58:00 [employer] Special Instructions: Dispense Start Date: 08/02/16 Stop Date: 08/19/16 Status: Completedpromethazine 25 mg oral tablet 1 tab(s), Oral, q6hr, # 12 tab(s), 0 Refill(s), Start Date: 08/02/16 21:56:00 [employer] Start Date: 08/02/16 Stop Date: 08/19/16 Status: Completedpromethazine 25 mg oral tablet 1 tab(s), Oral, q4hr, PRN for nausea/vomiting, # 60 tab(s), 0 Refill(s), Start Date: 08/31/15 14:03:00 [employer], Pharmacy: [facility] Start Date: 08/31/15 Stop Date: 11/14/15 Status: DiscontinuedSingulair 10 mg oral tablet 1 tab(s), Oral, qPM, # 30 tab(s), 5 Refill(s), Start Date: 12/20/15 14:03:00 CDT , Pharmacy: [facility] Start Date: 12/20/15 Stop Date: 04/26/16 Status: CompletedSymbicort 80 mcg-4.5 mcg/inh inhalation aerosol 2 puff(s), Inhale, BID, # 7 gm, 11 Refill(s), Start Date: 11/14/15 13:45:00 CDT , Pharmacy: [facility] Start Date: 11/14/15 Stop Date: 04/26/16 Status: CompletedtraMADol 50 mg oral tablet 1 tab(s), Oral, q4hr interval, PRN as needed for pain, X 3 days, # 18 tab(s), 0 Refill(s), Start Date: 08/24/16 12:32:00 [employer] Start Date: 08/24/16 Stop Date: 08/27/16 Status: CompletedtraMADol 50 mg oral tablet 1 tab(s), Oral, q4hr, PRN for pain, # 10 tab(s), 0 Refill(s), Start Date: 21:27:00 [employer] Start Date: 08/09/16 Stop Date: 08/19/16 Status: CompletedtraMADol 50 mg oral tablet 1 tab(s), Oral, q4hr, PRN as needed for pain, Dispense, # 4 tab(s), 0 Refill(s) , Start Date: 08/02/16 21:58:00 [employer] Special Instructions: Dispense Start Date: 08/02/16 Stop Date: 08/19/16 Status: CompletedtraMADol 50 mg oral tablet 1 tab(s), Oral, q4hr interval, PRN as needed for pain, # 18 tab(s), 0 Refill(s) , Start Date: 08/02/16 21:56:00 [employer] Start Date: 08/02/16 Stop Date: 08/19/16 Status: CompletedUltram 50 mg oral tablet 1 or2 tab(s), Oral, q6hr interval, PRN for pain, Not work or drive with this medication, # 20 tab(s), 0 Refill(s), Start Date: 08/19/16 18:37:00 [employer] Special Instructions: Not work or drive with this medication Start Date: 08/19/16 Stop Date: 09/01/16 Status: CompletedZofran 4 mg oral tablet 1 tab(s), Oral, TID, PRN nausea/vomiting, # 10 tab(s), 0 Refill(s), Start Date: 08/09/16 21:28:00 [employer] Start Date: 08/09/16 Stop Date: 08/19/16 Status: [...] 0 Refill(s), Start Date : 06/26/15 4:33:00 [employer] Start Date: 06/26/15 Stop Date: 06/29/15 Status: CompletedZofran ODT 4 mg oral tablet, disintegrating 1 tab(s), Oral, TID, # 9 tab(s), 0 Refill(s), Start Date: 09/09/16 11:45:51 [employer] , Pharmacy: [facility] Start Date: 09/09/16 Stop Date: 09/12/16 Status: CompletedZofran ODT 4 mg oral tablet, disintegrating 1 tab(s), Oral, As Indicated, PRN nausea/vomiting, # 10 tab(s), 0 Refill(s), Start Date: 08/18/15 0:19:00 [employer] Start Date: 08/18/15 Stop Date: 08/31/15 Status: DiscontinuedZofran ODT 4 mg oral tablet, disintegrating 1 tab(s), Oral, q8hr interval, PRN nausea/vomiting, # 12 tab(s), 0 Refill(s), Start Date: 09/27/16 16:08:00 [employer] Start Date: 09/27/16 Status: OrderedZofran ODT 4 mg oral tablet, disintegrating 1 tab(s), Oral, QID, X 3 days, # 30 tab(s), 0 Refill(s), Start Date: 08/28/16 18 :51:00 [employer] Start Date: 08/28/16 Stop Date: 09/09/16 Status: CompletedZofran ODT 4 mg oral tablet, disintegrating 1 tab(s), Oral, q4hr, PRN nausea/vomiting, X 5 days, # 30 tab(s), 0 Refill(s), Start Date: 08/18/15 14:15:00 [employer] Start Date: 08/18/15 Stop Date: 08/23/15 Status: CompletedZofran ODT 4 mg oral tablet, disintegrating 1 tab(s), Oral, TID, PRN nausea/vomiting, # 10 tab(s), 0 Refill(s), Start Date: 09/12/16 12:24:00 [employer] Start Date: 09/12/16 Stop Date: 10/01/16 Status: CompletedZyrTEC 10 mg oral tablet 1 tab(s), Oral, Daily, # 30 tab(s), 11 Refill(s), Start Date: 11/14/15 13:45:00 CDT, Pharmacy: [facility] Start Date: 11/14/15 Stop Date: 04/26/16 Status: Completed Results Patient Viewable Results Most recent to oldest [Reference 1 2 Range]: WBC [4.8-10.8 thou/mm3] 8.9 thou/mm3 (10/11/16 10:23 PM) RBC [4.20-5.40 Mil/mm3] 4.48 Mil/mm3 (10/11/16 10:23 PM) Hgb [12.0-16.0 g/dL] 13.6 g/dL (10/11/16 10:23 PM) Hct [37.0-47.0 %] 41.3 % (10/11/16 10:23 PM) MCV [80.0-94.0 fL] 92.2 fL (10/11/16 10:23 PM) MCH [25.0-38.0 pg/cell] 30.4 pg/cell (10/11/16 10:23 PM) MCHC [31.0-37.0 g/dL] 32.9 g/dL (10/11/16 10:23 PM) RDW [1.0-48.0 fL] 42.7 fL (10/11/16 10:23 PM) Platelet [130-400 thou/mm3] 328 thou/mm3 (10/11/16 10:23 PM) Neutrophils % Auto [50.0-75.0 %] 56.2 % (10/11/16 10:23 PM) Immature Granulocyte Auto [0.1-2.0 0.3 % %] (10/11/16 10:23 PM) Lymphocytes % Auto [15.0-41.0 %] 32.3 % (10/11/16 10:23 PM) Monocytes % Auto [2.0-10.0 %] 7.2 % (10/11/16 10:23 PM) Eosinophils % Auto [0.0-6.0 %] 3.8 % (10/11/16 10:23 PM) Basophil % Auto [0.0-1.0 %] 0.2 % (10/11/16 10:23 PM) Neutrophils Absolute [1.5-5.9 5.0 thou/mm3 thou/mm3] (10/11/16 10:23 PM) Immature Gran Absolute [0.01-0.03 0.03 thou/mm3 thou/mm3] (10/11/16 10:23 PM) Lymphocytes Absolute [1.5-4.0 2.9 thou/mm3 thou/mm3] (10/11/16 10:23 PM) Monocytes Absolute [0.0-0.9 0.6 thou/mm3 thou/mm3] (10/11/16 10:23 PM) Eosinophil Absolute [0.0-0.7 0.3 thou/mm3 thou/mm3] (10/11/16 10:23 PM) Basophil Absolute [0.0-0.2 0.0 thou/mm3 thou/mm3] (10/11/16 10:23 PM) Sodium Lvl [135-144 mEq/L] 139 mEq/L (10/11/16 10:23 PM) Potassium Lvl [3.3-4.8 mEq/L] 4.1 mEq/L (10/11/16 10:23 PM) Chloride Lvl [98-107 mEq/L] 101 mEq/L (10/11/16 10:23 PM) Bicarbonate Lvl [22-30 mmol/L] 29 mmol/L (10/11/16 10:23 PM) Anion Gap [10.0-20.0] 13.1 (10/11/16 10:23 PM) Glucose Lvl [70-108 mg/dL] 96 mg/dL (10/11/16 10:23 PM) BUN [7-21 mg/dL] 16 mg/dL (10/11/16 10:23 PM) Creatinine Lvl [0.50-1.20 mg/dL] 0.59 mg/dL (10/11/16 10:23 PM) BUN/Creat Ratio 27.1 *NA* (10/11/16 10:23 PM) eGFR AA [>=60] >60 (10/11/16 10:23 PM) eGFR SIVA [>=60] >60 (10/11/16 10:23 PM) Calcium Lvl [8.6-10.2 mg/dL] 9.6 mg/dL (10/11/16 10:23 PM) Total Protein [6.4-8.3 g/dL] 7.5 g/dL (10/11/16 10:23 PM) Albumin Lvl [3.5-5.2 g/dL] 4.6 g/dL (10/11/16 10:23 PM) Globulin 2.9 *NA* (10/11/16 10:23 PM) A/G Ratio [0.9-1.8] 1.6 (10/11/16 10:23 PM) Bilirubin Total [0.1-1.0 mg/dL] 0.3 mg/dL (10/11/16 10:23 PM) Alkaline Phosphatase [39-129 93 unit/L unit/L] (10/11/16 10:23 PM) AST [0-39 unit/L] 17 unit/L (10/11/16 10:23 PM) ALT [0-40 unit/L] 12 unit/L (10/11/16 10:23 PM) Lipase Lvl [13-60 unit/L] 114 unit/L *HI* (10/11/16 10:23 PM) C Reactive Protein [0.0-0.4 mg/dL] 0.3 mg/dL (10/11/16 10:23 PM) Estimated Creatinine Clearance 175.33 mL/min 159.14 mL/min (10/11/16 10:50 PM) (10/11/16 8:24 PM) UA Color Yellow *NA* (10/11/16 10:18 PM) Urine Clarity Clear *NA* (10/11/16 10:18 PM) Specific [place]y [1.000-1.060] 1.023 (10/11/16 10:18 PM) Urine pH [5-8] 5 (10/11/16 10:18 PM) Ketones Negative (10/11/16 10:18 PM) Bilirubin [Negative] Negative (10/11/16 10:18 PM) Urine Protein [Negative] Negative (10/11/16 10:18 PM) Glucose [Negative] Negative (10/11/16 10:18 PM) Urine HGB [Negative] Negative (10/11/16 10:18 PM) Urobilinogen <2.0 *NA* (10/11/16 10:18 PM) Nitrite [Negative] Negative (10/11/16 10:18 PM) Leuk Esterase [Negative] Negative (10/11/16 10:18 PM) UA Ascorbic Acid [Negative] Negative (10/11/16 10:18 PM) Urine WBC [0-5] 0-5 (10/11/16 10:18 PM) Urine RBC [0-2] 0-2 (10/11/16 10:18 PM) Squamous Epi [0-5] 0-5 (10/11/16 10:18 PM) Mucus 3+ *ABN* (10/11/16 10:18 PM) Hyaline Casts 0-2 (10/11/16 10:18 PM) Urine [Negative] Negative (10/11/16 10:18 PM) UA HCG, Interp. First morning urine specimen is preferred. If the result does not correlate with clinical presentation, then either immediate serum quantitative HCG test or repeat qualitative test in forty-eight hour s recommended. The test is intended as an aid in diagnosing early . *Unknown* (10/11/16 10:18 PM) Immunizations Vaccine Date Refusal Reason tetanus/diphth/pertuss (Tdap) adult/adol 07/28/16 tetanus/diphth/pertuss (Tdap) adult/adol 04/27/16 Patient Refuses Procedures Procedure Date Related Diagnosis Body Site Cholecystectomy Laparoscopic1 10/03/16 Esophagogastroduodenoscopy2 09/10/16 Tubal Ligation Post Partum3 04/27/16 Colonoscopy 2012 Dilation and curettage of uterus 2012 Dilation and curettage of uterus 2000 1auto-populated from documented surgical [id number] from documented surgical [id number] from documented surgical case Social History No data available for this section Assessment and Plan No data available for this section
--- OUTSIDE RECORDS SUMMARY | 2016-11-03 00:09 | XMS REPORT | Summary of Care ---
:1990 Author Organization [facility] Address [address] [place] [address] Care Team Providers Name Role Phone Paul Alta Salmeron Primary Care Physician Encounter Date(s): 09/26/16 - 09/26/16 [facility], [address] [place], [place] [address] [[email or web address]] Discharge Diagnosis: Biliary colic Discharge Diagnosis: Pancreatitis Discharge Disposition: 01 Discharged to Home or Self Care Attending Physician: Brian Leyva MD Referring Physician: Kevan Vincent DO Vital Signs Most recent to oldest [Reference Range]: 1 Blood Pressure [90-130/60-90 mmHg] 122/70mmHg (09/26/16 1:43 PM) Mean Arterial Pressure, Cuff 87 mmHg (09/26/16 1:43 PM) Most recent to oldest [Reference Range]: 1 Height/Length Measured 170 cm (09/26/16 1:43 PM) Weight Dosing 110.80 kg1 (09/26/16 1:47 PM) Weight Measured 110.8 kg (09/26/16 1:43 PM) BSA Measured 2.2 m2 (09/26/16 1:43 PM) Body Mass Index Measured 38.34 kg/m2 (09/26/16 1:43 PM) 1Result Comment: This result was because the dosing weight was either not entered or it is>30 days old. This result is based off: Weight Measured September 26, 2016 13:43:00 [employer] by Kalyani Rodrigeuz RN Problem List Condition Effective Dates Status [...] QID, 0 Refill(s), Start Date: 08/31/15 13:37:00 [employer] Start Date: 08/31/15 Stop Date: 10/26/15 Status: CompletedCarafate 1 g oral tablet 1 tab(s), Oral, QID, # 120 tab(s), 0 Refill(s), Start Date: 07/25/16 13:18:00 [employer], Pharmacy: [id number] Start Date: 07/25/16 Status: OrderedCarafate 1 g oral tablet 1 tab(s), Oral, QIDACHS, # 56 tab(s), 0 Refill(s), Start Date: 06/06/16 12:51: 00 CDT Start Date: 06/06/16 Stop Date: 06/12/16 Status: DiscontinuedCarafate 1 g oral tablet 1 tab(s), Oral, QIDACHS, X 14 days, # 56 tab(s), 0 Refill(s), Start Date: 4:34:00 [employer] Start Date: 06/26/15 Stop Date: 07/10/15 Status: CompletedCarafate 1 g oral tablet 1 tab(s), Oral, QID, # 28 tab(s), 0 Refill(s), Start Date: 10/26/15 13:03:00 [employer] Start Date: 10/26/15 Stop Date: 11/14/15 Status: DiscontinuedCeleXA 10 mg oral tablet 2 tab(s), Oral, Daily, 0 Refill(s), Start Date: 08/31/15 13:36:00 [employer] Start Date: 08/31/15 Stop Date: 07/14/16 Status: DiscontinuedCeleXA 20 mg oral tablet 1 tab(s), Oral, Daily, # 30 tab(s), 2 Refill(s), Start Date: 07/14/16 12:54:00 [employer], Pharmacy: [facility] Start Date: 07/14/16 Status: Orderedcetirizine 5 mg oral tablet 1 tab(s), Oral, Daily, # 10 tab(s), 0 Refill(s), Start Date: 09/01/16 15:51:00 [employer], Pharmacy: [place] [id number] Start Date: 09/01/16 Stop Date: 09/12/16 Status: CompletedClassic oral tablet 1 tab(s), Oral, Daily, # 30 tab(s), 11 Refill(s), Start Date: 08/31/15 14:03:00 [employer], Pharmacy: [place] [id number] Start Date: 08/31/15 Stop Date: 08/01/16 Status: Completeddicyclomine 20 mg oral tablet 1 tab(s), Oral, QID, PRN abdominal pain, # 40 tab(s), 0 Refill(s), Start Date: 08/06/16 0:16:00 [employer] Start Date: 08/06/16 Stop Date: 08/19/16 Status: CompletedDilaudid 2 mg oral tablet 1 tab(s), Oral, q8hr interval, PRN for pain, # 30 tab(s), 0 Refill(s), Start Date: 08/28/16 18:51:00 [employer] Start Date: 08/28/16 Stop Date: 09/09/16 Status: Completedferrous sulfate 325 mg (65 mg elemental iron) oral tablet 1 tab(s), Oral, Daily, # 90 tab(s), 2 Refill(s), Start Date: 01/16/16 13:33:00 CDT, Pharmacy: [place] [id number] Start Date: 01/16/16 Stop Date: 04/28/16 Status: Discontinuedferrous sulfate 325 mg (65 mg elemental iron) oral tablet 1 tab(s), Oral, Daily, # 90 tab(s), 0 Refill(s), Start Date: 01/16/16 13:32:00 CDT Start Date: 01/16/16 Stop Date: 01/16/16 Status: DiscontinuedFlagyl 500 mg oral tablet 1 tab(s), Oral, q12hr, # 14 tab(s), 0 Refill(s), Start Date: 02/23/16 23:20:00 CDT, Pharmacy: [place] [id number] Start Date: 02/23/16 Stop Date: 03/12/16 Status: Discontinuedibuprofen 600 mg oral tablet 1 tab(s), Oral, q6hr, PRN pain mild 1-3, # 30 tab(s), 0 Refill(s), Start Date: 04/28/16 9:49:00 CDT, Pharmacy: [place] [id number] Start Date: 04/28/16 Stop Date: 08/01/16 Status: CompletedMacrobid 100 mg oral capsule 1 cap(s), Oral, BID, # 14 cap(s), 0 Refill(s), Start Date: 02/04/16 20:15:00 CDT , Pharmacy: [place] [id number] Start Date: 02/04/16 Stop Date: 02/06/16 Status: DiscontinuedMacrobid 100 mg oral capsule 1 cap(s), Oral, BID, # 14 cap(s), 0 Refill(s), Start Date: 11/26/15 15:08:00 CDT , Pharmacy: [place] [id number] Start Date: 11/26/15 Stop Date: 12/20/15 Status: Completedmagnesium citrate 1.745 g/30 mL oral liquid 150 mL, Oral, ONETIME, # 300 mL, 0 Refill(s), Start Date: 08/01/16 18:28:00 [employer] Start Date: 08/01/16 Stop Date: 08/01/16 Status: CompletedMiraLax oral powder for reconstitution 17 gm=, Oral, Daily, dissolve in water before taking, X 31 days, # 527 gm, 0 Refill(s), Start Date: 08/01/16 18:28:00 [employer] Special Instructions: dissolve in water before taking Start Date: 08/01/16 Stop Date: 08/04/16 Status: Completedomeprazole 40 mg oral delayed release capsule 1 cap(s), Oral, Daily, # 30 cap(s), 0 Refill(s), Start Date: 07/25/16 13:18:00 [employer], Pharmacy: [place] [id number] Start Date: 07/25/16 Stop Date: 09/12/16 Status: Completedomeprazole 40 mg oral delayed release capsule 1 cap(s), Oral, Daily, # 30 cap(s), 0 Refill(s), Start Date: 09/10/16 10:56:00 [employer], Pharmacy: [facility] Start Date: 09/10/16 Status: Orderedondansetron 4 mg oral tablet, disintegrating 1 tab(s), Oral, TID, PRN nausea/vomiting, Start Date: 06/06/16 10:52:00 CDT Start Date: 06/06/16 Stop Date: 08/01/16 Status: CompletedoxyCODONE-acetaminophen 5 mg-325 mg oral tablet 1 tab(s), Oral, TID, PRN pain severe 8-10, X 7 days, # 21 tab(s), 0 Refill(s), Start Date: 06/30/16 9:59:27 [employer], Pharmacy: [facility] Start Date: 06/30/16 Stop Date: 07/07/16 Status: CompletedoxyCODONE-acetaminophen 5 mg-325 mg oral tablet 1 tab(s), Oral, TID, PRN pain severe 8-10, X 7 days, # 21 tab(s), 0 Refill(s), Start Date: 06/23/16 15:23:20 CDT, Pharmacy: [facility] Start Date: 06/23/16 Stop Date: 06/30/16 Status: CompletedoxyCODONE-acetaminophen 5 mg-325 mg oral tablet 2 tab(s), Oral, TID, PRN for pain, Only for severe pain 8-10 not to exceed 4000 mg acetaminophen per day, X 14 days, # 84 tab(s), 0 Refill(s), Start Date: 07/18/16 11:01:00 [employer], other reason (Rx) Special Instructions: Only for [...] 0 Refill(s), Start Date: 12:59:00 CDT, Pharmacy: [facility] Start Date: 04/11/16 Stop Date: 04/26/16 Status: CompletedoxyCODONE-acetaminophen 5 mg-325 mg oral tablet 1 tab(s), Oral, TID, PRN for pain, Only for severe pain 8-10, X 14 days, # 42 tab(s), 0 Refill(s), Start Date: 07/10/16 9:02:23 [employer], Pharmacy: [facility] Special Instructions: Only for severe pain 8-10 Start Date: 07/10/16 Stop Date: 07/18/16 Status: CompletedoxyCODONE-acetaminophen 5 mg-325 mg oral tablet 1 tab(s), Oral, q6hr interval, PRN pain severe 8-10, X 10 days, # 40 tab(s), 0 Refill(s), Start Date: 06/12/16 14:19:00 CDT, Pharmacy: [facility] Start Date: 06/12/16 Stop Date: 06/22/16 Status: CompletedoxyCODONE-acetaminophen 5 mg-325 mg oral tablet 1 tab(s), Oral, Daily, PRN for pain, Only for severe pain 8-10, X 7 days, # 7 tab(s), 0 Refill(s), Start Date: 07/07/16 8:39:00 [employer], Pharmacy: [facility] Special Instructions: Only for severe pain 8-10 Start Date: 07/07/16 Stop Date: 07/10/16 Status: CompletedoxyCODONE-acetaminophen 5 mg-325 mg oral tablet 2 tab(s), Oral, TID, PRN for pain, Only for severe pain 8-10 not to exceed 4000 mg acetaminophen per day, X 7 days, # 42 tab(s), 0 Refill(s), Start Date: 07/18/16 11:44:08 [employer], Pharmacy: [facility] [address] Special Instructions: Only for severe pain 8-10 not to exceed 4000 mg acetaminophen per day Start Date: 07/18/16 Stop Date: 07/25/16 Status: CompletedoxyCODONE-acetaminophen 5mg-325mg oral tablet 2 tab(s), Oral, TID, PRN for pain, Only for severe pain 8-10 not to exceed 4000 mg acetaminophen per day, X 7 days, # 42 tab(s), 0 Refill(s), Start Date: 07/25/16 12:04:23 [employer], Pharmacy: [facility] [address] Special Instructions: Only for severe pain 8-10 not to exceed 4000 mg acetaminophen per day Start Date: 07/25/16 Stop Date: 08/01/16 Status: Completedpantoprazole 40 mg oral delayed release tablet 1 tab(s), Oral, Daily, X 14 days, # 14 tab(s), 0 Refill(s), Start Date: 4:33:00 [employer] Start Date: 06/26/15 Stop Date: 07/10/15 Status: Completedpantoprazole 40 mg oral delayed release tablet 1 tab(s), Oral, Daily, # 30 tab(s), 0 Refill(s), Start Date: 06/06/16 12:51:00 CDT Start Date: 06/06/16 Stop Date: 06/12/16 Status: DiscontinuedPercocet 5/325 oral tablet 1 tab(s), Oral, TID, PRN for pain, X 7 days, # 21 tab(s), 0 Refill(s), Start Date: 09/16/16 8:47:54 [employer], Pharmacy: [facility] [address] Start Date: 09/16/16 Stop Date: 09/22/16 Status: CompletedPercocet 5/325 oral tablet 1 tab(s), Oral, q6hr, PRN for pain, # 30 tab(s), 0 Refill(s), Start Date: 9:49:26 CDT, Pharmacy: [facility] Start Date: 04/28/16 Stop Date: 05/28/16 Status: CompletedPercocet 5/325 oral tablet 1 tab(s), Oral, q6hr, PRN for pain, # 10 tab(s), 0 Refill(s), Start Date: 8:35:41 CDT, Pharmacy: [facility] Start Date: 04/18/16 Stop Date: 04/28/16 Status: DiscontinuedPercocet 5/325 oral tablet 1 tab(s), Oral, q4hr, PRN for pain, X 5 days, # 20 tab(s), 0 Refill(s), Start Date: 06/01/16 0:48:00 CDT Start Date: 06/01/16 Stop Date: 06/06/16 Status: CompletedPercocet 5/325 oral tablet 2 tab(s), Oral, q6hr, PRN for pain, X 3 days, # 15 tab(s), 0 Refill(s), Start Date: 06/26/15 4:33:00 [employer] Start Date: 06/26/15 Stop Date: 06/29/15 Status: CompletedPercocet 5/325 oral tablet 1 tab(s), Oral, q6hr interval, PRN for pain, X 7 days, # 28 tab(s), 0 Refill(s) , Start Date: 09/09/16 11:45:52 [employer], Pharmacy: [facility] Start Date: 09/09/16 Stop Date: 09/16/16 Status: CompletedPercocet 5/325 oral tablet 1 or 2 tabs, Oral, q4hr, PRN pain moderate 4-7, Do not work or drive with this medication, # 12 tab(s), 0 Refill(s), Start Date: 08/18/15 0:20:00 [employer] Special Instructions: Do not work or drive with this medication Start Date: 08/18/15 Stop Date: 08/21/15 Status: CompletedPercocet 5/325 oral tablet 1 tab(s), Oral, q6hr, PRN for pain, # 10 tab(s), 0 Refill(s), Start Date: 22:53:00 CDT, Pharmacy: [facility] Start Date: 04/17/16 Stop Date: 04/18/16 Status: DiscontinuedPercocet 5/325 oral tablet 1 tab(s), Oral, TID, PRN for pain, # 30 tab(s), 0 Refill(s), Start Date: 15:49:00 [employer] Start Date: 09/01/16 Stop Date: 09/09/16 Status: CompletedPercocet 5/325 oral tablet 1 tab(s), Oral, BID, PRN for pain, # 14 tab(s), 0 Refill(s), Start Date: 9:06:36 [employer], Pharmacy: [facility] [address] Start Date: 09/22/16 Stop Date: 09/29/16 Status: OrderedPhenergan 25 mg oral tablet 1 tab(s), Oral, q4hr, PRN for nausea/vomiting, X 5 days, # 30 tab(s), 0 Refill(s ), Start Date: 08/24/16 12:32:00 [employer] Start Date: 08/24/16 Stop Date: 08/29/16 Status: CompletedpredniSONE 20 mg oral tablet See Instructions, 2 tab(s) Oral Daily for 5 days then 1 tab daily for 5 days then 0.5 tab daily for 5 days, # 20 tab(s), 0 Refill(s), Start Date: 12/20/15 14 :03:00 CDT, Pharmacy: [facility] Special Instructions: 2 tab(s) Oral Daily for 5 days then 1 tab daily for 5 days then 0.5 tab daily for 5 days Start Date: 12/20/15 Stop Date: 01/28/16 Status: CompletedProAir HFA 90 mcg/inh inhalation aerosol 2 puff(s), Inhale, QID, PRN for wheezing, # 1 boxes, 2 Refill(s), Start Date: 10:48:39 CDT, Pharmacy: [facility] Start Date: 01/16/16 Status: OrderedProAir HFA 90 mcg/inh inhalation aerosol 2 puff(s), Inhale, QID, PRN for wheezing, # 1 boxes, 2 Refill(s), Start Date: 13:59:00 [employer], Pharmacy: [facility] Start Date: 10/17/15 Stop Date: [...] 0 Refill(s), Start Date: 08/02/16 21 :58:00 [employer] Special Instructions: Dispense Start Date: 08/02/16 Stop Date: 08/19/16 Status: Completedpromethazine 25 mg oral tablet 1 tab(s), Oral, q6hr, # 12 tab(s), 0 Refill(s), Start Date: 08/02/16 21:56:00 [employer] Start Date: 08/02/16 Stop Date: 08/19/16 Status: Completedpromethazine 25 mg oral tablet 1 tab(s), Oral, q4hr, PRN for nausea/vomiting, # 60 tab(s), 0 Refill(s), Start Date: 08/31/15 14:03:00 [employer], Pharmacy: [facility] [address] Start Date: 08/31/15 Stop Date: 11/14/15 Status: DiscontinuedSingulair 10 mg oral tablet 1 tab(s), Oral, qPM, # 30 tab(s), 5 Refill(s), Start Date: 12/20/15 14:03:00 CDT , Pharmacy: [facility] Start Date: 12/20/15 Stop Date: 04/26/16 Status: CompletedSymbicort 80 mcg-4.5 mcg/inh inhalation aerosol 2 puff(s), Inhale, BID, # 7 gm, 11 Refill(s), Start Date: 11/14/15 13:45:00 CDT , Pharmacy: [facility] Start Date: 11/14/15 Stop Date: 04/26/16 Status: CompletedtraMADol 50 mg oral tablet 1 tab(s), Oral, q4hr interval, PRN as needed for pain, X 3 days, # 18 tab(s), 0 Refill(s), Start Date: 08/24/16 12:32:00 [employer] Start Date: 08/24/16 Stop Date: 08/27/16 Status: CompletedtraMADol 50 mg oral tablet 1 tab(s), Oral, q4hr, PRN for pain, # 10 tab(s), 0 Refill(s), Start Date: 21:27:00 [employer] Start Date: 08/09/16 Stop Date: 08/19/16 Status: CompletedtraMADol 50 mg oral tablet 1 tab(s), Oral, q4hr, PRN as needed for pain, Dispense, # 4 tab(s), 0 Refill(s) , Start Date: 08/02/16 21:58:00 [employer] Special Instructions: Dispense Start Date: 08/02/16 Stop Date: 08/19/16 Status: CompletedtraMADol 50 mg oral tablet 1 tab(s), Oral, q4hr interval, PRN as needed for pain, # 18 tab(s), 0 Refill(s) , Start Date: 08/02/16 21:56:00 [employer] Start Date: 08/02/16 Stop Date: 08/19/16 Status: CompletedUltram 50 mg oral tablet 1 or2 tab(s), Oral, q6hr interval, PRN for pain, Not work or drive with this medication, # 20 tab(s), 0 Refill(s), Start Date: 08/19/16 18:37:00 [employer] Special Instructions: Not work or drive with this medication Start Date: 08/19/16 Stop Date: 09/01/16 Status: CompletedZofran 4 mg oral tablet 1 tab(s), Oral, TID, PRN nausea/vomiting, # 10 tab(s), 0 Refill(s), Start Date: 08/09/16 21:28:00 [employer] Start Date: 08/09/16 Stop Date: 08/19/16 Status: CompletedZofran ODT 4 mg oral tablet, disintegrating 1 tab(s), Oral, q4hr, PRN nausea/vomiting, X 3 days, # 18 tab(s), 0 Refill(s), Start Date: 06/01/16 0:48:00 CDT Start Date: 06/01/16 Stop Date: 10/12/16 Status: CompletedZofran ODT 4 mg oral tablet, disintegrating 1 tab(s), Oral, q6hr, PRN nausea, X 3 days, # 10 tab(s), 0 Refill(s), Start Date : 06/26/15 4:33:00 [employer] Start Date: 06/26/15 Stop Date: 06/29/15 Status: CompletedZofran ODT 4 mg oral tablet, disintegrating 1 tab(s), Oral, TID, # 9 tab(s), 0 Refill(s), Start Date: 09/09/16 11:45:51 [employer] , Pharmacy: [facility] Start Date: 09/09/16 Stop Date: 09/12/16 Status: CompletedZofran ODT 4 mg oral tablet, disintegrating 1 tab(s), Oral, As Indicated, PRN nausea/vomiting, # 10 tab(s), 0 Refill(s), Start Date: 08/18/15 0:19:00 [employer] Start Date: 08/18/15 Stop Date: 08/31/15 Status: DiscontinuedZofran ODT 4 mg oral tablet, disintegrating 1 tab(s), Oral, QID, X 3 days, # 30 tab(s), 0 Refill(s), Start Date: 08/28/16 18 :51:00 [employer] Start Date: 08/28/16 Stop Date: 09/09/16 Status: CompletedZofran ODT 4 mg oral tablet, disintegrating 1 tab(s), Oral, q4hr, PRN nausea/vomiting, X 5 days, # 30 tab(s), 0 Refill(s), Start Date: 08/18/15 14:15:00 [employer] Start Date: 08/18/15 Stop Date: 08/23/15 Status: CompletedZofran ODT 4 mg oral tablet, disintegrating 1 tab(s), Oral, TID, PRN nausea/vomiting, # 10 tab(s), 0 Refill(s), Start Date: 09/12/16 12:24:00 [employer] Start Date: 09/12/16 Status: OrderedZyrTEC 10 mg oral tablet 1 tab(s), Oral, Daily, # 30 tab(s), 11 Refill(s), Start Date: 11/14/15 13:45:00 CDT, Pharmacy: [facility] Start Date: 11/14/15 Stop Date: 04/26/16 Status: Completed Results No data available for this section Immunizations Vaccine Date Refusal Reason tetanus/diphth/pertuss (Tdap) adult/adol 07/28/16 tetanus/diphth/pertuss (Tdap) adult/adol 04/27/16 Patient Refuses Procedures Procedure Date Related Diagnosis Body Site Esophagogastroduodenoscopy1 09/10/16 Tubal Ligation Post Partum2 04/27/16 Dilation and curettage of uterus 2012 Dilation and curettage of uterus 2000 1auto-populated from documented surgical [id number] from documented surgical case Social History No data available for this section Assessment and Plan No data available for this section
--- OUTSIDE RECORDS SUMMARY | 2016-11-03 00:09 | XMS REPORT | Summary of Care ---
:1990 Author Organization [facility] Address [address] [place] [id number] Care Team Providers Name Role Phone Alta Miller Primary Care Physician Encounter Date(s): 10/13/16 - 10/13/[address] [id number]- [facility] Discharge Diagnosis: Chronic abdominal pain Discharge Disposition: Discharged to Home or Self Care Attending Physician: Lisa Levy MD Admitting Physician: Lisa Levy MD Vital Signs Most recent to oldest 1 2 3 [Reference Range]: Temperature Temporal Artery 36.6 DegC [36.0-38.0 DegC] (10/13/16 3:47 PM) Heart Rate Monitored [60-100 107 bpm 90 bpm 103 bpm bpm] *HI* (10/13/16 4:44 PM) *HI* (10/13/16 5:12 PM) (10/13/16 3:47 PM) Respiratory Rate [12-20 br/min] 18 br/min 18 br/min 18 br/min (10/13/16 5:12 PM) (10/13/16 4:45 PM) (10/13/16 4:45 PM) SpO2 [90-100 %] 98 % 97 % 96 % (10/13/16 5:12 PM) (10/13/16 4:44 PM) (10/13/16 3:47 PM) SpO2 Location Right hand (10/13/16 4:44 PM) Blood Pressure [90-130/60-90 110/65mmHg 124/76mmHg 125/59mmHg mmHg] (10/13/16 5:12 PM) (10/13/16 4:44 PM) (10/13/16 3:47 PM) Most recent to oldest [Reference Range]: 1 2 3 Weight Estimated 100 kg (10/13/16 3:47 PM) Weight Dosing 100.00 kg1 (10/13/16 3:49 PM) 1Result Comment: This result was because the dosing weight was either not entered or it is>30 days old. This result is based off: Weight Estimated October 13, 2016 15:47:00 U.S. REPRESENTATIVE by Cyndy Howell RN Problem List Condition Effective Dates Status [...] QID, 0 Refill(s), Start Date: 08/31/15 13:37:00 U.S. REPRESENTATIVE Start Date: 08/31/15 Stop Date: 10/26/15 Status: CompletedCarafate 1 g oral tablet 1 tab(s), Oral, QID, # 120 tab(s), 0 Refill(s), Start Date: 07/25/16 13:18:00 U.S. REPRESENTATIVE, Pharmacy: [id number] Start Date: 07/25/16 Status: OrderedCarafate 1 g oral tablet 1 tab(s), Oral, QIDACHS, # 56 tab(s), 0 Refill(s), Start Date: 06/06/16 12:51: 00 CDT Start Date: 06/06/16 Stop Date: 06/12/16 Status: DiscontinuedCarafate 1 g oral tablet 1 tab(s), Oral, QIDACHS, X 14 days, # 56 tab(s), 0 Refill(s), Start Date: 4:34:00 U.S. REPRESENTATIVE Start Date: 06/26/15 Stop Date: 07/10/15 Status: CompletedCarafate 1 g oral tablet 1 tab(s), Oral, QID, # 28 tab(s), 0 Refill(s), Start Date: 10/26/15 13:03:00 U.S. REPRESENTATIVE Start Date: 10/26/15 Stop Date: 11/14/15 Status: DiscontinuedCeleXA 10 mg oral tablet 2 tab(s), Oral, Daily, 0 Refill(s), Start Date: 08/31/15 13:36:00 U.S. REPRESENTATIVE Start Date: 08/31/15 Stop Date: 07/14/16 Status: DiscontinuedCeleXA 20 mg oral tablet 1 tab(s), Oral, Daily, # 30 tab(s), 2 Refill(s), Start Date: 07/14/16 12:54:00 U.S. REPRESENTATIVE, Pharmacy: [facility] Start Date: 07/14/16 Status: Orderedcetirizine 5 mg oral tablet 1 tab(s), Oral, Daily, # 10 tab(s), 0 Refill(s), Start Date: 09/01/16 15:51:00 U.S. REPRESENTATIVE, Pharmacy: [facility] Start Date: 09/01/16 Stop Date: 09/12/16 Status: CompletedClassic oral tablet 1 tab(s), Oral, Daily, # 30 tab(s), 11 Refill(s), Start Date: 08/31/15 14:03:00 U.S. REPRESENTATIVE, Pharmacy: [facility] Start Date: 08/31/15 Stop Date: 08/01/16 Status: Completeddicyclomine 20 mg oral tablet 1 tab(s), Oral, QID, PRN abdominal pain, # 40 tab(s), 0 Refill(s), Start Date: 08/06/16 0:16:00 U.S. REPRESENTATIVE Start Date: 08/06/16 Stop Date: 08/19/16 Status: Completeddicyclomine 20 mg oral tablet 1 tab(s), Oral, QID, PRN abdominal pain, # 40 tab(s), 0 Refill(s), Start Date: 10/13/16 17:43:00 U.S. REPRESENTATIVE Start Date: 10/13/16 Stop Date: 10/23/16 Status: OrderedDilaudid 2 mg oral tablet 1 tab(s), Oral, q8hr interval, PRN for pain, # 30 tab(s), 0 Refill(s), Start Date: 08/28/16 18:51:00 U.S. REPRESENTATIVE Start Date: 08/28/16 Stop Date: 09/09/16 Status: Completedferrous sulfate 325 mg (65 mg elemental iron) oral tablet 1 tab(s), Oral, Daily, # 90 tab(s), 2 Refill(s), Start Date: 01/16/16 13:33:00 CDT, Pharmacy: [place] [id number] Start Date: 01/16/16 Stop Date: 04/28/16 Status: Discontinuedferrous sulfate 325 mg (65 mg elemental iron) oral tablet 1 tab(s), Oral, Daily, # 90 tab(s), 0 Refill(s), Start Date: 01/16/16 13:32:00 CDT Start Date: 01/16/16 Stop Date: 01/16/16 Status: DiscontinuedFlagyl 500 mg oral tablet 1 tab(s), Oral, q12hr, # 14 tab(s), 0 Refill(s), Start Date: 02/23/16 23:20:00 CDT, Pharmacy: [place] [id number] Start Date: 02/23/16 Stop Date: 03/12/16 Status: Discontinuedibuprofen 600 mg oral tablet 1 tab(s), Oral, q6hr, PRN pain mild 1-3, # 30 tab(s), 0 Refill(s), Start Date: 04/28/16 9:49:00 CDT, Pharmacy: [place] [facility] [id number] Start Date: 04/28/16 Stop Date: 08/01/16 Status: CompletedMacrobid 100 mg oral capsule 1 cap(s), Oral, BID, # 14 cap(s), 0 Refill(s), Start Date: 02/04/16 20:15:00 CDT , Pharmacy: [place] [id number] Start Date: 02/04/16 Stop Date: 02/06/16 Status: DiscontinuedMacrobid 100 mg oral capsule 1 cap(s), Oral, BID, # 14 cap(s), 0 Refill(s), Start Date: 11/26/15 15:08:00 CDT , Pharmacy: [place] [id number] Start Date: 11/26/15 Stop Date: 12/20/15 Status: Completedmagnesium citrate 1.745 g/30 mL oral liquid 150 mL, Oral, ONETIME, # 300 mL, 0 Refill(s), Start Date: 08/01/16 18:28:00 U.S. REPRESENTATIVE Start Date: 08/01/16 Stop Date: 08/01/16 Status: CompletedMiraLax oral powder for reconstitution 17 gm=, Oral, Daily, dissolve in water before taking, X 31 days, # 527 gm, 0 Refill(s), Start Date: 08/01/16 18:28:00 U.S. REPRESENTATIVE Special Instructions: dissolve in water before taking Start Date: 08/01/16 Stop Date: 08/04/16 Status: Completedomeprazole 40 mg oral delayed release capsule 1 cap(s), Oral, Daily, # 30 cap(s), 0 Refill(s), Start Date: 07/25/16 13:18:00 U.S. REPRESENTATIVE, Pharmacy: [facility] Start Date: 07/25/16 Stop Date: 09/12/16 Status: Completedomeprazole 40 mg oral delayed release capsule 1 cap(s), Oral, Daily, # 30 cap(s), 0 Refill(s), Start Date: 09/10/16 10:56:00 U.S. REPRESENTATIVE, Pharmacy: [facility] Start Date: 09/10/16 Status: Orderedondansetron 4 mg oral tablet, disintegrating 1 tab(s), Oral, TID, PRN nausea/vomiting, Start Date: 06/06/16 10:52:00 CDT Start Date: 06/06/16 Stop Date: 08/01/16 Status: CompletedoxyCODONE-acetaminophen 5 mg-325 mg oral tablet 1 tab(s), Oral, TID, PRN pain severe 8-10, X 7 days, # 21 tab(s), 0 Refill(s), Start Date: 06/30/16 9:59:27 U.S. REPRESENTATIVE, Pharmacy: [facility] Start Date: 06/30/16 Stop Date: 07/07/16 Status: CompletedoxyCODONE-acetaminophen 5 mg-325 mg oral tablet 1 tab(s), Oral, TID, PRN pain severe 8-10, X 7 days, # 21 tab(s), 0 Refill(s), Start Date: 06/23/16 15:23:20 CDT, Pharmacy: [facility] Start Date: 06/23/16 Stop Date: 06/30/16 Status: CompletedoxyCODONE-acetaminophen 5 mg-325 mg oral tablet 2 tab(s), Oral, TID, PRN for pain, Only for severe pain 8-10 not to exceed 4000 mg acetaminophen per day, X 14 days, # 84 tab(s), 0 Refill(s), Start Date: 07/18/16 11:01:00 U.S. REPRESENTATIVE, other reason (Rx) Special Instructions: Only for [...] 0 Refill(s), Start Date: 12:59:00 CDT, Pharmacy: [facility] Start Date: 04/11/16 Stop Date: 04/26/16 Status: CompletedoxyCODONE-acetaminophen 5 mg-325 mg oral tablet 1 tab(s), Oral, TID, PRN for pain, Only for severe pain 8-10, X 14 days, # 42 tab(s), 0 Refill(s), Start Date: 07/10/16 9:02:23 U.S. REPRESENTATIVE, Pharmacy: [facility] Special Instructions: Only for severe pain 8-10 Start Date: 07/10/16 Stop Date: 07/18/16 Status: CompletedoxyCODONE-acetaminophen 5 mg-325 mg oral tablet 1 tab(s), Oral, q6hr interval, PRN pain severe 8-10, X 10 days, # 40 tab(s), 0 Refill(s), Start Date: 06/12/16 14:19:00 CDT, Pharmacy: [facility] Start Date: 06/12/16 Stop Date: 06/22/16 Status: CompletedoxyCODONE-acetaminophen 5 mg-325 mg oral tablet 1 tab(s), Oral, Daily, PRN for pain, Only for severe pain 8-10, X 7 days, # 7 tab(s), 0 Refill(s), Start Date: 07/07/16 8:39:00 U.S. REPRESENTATIVE, Pharmacy: [facility] Special Instructions: Only for severe pain 8-10 Start Date: 07/07/16 Stop Date: 07/10/16 Status: CompletedoxyCODONE-acetaminophen 5 mg-325 mg oral tablet 2 tab(s), Oral, TID, PRN for pain, Only for severe pain 8-10 not to exceed 4000 mg acetaminophen per day, X 7 days, # 42 tab(s), 0 Refill(s), Start Date: 07/18/16 11:44:08 U.S. REPRESENTATIVE, Pharmacy: [facility] Special Instructions: Only for severe pain 8-10 not to exceed 4000 mg acetaminophen per day Start Date: 07/18/16 Stop Date: 07/25/16 Status: CompletedoxyCODONE-acetaminophen 5mg-325mg oral tablet 2 tab(s), Oral, TID, PRN for pain, Only for severe pain 8-10 not to exceed 4000 mg acetaminophen per day, X 7 days, # 42 tab(s), 0 Refill(s), Start Date: 07/25/16 12:04:23 U.S. REPRESENTATIVE, Pharmacy: [facility] Special Instructions: Only for severe pain 8-10 not to exceed 4000 mg acetaminophen per day Start Date: 07/25/16 Stop Date: 08/01/16 Status: Completedpantoprazole 40 mg oral delayed release tablet 1 tab(s), Oral, Daily, X 14 days, # 14 tab(s), 0 Refill(s), Start Date: 4:33:00 U.S. REPRESENTATIVE Start Date: 06/26/15 Stop Date: 07/10/15 Status: [...] tab(s), 0 Refill(s), Start Date: 10/11/16 23:52:00 U.S. REPRESENTATIVE Special Instructions: Do not work or drive with this medication Start Date: 10/11/16 Stop Date: 10/12/16 Status: CompletedPercocet 5/325 oral tablet 1 tab(s), Oral, TID, PRN for pain, X 7 days, # 21 tab(s), 0 Refill(s), Start Date: 09/16/16 8:47:54 U.S. REPRESENTATIVE, Pharmacy: [place] [id number] Start Date: 09/16/16 Stop Date: 09/22/16 Status: CompletedPercocet 5/325 oral tablet 1 tab(s), Oral, q6hr, PRN for pain, # 30 tab(s), 0 Refill(s), Start Date: 9:49:26 CDT, Pharmacy: [place] [id number] Start Date: 04/28/16 Stop Date: 05/28/16 Status: CompletedPercocet 5/325 oral tablet 1 tab(s), Oral, Daily, PRN for pain, # 3 tab(s), 0 Refill(s), Start Date: 9:47:00 U.S. REPRESENTATIVE, Pharmacy: [place] [id number] Start Date: 09/30/16 Stop Date: 10/13/16 Status: CompletedPercocet 5/325 oral tablet 1 tab(s), Oral, q6hr, PRN for pain, # 10 tab(s), 0 Refill(s), Start Date: 8:35:41 CDT, Pharmacy: [place] [id number] Start Date: 04/18/16 Stop Date: 04/28/16 Status: DiscontinuedPercocet 5/325 oral tablet 1 tab(s), Oral, q4hr, PRN for pain, X 5 days, # 20 tab(s), 0 Refill(s), Start Date: 06/01/16 0:48:00 CDT Start Date: 06/01/16 Stop Date: 06/06/16 Status: CompletedPercocet 5/325 oral tablet 2 tab(s), Oral, q6hr, PRN for pain, X 3 days, # 15 tab(s), 0 Refill(s), Start Date: 06/26/15 4:33:00 U.S. REPRESENTATIVE Start Date: 06/26/15 Stop Date: 06/29/15 Status: CompletedPercocet 5/325 oral tablet 1 tab(s), Oral, q6hr interval, PRN for pain, X 7 days, # 28 tab(s), 0 Refill(s) , Start Date: 09/09/16 11:45:52 U.S. REPRESENTATIVE, Pharmacy: [facility] Start Date: 09/09/16 Stop Date: 09/16/16 Status: CompletedPercocet 5/325 oral tablet 1 or 2 tabs, Oral, q4hr, PRN pain moderate 4-7, Do not work or drive with this medication, # 12 tab(s), 0 Refill(s), Start Date: 08/18/15 0:20:00 U.S. REPRESENTATIVE Special Instructions: Do not work or drive with this medication Start Date: 08/18/15 Stop Date: 08/21/15 Status: CompletedPercocet 5/325 oral tablet 1 or 2 tabs, Oral, q4hr, PRN pain moderate 4-7, Do not work or drive with this medication, # 12 tab(s), 0 Refill(s), Start Date: 09/27/16 16:08:00 U.S. REPRESENTATIVE Special Instructions: Do not work or drive with this medication Start Date: 09/27/16 Stop Date: 09/29/16 Status: CompletedPercocet 5/325 oral tablet 1 tab(s), Oral, q4hr, PRN for pain, # 12 tab(s), 0 Refill(s), Start Date: 11:11:48 U.S. REPRESENTATIVE Start Date: 10/06/16 Status: OrderedPercocet 5/325 oral tablet 1 tab(s), Oral, q4hr, PRN for pain, # 12 tab(s), 0 Refill(s), Start Date: 13:55:00 U.S. REPRESENTATIVE Start Date: 10/03/16 Stop Date: 10/06/16 Status: CompletedPercocet 5/325 oral tablet 1 tab(s), Oral, q6hr, PRN for pain, # 10 tab(s), 0 Refill(s), Start Date: 22:53:00 CDT, Pharmacy: [facility] Start Date: 04/17/16 Stop Date: 04/18/16 Status: DiscontinuedPercocet 5/325 oral tablet 1 tab(s), Oral, TID, PRN for pain, # 30 tab(s), 0 Refill(s), Start Date: 15:49:00 U.S. REPRESENTATIVE Start Date: 09/01/16 Stop Date: 09/09/16 Status: CompletedPercocet 5/325 oral tablet 1 tab(s), Oral, BID, PRN for pain, X 7 days, # 14 tab(s), 0 Refill(s), Start Date: 09/22/16 9:06:36 U.S. REPRESENTATIVE, Pharmacy: [facility] Start Date: 09/22/16 Stop Date: 09/30/16 Status: CompletedPhenergan 25 mg oral tablet 1 tab(s), Oral, q4hr, PRN for nausea/vomiting, X 5 days, # 30 tab(s), 0 Refill(s ), Start Date: 08/24/16 12:32:00 U.S. REPRESENTATIVE Start Date: 08/24/16 Stop Date: 08/29/16 Status: CompletedpredniSONE 20 mg oral tablet See Instructions, 2 tab(s) Oral Daily for 5 days then 1 tab daily for 5 days then 0.5 tab daily for 5 days, # 20 tab(s), 0 Refill(s), Start Date: 12/20/15 14 :03:00 CDT, Pharmacy: [facility] Special Instructions: 2 tab(s) Oral Daily for 5 days then 1 tab daily for 5 days then 0.5 tab daily for 5 days Start Date: 12/20/15 Stop Date: 01/28/16 Status: CompletedProAir HFA 90 mcg/inh inhalation aerosol 2 puff(s), Inhale, QID, PRN for wheezing, # 1 boxes, 2 Refill(s), Start Date: 10:48:39 CDT, Pharmacy: [facility] Start Date: 01/16/16 Status: OrderedProAir HFA 90 mcg/inh inhalation aerosol 2 puff(s), Inhale, QID, PRN for wheezing, # 1 boxes, 2 Refill(s), Start Date: 13:59:00 U.S. REPRESENTATIVE, Pharmacy: [facility] Start Date: 10/17/15 Stop [...] 0 Refill(s), Start Date: 08/02/16 21 :58:00 U.S. REPRESENTATIVE Special Instructions: Dispense Start Date: 08/02/16 Stop Date: 08/19/16 Status: Completedpromethazine 25 mg oral tablet 1 tab(s), Oral, q6hr, # 12 tab(s), 0 Refill(s), Start Date: 08/02/16 21:56:00 U.S. REPRESENTATIVE Start Date: 08/02/16 Stop Date: 08/19/16 Status: Completedpromethazine 25 mg oral tablet 1 tab(s), Oral, q4hr, PRN for nausea/vomiting, # 60 tab(s), 0 Refill(s), Start Date: 08/31/15 14:03:00 U.S. REPRESENTATIVE, Pharmacy: [facility] Start Date: 08/31/15 Stop Date: 11/14/15 Status: DiscontinuedSingulair 10 mg oral tablet 1 tab(s), Oral, qPM, # 30 tab(s), 5 Refill(s), Start Date: 12/20/15 14:03:00 CDT , Pharmacy: [facility] Start Date: 12/20/15 Stop Date: 04/26/16 Status: CompletedSymbicort 80 mcg-4.5 mcg/inh inhalation aerosol 2 puff(s), Inhale, BID, # 7 gm, 11 Refill(s), Start Date: 11/14/15 13:45:00 CDT , Pharmacy: [facility] Start Date: 11/14/15 Stop Date: 04/26/16 Status: CompletedtraMADol 50 mg oral tablet 1 tab(s), Oral, q4hr interval, PRN as needed for pain, X 3 days, # 18 tab(s), 0 Refill(s), Start Date: 08/24/16 12:32:00 U.S. REPRESENTATIVE Start Date: 08/24/16 Stop Date: 08/27/16 Status: CompletedtraMADol 50 mg oral tablet 1 tab(s), Oral, q4hr, PRN for pain, # 10 tab(s), 0 Refill(s), Start Date: 21:27:00 U.S. REPRESENTATIVE Start Date: 08/09/16 Stop Date: 08/19/16 Status: CompletedtraMADol 50 mg oral tablet 1 tab(s), Oral, q4hr, PRN as needed for pain, Dispense, # 4 tab(s), 0 Refill(s) , Start Date: 08/02/16 21:58:00 U.S. REPRESENTATIVE Special Instructions: Dispense Start Date: 08/02/16 Stop Date: 08/19/16 Status: CompletedtraMADol 50 mg oral tablet 1 tab(s), Oral, q4hr interval, PRN as needed for pain, # 18 tab(s), 0 Refill(s) , Start Date: 08/02/16 21:56:00 U.S. REPRESENTATIVE Start Date: 08/02/16 Stop Date: 08/19/16 Status: CompletedUltram 50 mg oral tablet 1 or2 tab(s), Oral, q6hr interval, PRN for pain, Not work or drive with this medication, # 20 tab(s), 0 Refill(s), Start Date: 08/19/16 18:37:00 U.S. REPRESENTATIVE Special Instructions: Not work or drive with this medication Start Date: 08/19/16 Stop Date: 09/01/16 Status: CompletedZofran 4 mg oral tablet 1 tab(s), Oral, TID, PRN nausea/vomiting, # 10 tab(s), 0 Refill(s), Start Date: 08/09/16 21:28:00 U.S. REPRESENTATIVE Start Date: 08/09/16 Stop Date: 08/19/16 Status: [...] 0 Refill(s), Start Date : 06/26/15 4:33:00 U.S. REPRESENTATIVE Start Date: 06/26/15 Stop Date: 06/29/15 Status: CompletedZofran ODT 4 mg oral tablet, disintegrating 1 tab(s), Oral, TID, # 9 tab(s), 0 Refill(s), Start Date: 09/09/16 11:45:51 U.S. REPRESENTATIVE , Pharmacy: [facility] Start Date: 09/09/16 Stop Date: 09/12/16 Status: CompletedZofran ODT 4 mg oral tablet, disintegrating 1 tab(s), Oral, As Indicated, PRN nausea/vomiting, # 10 tab(s), 0 Refill(s), Start Date: 08/18/15 0:19:00 U.S. REPRESENTATIVE Start Date: 08/18/15 Stop Date: 08/31/15 Status: DiscontinuedZofran ODT 4 mg oral tablet, disintegrating 1 tab(s), Oral, q8hr interval, PRN nausea/vomiting, # 12 tab(s), 0 Refill(s), Start Date: 09/27/16 16:08:00 U.S. REPRESENTATIVE Start Date: 09/27/16 Status: OrderedZofran ODT 4 mg oral tablet, disintegrating 1 tab(s), Oral, QID, X 3 days, # 30 tab(s), 0 Refill(s), Start Date: 08/28/16 18 :51:00 U.S. REPRESENTATIVE Start Date: 08/28/16 Stop Date: 09/09/16 Status: CompletedZofran ODT 4 mg oral tablet, disintegrating 1 tab(s), Oral, q4hr, PRN nausea/vomiting, X 5 days, # 30 tab(s), 0 Refill(s), Start Date: 08/18/15 14:15:00 U.S. REPRESENTATIVE Start Date: 08/18/15 Stop Date: 08/23/15 Status: CompletedZofran ODT 4 mg oral tablet, disintegrating 1 tab(s), Oral, TID, PRN nausea/vomiting, # 10 tab(s), 0 Refill(s), Start Date: 09/12/16 12:24:00 U.S. REPRESENTATIVE Start Date: 09/12/16 Stop Date: 10/01/16 Status: CompletedZyrTEC 10 mg oral tablet 1 tab(s), Oral, Daily, # 30 tab(s), 11 Refill(s), Start Date: 11/14/15 13:45:00 CDT, Pharmacy: [facility] Start Date: 11/14/15 Stop Date: 04/26/16 Status: Completed Results Patient Viewable Results Most recent to oldest [Reference Range]: 1 2 WBC [4.8-10.8 thou/mm3] 6.7 thou/mm3 (10/13/16 4:39 PM) RBC [4.20-5.40 Mil/mm3] 4.35 Mil/mm3 (10/13/16 4:39 PM) Hgb [12.0-16.0 g/dL] 13.1 g/dL (10/13/16 4:39 PM) Hct [37.0-47.0 %] 39.5 % (10/13/16 4:39 PM) MCV [80.0-94.0 fL] 90.8 fL (10/13/16 4:39 PM) MCH [25.0-38.0 pg/cell] 30.1 pg/cell (10/13/16 4:39 PM) MCHC [31.0-37.0 g/dL] 33.2 g/dL (10/13/16 4:39 PM) RDW [1.0-48.0 fL] 41.8 fL (10/13/16 4:39 PM) Platelet [130-400 thou/mm3] 292 thou/mm3 (10/13/16 4:39 PM) Neutrophils % Auto [50.0-75.0 %] 55.5 % (10/13/16 4:39 PM) Immature Granulocyte Auto [0.1-2.0 %] 0.3 % (10/13/16 4:39 PM) Lymphocytes % Auto [15.0-41.0 %] 32.9 % (10/13/16 4:39 PM) Monocytes % Auto [2.0-10.0 %] 7.4 % (10/13/16 4:39 PM) Eosinophils % Auto [0.0-6.0 %] 3.6 % (10/13/16 4:39 PM) Basophil % Auto [0.0-1.0 %] 0.3 % (10/13/16 4:39 PM) Neutrophils Absolute [1.5-5.9 thou/mm3] 3.7 thou/mm3 (10/13/16 4:39 PM) Immature Gran Absolute [0.01-0.03 thou/mm3] 0.02 thou/mm3 (10/13/16 4:39 PM) Lymphocytes Absolute [1.5-4.0 thou/mm3] 2.2 thou/mm3 (10/13/16 4:39 PM) Monocytes Absolute [0.0-0.9 thou/mm3] 0.5 thou/mm3 (10/13/16 4:39 PM) Eosinophil Absolute [0.0-0.7 thou/mm3] 0.2 thou/mm3 (10/13/16 4:39 PM) Basophil Absolute [0.0-0.2 thou/mm3] 0.0 thou/mm3 (10/13/16 4:39 PM) Sodium Lvl [135-144 mEq/L] 139 mEq/L (10/13/16 4:39 PM) Potassium Lvl [3.3-4.8 mEq/L] 4.0 mEq/L (10/13/16 4:39 PM) Chloride Lvl [98-107 mEq/L] 102 mEq/L (10/13/16 4:39 PM) Bicarbonate Lvl [22-30 mmol/L] 28 mmol/L (10/13/16 4:39 PM) Anion Gap [10.0-20.0] 13.0 (10/13/16 4:39 PM) Glucose Lvl [70-108 mg/dL] 103 mg/dL (10/13/16 4:39 PM) BUN [7-21 mg/dL] 14 mg/dL (10/13/16 4:39 PM) Creatinine Lvl [0.50-1.20 mg/dL] 0.63 mg/dL (10/13/16 4:39 PM) BUN/Creat Ratio 22.2 *NA* (10/13/16 4:39 PM) eGFR AA [>=60] >60 (10/13/16 4:39 PM) eGFR SIVA [>=60] >60 (10/13/16 4:39 PM) Calcium Lvl [8.6-10.2 mg/dL] 8.9 mg/dL (10/13/16 4:39 PM) Total Protein [6.4-8.3 g/dL] 6.5 g/dL (10/13/16 4:39 PM) Albumin Lvl [3.5-5.2 g/dL] 3.9 g/dL (10/13/16 4:39 PM) Globulin 2.6 *NA* (10/13/16 4:39 PM) A/G Ratio [0.9-1.8] 1.5 (10/13/16 4:39 PM) Bilirubin Total [0.1-1.0 mg/dL] 0.2 mg/dL (10/13/16 4:39 PM) Alkaline Phosphatase [39-129 unit/L] 84 unit/L (10/13/16 4:39 PM) AST [0-39 unit/L] 15 unit/L (10/13/16 4:39 PM) ALT [0-40 unit/L] 11 unit/L (10/13/16 4:39 PM) Lipase Lvl [13-60 unit/L] 93 unit/L *HI* (10/13/16 4:39 PM) Estimated Creatinine Clearance 164.20 mL/min 175.33 mL/min (10/13/16 5:22 PM) (10/13/16 3:49 PM) Immunizations Vaccine Date Refusal Reason tetanus/diphth/pertuss (Tdap) adult/adol 07/28/16 tetanus/diphth/pertuss (Tdap) adult/adol 04/27/16 Patient Refuses Procedures Procedure Date Related Diagnosis Body Site Cholecystectomy Laparoscopic1 10/03/16 Esophagogastroduodenoscopy2 09/10/16 Tubal Ligation Post Partum3 04/27/16 Colonoscopy 2013 Dilation and curettage of uterus 2012 Dilation and curettage of uterus 2000 1auto-populated from documented surgical [id number] from documented surgical [id number] from documented surgical case Social History No data available for this section Assessment and Plan No data available for this section
--- OUTSIDE RECORDS SUMMARY | 2016-11-03 00:10 | XMS REPORT | Summary of Care ---
:1990 Author Organization [facility] Address [address] [place] [phone]- Care Team Providers Name Role Phone Physician, Primary Care Primary Care Physician Unavailable Encounter Date(s): 01/16/16 - 01/16/[address] [address] [place] Final: related exhaustion and fatigue, third trimester [...] Maternal tobacco use(Confirmed) Active Pancreatitis(Confirmed) Active (Confirmed) 2010 Resolved (Confirmed) 2011 Resolved (Confirmed) 05/25/12 - 02/22/13 Resolved (Confirmed) 07/07/14 - 03/29/15 Resolved Allergies, Adverse Reactions, Alerts Substance Reaction Severity Status codeine Active morphine Rash Active Reglan Active Vicodin Rash Active Medications albuterol CFC free 90 mcg/inh inhalation aerosol puff(s), Inhale, QID, 0 Refill(s), Start Date: 08/31/15 13:37:00 OPEN DEVELOPER OPERATOR Start Date: 08/31/15 Stop Date: 10/26/15 Status: CompletedCarafate 1 g oral tablet 1 tab(s), Oral, QIDACHS, X 14 days, # 56 tab(s), 0 Refill(s), Start Date: 4:34:00 OPEN DEVELOPER OPERATOR Start Date: 06/26/15 Stop Date: 07/10/15 Status: CompletedCarafate 1 g oral tablet 1 tab(s), Oral, QID, # 28 tab(s), 0 Refill(s), Start Date: 10/26/15 13:03:00 OPEN DEVELOPER OPERATOR Start Date: 10/26/15 Stop Date: 11/14/15 Status: DiscontinuedCeleXA 10 mg oral tablet 2 tab(s), Oral, Daily, 0 Refill(s), Start Date: 08/31/15 13:36:00 OPEN DEVELOPER OPERATOR Start Date: 08/31/15 Status: OrderedClassic oral tablet 1 tab(s), Oral, Daily, # 30 tab(s), 11 Refill(s), Start Date: 08/31/15 14:03:00 OPEN DEVELOPER OPERATOR, Pharmacy: [place] [id number] Start Date: 08/31/15 Status: Orderedferrous sulfate 325 mg (65 mg elemental iron) oral tablet 1 tab(s), Oral, Daily, # 90 tab(s), 2 Refill(s), Start Date: 01/16/16 13:33:00 CDT, Pharmacy: [place] [id number] Start Date: 01/16/16 Status: Orderedferrous sulfate 325 mg (65 mg elemental iron) oral tablet 1 tab(s), Oral, Daily, # 90 tab(s), 0 Refill(s), Start Date: 01/16/16 13:32:00 CDT Start Date: 01/16/16 Stop Date: 01/16/16 Status: DiscontinuedMacrobid 100 mg oral capsule 1 cap(s), Oral, BID, # 14 cap(s), 0 Refill(s), Start Date: 02/04/16 20:15:00 CDT , Pharmacy: [place] [id number] Start Date: 02/04/16 Stop Date: 02/06/16 Status: DiscontinuedMacrobid 100 mg oral capsule 1 cap(s), Oral, BID, # 14 cap(s), 0 Refill(s), Start Date: 11/26/15 15:08:00 CDT , Pharmacy: [place] [id number] Start Date: 11/26/15 Stop Date: 12/20/15 Status: Completedpantoprazole 40 mg oral delayed release tablet 1 tab(s), Oral, Daily, X 14 days, # 14 tab(s), 0 Refill(s), Start Date: 4:33:00 OPEN DEVELOPER OPERATOR Start Date: 06/26/15 Stop Date: 07/10/15 Status: CompletedPercocet 5/325 oral tablet 2 tab(s), Oral, q6hr, PRN for pain, X 3 days, # 15 tab(s), 0 Refill(s), Start Date: 06/26/15 4:33:00 OPEN DEVELOPER OPERATOR Start Date: 06/26/15 Stop Date: 06/29/15 Status: CompletedPercocet 5/325 oral tablet 1 or 2 tabs, Oral, q4hr, PRN pain moderate 4-7, Do not work or drive with this medication, # 12 tab(s), 0 Refill(s), Start Date: 08/18/15 0:20:00 OPEN DEVELOPER OPERATOR Special Instructions: Do not work or drive with this medication Start Date: 08/18/15 Stop Date: 08/21/15 Status: CompletedpredniSONE 20 mg oral tablet See Instructions, 2 tab(s) Oral Daily for 5 days then 1 tab daily for 5 days then 0.5 tab daily for 5 days, # 20 tab(s), 0 Refill(s), Start Date: 12/20/15 14 :03:00 CDT, Pharmacy: [facility] Special Instructions: 2 tab(s) Oral Daily for 5 days then 1 tab daily for 5 days then 0.5 tab daily for 5 days Start Date: 12/20/15 Stop Date: 01/28/16 Status: CompletedProAir HFA 90 mcg/inh inhalation aerosol 2 puff(s), Inhale, QID, PRN for wheezing, # 1 boxes, 2 Refill(s), Start Date: 10:48:39 CDT, Pharmacy: [facility] Start Date: 01/16/16 Status: OrderedProAir HFA 90 mcg/inh inhalation aerosol 2 puff(s), Inhale, QID, PRN for wheezing, # 1 boxes, 2 Refill(s), Start Date: 13:59:00 OPEN DEVELOPER OPERATOR, Pharmacy: [facility] Start Date: 10/17/15 Stop Date: 01/16/16 Status: Discontinuedpromethazine 25 mg oral tablet 1 tab(s), Oral, q4hr, PRN for nausea/vomiting, # 60 tab(s), 0 Refill(s), Start Date: 08/31/15 14:03:00 OPEN DEVELOPER OPERATOR, Pharmacy: [facility] Start Date: 08/31/15 Stop Date: 11/14/15 Status: DiscontinuedSingulair 10 mg oral tablet 1 tab(s), Oral, qPM, # 30 tab(s), 5 Refill(s), Start Date: 12/20/15 14:03:00 CDT , Pharmacy: [place] [id number] Start Date: 12/20/15 Status: OrderedSymbicort 80 mcg-4.5 mcg/inh inhalation aerosol 2 puff(s), Inhale, BID, # 7 gm, 11 Refill(s), Start Date: 11/14/15 13:45:00 CDT , Pharmacy: [place] [id number] Start Date: 11/14/15 Status: OrderedZofran ODT 4 mg oral tablet, disintegrating 1 tab(s), Oral, q6hr, PRN nausea, X 3 days, # 10 tab(s), 0 Refill(s), Start Date : 06/26/15 4:33:00 OPEN DEVELOPER OPERATOR Start Date: 06/26/15 Stop Date: 06/29/15 Status: CompletedZofran ODT 4 mg oral tablet, disintegrating 1 tab(s), Oral, As Indicated, PRN nausea/vomiting, # 10 tab(s), 0 Refill(s), Start Date: 08/18/15 0:19:00 OPEN DEVELOPER OPERATOR Start Date: 08/18/15 Stop Date: 08/31/15 Status: DiscontinuedZofran ODT 4 mg oral tablet, disintegrating 1 tab(s), Oral, q4hr, PRN nausea/vomiting, X 5 days, # 30 tab(s), 0 Refill(s), Start Date: 08/18/15 14:15:00 OPEN DEVELOPER OPERATOR Start Date: 08/18/15 Stop Date: 08/23/15 Status: CompletedZyrTEC 10 mg oral tablet 1 tab(s), Oral, Daily, # 30 tab(s), 11 Refill(s), Start Date: 11/14/15 13:45:00 CDT, Pharmacy: [place] [id number] Start Date: 3/23/16 Status: Ordered Results Patient Viewable Results Most [...]
--- OUTSIDE RECORDS SUMMARY | 2016-11-03 00:10 | XMS REPORT | Summary of Care ---
:[address] [facility] Address [address] [place] [phone]- Care Team Providers Name Role Phone Alta Miller Primary Care Physician Encounter Date(s): 10/15/16 - 10/15/[address] [id number] Discharge Disposition: 01 Discharged to Home or Self Care Attending Physician: Alta Miller, PAC Admitting Physician: Alta Miller, PAC Vital Signs No data available for this [...] QID, 0 Refill(s), Start Date: 08/31/15 13:37:00 FUSE COILER Start Date: 08/31/15 Stop Date: 10/26/15 Status: CompletedCarafate 1 g oral tablet 1 tab(s), Oral, QID, # 120 tab(s), 0 Refill(s), Start Date: 07/25/16 13:18:00 FUSE COILER, Pharmacy: [facility] Start Date: 07/25/16 Stop Date: 10/15/16 Status: DiscontinuedCarafate 1 g oral tablet 1 tab(s), Oral, QIDACHS, # 56 tab(s), 0 Refill(s), Start Date: 06/06/16 12:51: 00 CDT Start Date: 06/06/16 Stop Date: 06/12/16 Status: DiscontinuedCarafate 1 g oral tablet 1 tab(s), Oral, QIDACHS, X 14 days, # 56 tab(s), 0 Refill(s), Start Date: 4:34:00 FUSE COILER Start Date: 06/26/15 Stop Date: 07/10/15 Status: CompletedCarafate 1 g oral tablet 1 tab(s), Oral, QID, # 28 tab(s), 0 Refill(s), Start Date: 10/26/15 13:03:00 FUSE COILER Start Date: 10/26/15 Stop Date: 11/14/15 Status: DiscontinuedCeleXA 10 mg oral tablet 2 tab(s), Oral, Daily, 0 Refill(s), Start Date: 08/31/15 13:36:00 FUSE COILER Start Date: 08/31/15 Stop Date: 07/14/16 Status: DiscontinuedCeleXA 20 mg oral tablet 1 tab(s), Oral, Daily, # 30 tab(s), 2 Refill(s), Start Date: 07/14/16 12:54:00 FUSE COILER, [facility] Start Date: 07/14/16 Status: Orderedcetirizine 5 mg oral tablet 1 tab(s), Oral, Daily, # 10 tab(s), 0 Refill(s), Start Date: 09/01/16 15:51:00 FUSE COILER, [facility] Start Date: 09/01/16 Stop Date: 09/12/16 Status: CompletedClassic oral tablet 1 tab(s), Oral, Daily, # 30 tab(s), 11 Refill(s), Start Date: 08/31/15 14:03:00 FUSE COILER, [facility] Start Date: 08/31/15 Stop Date: 08/01/16 Status: Completeddicyclomine 20 mg oral tablet 1 tab(s), Oral, QID, PRN abdominal pain, # 40 tab(s), 0 Refill(s), Start Date: 08/06/16 0:16:00 FUSE COILER Start Date: 08/06/16 Stop Date: 08/19/16 Status: Completeddicyclomine 20 mg oral tablet 1 tab(s), Oral, QID, PRN abdominal pain, # 40 tab(s), 0 Refill(s), Start Date: 10/13/16 17:43:00 FUSE COILER Start Date: 10/13/16 Stop Date: 10/15/16 Status: DiscontinuedDilaudid 2 mg oral tablet 1 tab(s), Oral, q8hr interval, PRN for pain, # 30 tab(s), 0 Refill(s), Start Date: 08/28/16 18:51:00 FUSE COILER Start Date: 08/28/16 Stop Date: 09/09/16 Status: Completedferrous sulfate 325 mg (65 mg elemental iron) oral tablet 1 tab(s), Oral, Daily, # 90 tab(s), 2 Refill(s), Start Date: 01/16/16 13:33:00 CDT, [facility] Start Date: 01/16/16 Stop Date: 04/28/16 Status: Discontinuedferrous sulfate 325 mg (65 mg elemental iron) oral tablet 1 tab(s), Oral, Daily, # 90 tab(s), 0 Refill(s), Start Date: 01/16/16 13:32:00 CDT Start Date: 01/16/16 Stop Date: 01/16/16 Status: DiscontinuedFlagyl 500 mg oral tablet 1 tab(s), Oral, q12hr, # 14 tab(s), 0 Refill(s), Start Date: 02/23/16 23:20:00 CDT, [facility] Start Date: 02/23/16 Stop Date: 03/12/16 Status: Discontinuedibuprofen 600 mg oral tablet 1 tab(s), Oral, q6hr, PRN pain mild 1-3, # 30 tab(s), 0 Refill(s), Start Date: 04/28/16 9:49:00 CDT, [facility] Start Date: 04/28/16 Stop Date: 08/01/16 Status: CompletedMacrobid 100 mg oral capsule 1 cap(s), Oral, BID, # 14 cap(s), 0 Refill(s), Start Date: 02/04/16 20:15:00 CDT , Pharmacy: [facility] Start Date: 02/04/16 Stop Date: 02/06/16 Status: DiscontinuedMacrobid 100 mg oral capsule 1 cap(s), Oral, BID, # 14 cap(s), 0 Refill(s), Start Date: 11/26/15 15:08:00 CDT , Pharmacy: [facility] 79 Start Date: 11/26/15 Stop Date: 12/20/15 Status: Completedmagnesium citrate 1.745 g/30 mL oral liquid 150 mL, Oral, ONETIME, # 300 mL, 0 Refill(s), Start Date: 08/01/16 18:28:00 FUSE COILER Start Date: 08/01/16 Stop Date: 08/01/16 Status: CompletedMiraLax oral powder for reconstitution 17 gm=, Oral, Daily, dissolve in water before taking, X 31 days, # 527 gm, 0 Refill(s), Start Date: 08/01/16 18:28:00 FUSE COILER Special Instructions: dissolve in water before taking Start Date: 08/01/16 Stop Date: 08/04/16 Status: Completedomeprazole 40 mg oral delayed release capsule 1 cap(s), Oral, Daily, # 30 cap(s), 0 Refill(s), Start Date: 07/25/16 13:18:00 FUSE COILER, [facility] Start Date: 07/25/16 Stop Date: 09/12/16 Status: Completedomeprazole 40 mg oral delayed release capsule 1 cap(s), Oral, Daily, # 30 cap(s), 0 Refill(s), Start Date: 09/10/16 10:56:00 FUSE COILER, [facility] Start Date: 09/10/16 Status: Orderedondansetron 4 mg oral tablet, disintegrating 1 tab(s), Oral, TID, PRN nausea/vomiting, Start Date: 06/06/16 10:52:00 CDT Start Date: 06/06/16 Stop Date: 08/01/16 Status: CompletedoxyCODONE-acetaminophen 5 mg-325 mg oral tablet 1 tab(s), Oral, TID, PRN pain severe 8-10, X 7 days, # 21 tab(s), 0 Refill(s), Start Date: 06/30/16 9:59:27 FUSE COILER, Pharmacy: [facility] Start Date: 06/30/16 Stop Date: 07/07/16 Status: CompletedoxyCODONE-acetaminophen 5 mg-325 mg oral tablet 1 tab(s), Oral, TID, PRN pain severe 8-10, X 7 days, # 21 tab(s), 0 Refill(s), Start Date: 06/23/16 15:23:20 CDT, Pharmacy: [facility] Start Date: 06/23/16 Stop Date: 06/30/16 Status: CompletedoxyCODONE-acetaminophen 5 mg-325 mg oral tablet 2 tab(s), Oral, TID, PRN for pain, Only for severe pain 8-10 not to exceed 4000 mg acetaminophen per day, X 14 days, # 84 tab(s), 0 Refill(s), Start Date: 07/18/16 11:01:00 FUSE COILER, other reason (Rx) Special Instructions: Only for [...] 0 Refill(s), Start Date: 12:59:00 CDT, Pharmacy: [facility] Start Date: 04/11/16 Stop Date: 04/26/16 Status: CompletedoxyCODONE-acetaminophen 5 mg-325 mg oral tablet 1 tab(s), Oral, TID, PRN for pain, Only for severe pain 8-10, X 14 days, # 42 tab(s), 0 Refill(s), Start Date: 07/10/16 9:02:23 FUSE COILER, Pharmacy: [facility] 79 Special Instructions: Only for severe pain 8-10 Start Date: 07/10/16 Stop Date: 07/18/16 Status: CompletedoxyCODONE-acetaminophen 5 mg-325 mg oral tablet 1 tab(s), Oral, q6hr interval, PRN pain severe 8-10, X 10 days, # 40 tab(s), 0 Refill(s), Start Date: 06/12/16 14:19:00 CDT, Pharmacy: [facility] 79 Start Date: 06/12/16 Stop Date: 06/22/16 Status: CompletedoxyCODONE-acetaminophen 5 mg-325 mg oral tablet 1 tab(s), Oral, Daily, PRN for pain, Only for severe pain 8-10, X 7 days, # 7 tab(s), 0 Refill(s), Start Date: 07/07/16 8:39:00 FUSE COILER, Pharmacy: [facility] [place] [address] Special Instructions: Only for severe pain 8-10 Start Date: 07/07/16 Stop Date: 07/10/16 Status: CompletedoxyCODONE-acetaminophen 5 mg-325 mg oral tablet 2 tab(s), Oral, TID, PRN for pain, Only for severe pain 8-10 not to exceed 4000 mg acetaminophen per day, X 7 days, # 42 tab(s), 0 Refill(s), Start Date: 07/18/16 11:44:08 FUSE COILER, Pharmacy: [facility] Special Instructions: Only for severe pain 8-10 not to exceed 4000 mg acetaminophen per day Start Date: 07/18/16 Stop Date: 07/25/16 Status: CompletedoxyCODONE-acetaminophen 5mg-325mg oral tablet 2 tab(s), Oral, TID, PRN for pain, Only for severe pain 8-10 not to exceed 4000 mg acetaminophen per day, X 7 days, # 42 tab(s), 0 Refill(s), Start Date: 07/25/16 12:04:23 FUSE COILER, Pharmacy: [facility] Special Instructions: Only for severe pain 8-10 not to exceed 4000 mg acetaminophen per day Start Date: 07/25/16 Stop Date: 08/01/16 Status: Completedpantoprazole 40 mg oral delayed release tablet 1 tab(s), Oral, Daily, X 14 days, # 14 tab(s), 0 Refill(s), Start Date: 4:33:00 FUSE COILER Start Date: 06/26/15 Stop Date: 07/10/15 Status: [...] tab(s), 0 Refill(s), Start Date: 10/11/16 23:52:00 FUSE COILER Special Instructions: Do not work or drive with this medication Start Date: 10/11/16 Stop Date: 10/12/16 Status: CompletedPercocet 5/325 oral tablet 1 tab(s), Oral, TID, PRN for pain, X 7 days, # 21 tab(s), 0 Refill(s), Start Date: 09/16/16 8:47:54 FUSE COILER, Pharmacy: [facility] Start Date: 09/16/16 Stop Date: 09/22/16 Status: CompletedPercocet 5/325 oral tablet 1 tab(s), Oral, q6hr, PRN for pain, # 30 tab(s), 0 Refill(s), Start Date: 9:49:26 CDT, Pharmacy: [facility] Start Date: 04/28/16 Stop Date: 05/28/16 Status: CompletedPercocet 5/325 oral tablet 1 tab(s), Oral, Daily, PRN for pain, # 3 tab(s), 0 Refill(s), Start Date: 9:47:00 FUSE COILER, Pharmacy: [place] [id number] Start Date: 09/30/16 Stop Date: 10/13/16 Status: CompletedPercocet 5/325 oral tablet 1 tab(s), Oral, q6hr, PRN for pain, # 10 tab(s), 0 Refill(s), Start Date: 8:35:41 CDT, Pharmacy: [facility]97 Start Date: 04/18/16 Stop Date: 04/28/16 Status: DiscontinuedPercocet 5/325 oral tablet 1 tab(s), Oral, q4hr, PRN for pain, X 5 days, # 20 tab(s), 0 Refill(s), Start Date: 06/01/16 0:48:00 CDT Start Date: 06/01/16 Stop Date: 06/06/16 Status: CompletedPercocet 5/325 oral tablet 2 tab(s), Oral, q6hr, PRN for pain, X 3 days, # 15 tab(s), 0 Refill(s), Start Date: 06/26/15 4:33:00 FUSE COILER Start Date: 06/26/15 Stop Date: 06/29/15 Status: CompletedPercocet 5/325 oral tablet 1 tab(s), Oral, q6hr interval, PRN for pain, X 7 days, # 28 tab(s), 0 Refill(s) , Start Date: 09/09/16 11:45:52 FUSE COILER, Pharmacy: [facility] 79 Start Date: 09/09/16 Stop Date: 09/16/16 Status: CompletedPercocet 5/325 oral tablet 1 tab(s), Oral, TID, PRN for pain, X 14 days, # 42 tab(s), 0 Refill(s), Start Date: 10/15/16 11:09:00 FUSE COILER, Pharmacy: [facility] Start Date: 10/15/16 Stop Date: 10/29/16 Status: OrderedPercocet 5/325 oral tablet 1 or 2 tabs, Oral, q4hr, PRN pain moderate 4-7, Do not work or drive with this medication, # 12 tab(s), 0 Refill(s), Start Date: 08/18/15 0:20:00 FUSE COILER Special Instructions: Do not work or drive with this medication Start Date: 08/18/15 Stop Date: 08/21/15 Status: CompletedPercocet 5/325 oral tablet 1 or 2 tabs, Oral, q4hr, PRN pain moderate 4-7, Do not work or drive with this medication, # 12 tab(s), 0 Refill(s), Start Date: 09/27/16 16:08:00 FUSE COILER Special Instructions: Do not work or drive with this medication Start Date: 09/27/16 Stop Date: 09/29/16 Status: CompletedPercocet 5/325 oral tablet 1 tab(s), Oral, q4hr, PRN for pain, # 12 tab(s), 0 Refill(s), Start Date: 11:11:48 FUSE COILER Start Date: 10/06/16 Stop Date: 10/15/16 Status: CompletedPercocet 5/325 oral tablet 1 tab(s), Oral, q4hr, PRN for pain, # 12 tab(s), 0 Refill(s), Start Date: 13:55:00 FUSE COILER Start Date: 10/03/16 Stop Date: 10/06/16 Status: CompletedPercocet 5/325 oral tablet 1 tab(s), Oral, q6hr, PRN for pain, # 10 tab(s), 0 Refill(s), Start Date: 22:53:00 CDT, Pharmacy: [facility] Start Date: 04/17/16 Stop Date: 04/18/16 Status: DiscontinuedPercocet 5/325 oral tablet 1 tab(s), Oral, TID, PRN for pain, # 30 tab(s), 0 Refill(s), Start Date: 15:49:00 FUSE COILER Start Date: 09/01/16 Stop Date: 09/09/16 Status: CompletedPercocet 5/325 oral tablet 1 tab(s), Oral, BID, PRN for pain, X 7 days, # 14 tab(s), 0 Refill(s), Start Date: 09/22/16 9:06:36 FUSE COILER, Pharmacy: [facility] Start Date: 09/22/16 Stop Date: 2/7/17 Status: CompletedPhenergan 25 mg oral tablet 1 tab(s), Oral, q4hr, PRN for nausea/vomiting, X 5 days, # 30 tab(s), 0 Refill(s ), Start Date: 08/24/16 12:32:00 FUSE COILER Start Date: 08/24/16 Stop Date: 08/29/16 Status: CompletedpredniSONE 20 mg oral tablet See Instructions, 2 tab(s) Oral Daily for 5 days then 1 tab daily for 5 days then 0.5 tab daily for 5 days, # 20 tab(s), 0 Refill(s), Start Date: 12/20/15 14 :03:00 CDT, Pharmacy: [facility] Special Instructions: 2 tab(s) Oral Daily for 5 days then 1 tab daily for 5 days then 0.5 tab daily for 5 days Start Date: 12/20/15 Stop Date: 01/28/16 Status: CompletedProAir HFA 90 mcg/inh inhalation aerosol 2 puff(s), Inhale, QID, PRN for wheezing, # 1 boxes, 2 Refill(s), Start Date: 10:48:39 CDT, Pharmacy: [facility] Start Date: 01/16/16 Status: OrderedProAir HFA 90 mcg/inh inhalation aerosol 2 puff(s), Inhale, QID, PRN for wheezing, # 1 boxes, 2 Refill(s), Start Date: 13:59:00 FUSE COILER, [facility] Start Date: 10/17/15 Stop Date: [...] 0 Refill(s), Start Date: 08/02/16 21 :58:00 FUSE COILER Special Instructions: Dispense Start Date: 08/02/16 Stop Date: 08/19/16 Status: Completedpromethazine 25 mg oral tablet 1 tab(s), Oral, q6hr, # 12 tab(s), 0 Refill(s), Start Date: 08/02/16 21:56:00 FUSE COILER Start Date: 08/02/16 Stop Date: 08/19/16 Status: Completedpromethazine 25 mg oral tablet 1 tab(s), Oral, q4hr, PRN for nausea/vomiting, # 60 tab(s), 0 Refill(s), Start Date: 08/31/15 14:03:00 FUSE COILER, Pharmacy: [facility] Start Date: 08/31/15 Stop Date: 11/14/15 Status: DiscontinuedSingulair 10 mg oral tablet 1 tab(s), Oral, qPM, # 30 tab(s), 5 Refill(s), Start Date: 12/20/15 14:03:00 CDT , Pharmacy: [facility] Start Date: 12/20/15 Stop Date: 04/26/16 Status: CompletedSymbicort 80 mcg-4.5 mcg/inh inhalation aerosol 2 puff(s), Inhale, BID, # 7 gm, 11 Refill(s), Start Date: 11/14/15 13:45:00 CDT , [facility] Start Date: 11/14/15 Stop Date: 04/26/16 Status: CompletedtraMADol 50 mg oral tablet 1 tab(s), Oral, q4hr interval, PRN as needed for pain, X 3 days, # 18 tab(s), 0 Refill(s), Start Date: 08/24/16 12:32:00 FUSE COILER Start Date: 08/24/16 Stop Date: 08/27/16 Status: CompletedtraMADol 50 mg oral tablet 1 tab(s), Oral, q4hr, PRN for pain, # 10 tab(s), 0 Refill(s), Start Date: 21:27:00 FUSE COILER Start Date: 08/09/16 Stop Date: 08/19/16 Status: CompletedtraMADol 50 mg oral tablet 1 tab(s), Oral, q4hr, PRN as needed for pain, Dispense, # 4 tab(s), 0 Refill(s) , Start Date: 08/02/16 21:58:00 FUSE COILER Special Instructions: Dispense Start Date: 08/02/16 Stop Date: 08/19/16 Status: CompletedtraMADol 50 mg oral tablet 1 tab(s), Oral, q4hr interval, PRN as needed for pain, # 18 tab(s), 0 Refill(s) , Start Date: 08/02/16 21:56:00 FUSE COILER Start Date: 08/02/16 Stop Date: 08/19/16 Status: CompletedUltram 50 mg oral tablet 1 or2 tab(s), Oral, q6hr interval, PRN for pain, Not work or drive with this medication, # 20 tab(s), 0 Refill(s), Start Date: 08/19/16 18:37:00 FUSE COILER Special Instructions: Not work or drive with this medication Start Date: 08/19/16 Stop Date: 09/01/16 Status: CompletedZofran 4 mg oral tablet 1 tab(s), Oral, TID, PRN nausea/vomiting, # 10 tab(s), 0 Refill(s), Start Date: 08/09/16 21:28:00 FUSE COILER Start Date: 08/09/16 Stop Date: 08/19/16 Status: [...] 0 Refill(s), Start Date : 06/26/15 4:33:00 FUSE COILER Start Date: 06/26/15 Stop Date: 06/29/15 Status: CompletedZofran ODT 4 mg oral tablet, disintegrating 1 tab(s), Oral, TID, # 9 tab(s), 0 Refill(s), Start Date: 09/09/16 11:45:51 FUSE COILER , Pharmacy: [facility] Start Date: 09/09/16 Stop Date: 09/12/16 Status: CompletedZofran ODT 4 mg oral tablet, disintegrating 1 tab(s), Oral, As Indicated, PRN nausea/vomiting, # 10 tab(s), 0 Refill(s), Start Date: 08/18/15 0:19:00 FUSE COILER Start Date: 08/18/15 Stop Date: 08/31/15 Status: DiscontinuedZofran ODT 4 mg oral tablet, disintegrating 1 tab(s), Oral, q8hr interval, PRN nausea/vomiting, # 12 tab(s), 0 Refill(s), Start Date: 09/27/16 16:08:00 FUSE COILER Start Date: 09/27/16 Status: OrderedZofran ODT 4 mg oral tablet, disintegrating 1 tab(s), Oral, QID, X 3 days, # 30 tab(s), 0 Refill(s), Start Date: 08/28/16 18 :51:00 FUSE COILER Start Date: 08/28/16 Stop Date: 09/09/16 Status: CompletedZofran ODT 4 mg oral tablet, disintegrating 1 tab(s), Oral, q4hr, PRN nausea/vomiting, X 5 days, # 30 tab(s), 0 Refill(s), Start Date: 08/18/15 14:15:00 FUSE COILER Start Date: 08/18/15 Stop Date: 08/23/15 Status: CompletedZofran ODT 4 mg oral tablet, disintegrating 1 tab(s), Oral, TID, PRN nausea/vomiting, # 10 tab(s), 0 Refill(s), Start Date: 09/12/16 12:24:00 FUSE COILER Start Date: 09/12/16 Stop Date: 10/01/16 Status: CompletedZyrTEC 10 mg oral tablet 1 tab(s), Oral, Daily, # 30 tab(s), 11 Refill(s), Start Date: 11/14/15 13:45:00 CDT, Pharmacy: [facility] Start Date: 11/14/15 Stop Date: 04/26/16 Status: Completed Results Patient Viewable Results Most recent to oldest [Reference Range]: 1 Cholesterol Total [0-200 mg/dL] 158 mg/dL (10/15/16 11:15 AM) Triglyceride [0-199 mg/dL] 99 mg/dL (10/15/16 11:15 AM) HDL Cholesterol [40-100 mg/dL] 59 mg/dL (10/15/16 11:15 AM) LDL Cholesterol (Direct) [0-129 mg/dL] 95 mg/dL (10/15/16 11:15 AM) Non HDL Cholesterol [0-159 mg/dL] 99 mg/dL (10/15/16 11:15 AM) Immunizations Vaccine Date Refusal Reason tetanus/diphth/pertuss (Tdap) adult/adol 07/28/16 tetanus/diphth/pertuss (Tdap) adult/adol 04/27/16 Patient Refuses Procedures Procedure Date Related Diagnosis Body Site Cholecystectomy Laparoscopic1 10/03/16 Esophagogastroduodenoscopy2 09/10/16 Tubal Ligation Post Partum3 04/27/16 Colonoscopy 2012 Dilation and curettage of uterus 2012 Dilation and curettage of uterus 2000 1auto-populated from documented surgical [id number] from documented surgical [id number] from documented surgical case Social History No data available for this section Assessment and Plan No data available for this section
--- OUTSIDE RECORDS SUMMARY | 2016-11-03 00:10 | XMS REPORT | Summary of Care ---
:1990 Author Organization [facility] Address [address] [place] [id number]- Care Team Providers Name Role Phone TmayjulietaAlta Primary Care Physician Encounter Date(s): 09/17/16 - 09/17/[address] [address]- [facility] [[email or web address]] Discharge Disposition: 01 Discharged to Home or [...] QID, 0 Refill(s), Start Date: 08/31/15 13:37:00 W[employer]LL[employer] SPECIALIST Start Date: 08/31/15 Stop Date: 10/26/15 Status: CompletedCarafate 1 g oral tablet 1 tab(s), Oral, QID, # 120 tab(s), 0 Refill(s), Start Date: 07/25/16 13:18:00 WATER POLLUTION SPECIALIST, Pharmacy: [id number] Start Date: 07/25/16 Status: OrderedCarafate 1 g oral tablet 1 tab(s), Oral, QIDACHS, # 56 tab(s), 0 Refill(s), Start Date: 06/06/16 12:51: 00 CDT Start Date: 06/06/16 Stop Date: 06/12/16 Status: DiscontinuedCarafate 1 g oral tablet 1 tab(s), Oral, QIDACHS, X 14 days, # 56 tab(s), 0 Refill(s), Start Date: 4:34:00 WATER POLLUTION SPECIALIST Start Date: 06/26/15 Stop Date: 07/10/15 Status: CompletedCarafate 1 g oral tablet 1 tab(s), Oral, QID, # 28 tab(s), 0 Refill(s), Start Date: 10/26/15 13:03:00 WATER POLLUTION SPECIALIST Start Date: 10/26/15 Stop Date: 11/14/15 Status: DiscontinuedCeleXA 10 mg oral tablet 2 tab(s), Oral, Daily, 0 Refill(s), Start Date: 08/31/15 13:36:00 WATER POLLUTION SPECIALIST Start Date: 08/31/15 Stop Date: 07/14/16 Status: DiscontinuedCeleXA 20 mg oral tablet 1 tab(s), Oral, Daily, # 30 tab(s), 2 Refill(s), Start Date: 07/14/16 12:54:00 WATER POLLUTION SPECIALIST, Pharmacy: [id number] Start Date: 07/14/16 Status: Orderedcetirizine 5 mg oral tablet 1 tab(s), Oral, Daily, # 10 tab(s), 0 Refill(s), Start Date: 09/01/16 15:51:00 WATER POLLUTION SPECIALIST, Pharmacy: [id number] Start Date: 09/01/16 Stop Date: 09/12/16 Status: CompletedClassic oral tablet 1 tab(s), Oral, Daily, # 30 tab(s), 11 Refill(s), Start Date: 08/31/15 14:03:00 WATER POLLUTION SPECIALIST, Pharmacy: [id number] Start Date: 08/31/15 Stop Date: 08/01/16 Status: Completeddicyclomine 20 mg oral tablet 1 tab(s), Oral, QID, PRN abdominal pain, # 40 tab(s), 0 Refill(s), Start Date: 08/06/16 0:16:00 WATER POLLUTION SPECIALIST Start Date: 08/06/16 Stop Date: 08/19/16 Status: CompletedDilaudid 2 mg oral tablet 1 tab(s), Oral, q8hr interval, PRN for pain, # 30 tab(s), 0 Refill(s), Start Date: 08/28/16 18:51:00 WATER POLLUTION SPECIALIST Start Date: 08/28/16 Stop Date: 09/09/16 Status: Completedferrous sulfate 325 mg (65 mg elemental iron) oral tablet 1 tab(s), Oral, Daily, # 90 tab(s), 2 Refill(s), Start Date: 01/16/16 13:33:00 CDT, Pharmacy: [facility] Start Date: 01/16/16 Stop Date: 04/28/16 Status: Discontinuedferrous sulfate 325 mg (65 mg elemental iron) oral tablet 1 tab(s), Oral, Daily, # 90 tab(s), 0 Refill(s), Start Date: 01/16/16 13:32:00 CDT Start Date: 01/16/16 Stop Date: 01/16/16 Status: DiscontinuedFlagyl 500 mg oral tablet 1 tab(s), Oral, q12hr, # 14 tab(s), 0 Refill(s), Start Date: 02/23/16 23:20:00 CDT, Pharmacy: [facility] Start Date: 02/23/16 Stop Date: 03/12/16 Status: Discontinuedibuprofen 600 mg oral tablet 1 tab(s), Oral, q6hr, PRN pain mild 1-3, # 30 tab(s), 0 Refill(s), Start Date: 04/28/16 9:49:00 CDT, Pharmacy: [facility] Start Date: 04/28/16 Stop Date: 08/01/16 Status: CompletedMacrobid 100 mg oral capsule 1 cap(s), Oral, BID, # 14 cap(s), 0 Refill(s), Start Date: 02/04/16 20:15:00 CDT , Pharmacy: [facility] Start Date: 02/04/16 Stop Date: 02/06/16 Status: DiscontinuedMacrobid 100 mg oral capsule 1 cap(s), Oral, BID, # 14 cap(s), 0 Refill(s), Start Date: 11/26/15 15:08:00 CDT , Pharmacy: [facility] Start Date: 11/26/15 Stop Date: 12/20/15 Status: Completedmagnesium citrate 1.745 g/30 mL oral liquid 150 mL, Oral, ONETIME, # 300 mL, 0 Refill(s), Start Date: 08/01/16 18:28:00 WATER POLLUTION SPECIALIST Start Date: 08/01/16 Stop Date: 08/01/16 Status: CompletedMiraLax oral powder for reconstitution 17 gm=, Oral, Daily, dissolve in water before taking, X 31 days, # 527 gm, 0 Refill(s), Start Date: 08/01/16 18:28:00 WATER POLLUTION SPECIALIST Start Date: 08/01/16 Stop Date: 08/04/16 Status: Completedomeprazole 40 mg oral delayed release capsule 1 cap(s), Oral, Daily, # 30 cap(s), 0 Refill(s), Start Date: 07/25/16 13:18:00 WATER POLLUTION SPECIALIST, Pharmacy: [facility] Start Date: 07/25/16 Stop Date: 09/12/16 Status: Completedomeprazole 40 mg oral delayed release capsule 1 cap(s), Oral, Daily, # 30 cap(s), 0 Refill(s), Start Date: 09/10/16 10:56:00 WATER POLLUTION SPECIALIST, Pharmacy: [facility] Start Date: 09/10/16 Status: Orderedondansetron 4 mg oral tablet, disintegrating 1 tab(s), Oral, TID, PRN nausea/vomiting, Start Date: 06/06/16 10:52:00 CDT Start Date: 06/06/16 Stop Date: 08/01/16 Status: CompletedoxyCODONE-acetaminophen 5 mg-325 mg oral tablet 1 tab(s), Oral, TID, PRN pain severe 8-10, X 7 days, # 21 tab(s), 0 Refill(s), Start Date: 06/30/16 9:59:27 WATER POLLUTION SPECIALIST, Pharmacy: [facility] Start Date: 06/30/16 Stop Date: 07/07/16 Status: CompletedoxyCODONE-acetaminophen 5 mg-325 mg oral tablet 1 tab(s), Oral, TID, PRN pain severe 8-10, X 7 days, # 21 tab(s), 0 Refill(s), Start Date: 06/23/16 15:23:20 CDT, Pharmacy: [facility] Start Date: 06/23/16 Stop Date: 06/30/16 Status: CompletedoxyCODONE-acetaminophen 5 mg-325 mg oral tablet 2 tab(s), Oral, TID, PRN for pain, Only for severe pain 8-10 not to exceed 4000 mg acetaminophen per day, X 14 days, # 84 tab(s), 0 Refill(s), Start Date: 07/18/16 11:01:00 WATER POLLUTION SPECIALIST, other reason (Rx) Start Date: 07/18/16 Stop Date: 07/18/16 Status: CompletedoxyCODONE-acetaminophen 5 mg-325 mg oral tablet 1 tab(s), Oral, q6hr interval, PRN pain severe 8-10, 0 Refill(s), Start Date: 10:53:00 CDT Start Date: 06/06/16 Stop Date: 06/12/16 Status: DiscontinuedoxyCODONE-acetaminophen 5 mg-325 mg oral tablet 1 tab(s), Oral, q4hr, PRN for pain, # 10 tab(s), 0 Refill(s), Start Date: 12:59:00 CDT, Pharmacy: [facility] Start Date: 04/11/16 Stop Date: 04/26/16 Status: CompletedoxyCODONE-acetaminophen 5 mg-325 mg oral tablet 1 tab(s), Oral, TID, PRN for pain, Only for severe pain 8-10, X 14 days, # 42 tab(s), 0 Refill(s), Start Date: 07/10/16 9:02:23 WATER POLLUTION SPECIALIST, Pharmacy: [facility] Start Date: 07/10/16 Stop Date: 07/18/16 Status: CompletedoxyCODONE-acetaminophen 5 mg-325 mg oral tablet 1 tab(s), Oral, q6hr interval, PRN pain severe 8-10, X 10 days, # 40 tab(s), 0 Refill(s), Start Date: 06/12/16 14:19:00 CDT, Pharmacy: [facility] 79 Start Date: 06/12/16 Stop Date: 06/22/16 Status: CompletedoxyCODONE-acetaminophen 5 mg-325 mg oral tablet 1 tab(s), Oral, Daily, PRN for pain, Only for severe pain 8-10, X 7 days, # 7 tab(s), 0 Refill(s), Start Date: 07/07/16 8:39:00 WATER POLLUTION SPECIALIST, Pharmacy: [place] [id number] Start Date: 07/07/16 Stop Date: 07/10/16 Status: CompletedoxyCODONE-acetaminophen 5 mg-325 mg oral tablet 2 tab(s), Oral, TID, PRN for pain, Only for severe pain 8-10 not to exceed 4000 mg acetaminophen per day, X 7 days, # 42 tab(s), 0 Refill(s), Start Date: 07/18/16 11:44:08 WATER POLLUTION SPECIALIST, Pharmacy: [place] [id number] Start Date: 07/18/16 Stop Date: 07/25/16 Status: CompletedoxyCODONE-acetaminophen 5mg-325mg oral tablet 2 tab(s), Oral, TID, PRN for pain, Only for severe pain 8-10 not to exceed 4000 mg acetaminophen per day, X 7 days, # 42 tab(s), 0 Refill(s), Start Date: 07/25/16 12:04:23 WATER POLLUTION SPECIALIST, Pharmacy: [place] [id number] Start Date: 07/25/16 Stop Date: 08/01/16 Status: Completedpantoprazole 40 mg oral delayed release tablet 1 tab(s), Oral, Daily, X 14 days, # 14 tab(s), 0 Refill(s), Start Date: 4:33:00 WATER POLLUTION SPECIALIST Start Date: 06/26/15 Stop Date: 07/10/15 Status: Completedpantoprazole 40 mg oral delayed release tablet 1 tab(s), Oral, Daily, # 30 tab(s), 0 Refill(s), Start Date: 06/06/16 12:51:00 CDT Start Date: 06/06/16 Stop Date: 06/12/16 Status: DiscontinuedPercocet 5/325 oral tablet 1 tab(s), Oral, TID, PRN for pain, # 21 tab(s), 0 Refill(s), Start Date: 8:47:54 WATER POLLUTION SPECIALIST, Pharmacy: [place] [id number] Start Date: 09/16/16 Stop Date: 09/23/16 Status: OrderedPercocet 5/325 oral tablet 1 tab(s), Oral, q6hr, PRN for pain, # 30 tab(s), 0 Refill(s), Start Date: 9:49:26 CDT, Pharmacy: [place] [id number] Start Date: 04/28/16 Stop Date: 05/28/16 Status: CompletedPercocet 5/325 oral tablet 1 tab(s), Oral, q6hr, PRN for pain, # 10 tab(s), 0 Refill(s), Start Date: 8:35:41 CDT, Pharmacy: [place] [id number] Start Date: 04/18/16 Stop Date: 04/28/16 Status: DiscontinuedPercocet 5/325 oral tablet 1 tab(s), Oral, q4hr, PRN for pain, X 5 days, # 20 tab(s), 0 Refill(s), Start Date: 06/01/16 0:48:00 CDT Start Date: 06/01/16 Stop Date: 06/06/16 Status: CompletedPercocet 5/325 oral tablet 2 tab(s), Oral, q6hr, PRN for pain, X 3 days, # 15 tab(s), 0 Refill(s), Start Date: 06/26/15 4:33:00 WATER POLLUTION SPECIALIST Start Date: 06/26/15 Stop Date: 06/29/15 Status: CompletedPercocet 5/325 oral tablet 1 tab(s), Oral, q6hr interval, PRN for pain, X 7 days, # 28 tab(s), 0 Refill(s) , Start Date: 09/09/16 11:45:52 WATER POLLUTION SPECIALIST, Pharmacy: [place] [id number] Start Date: 09/09/16 Stop Date: 09/16/16 Status: CompletedPercocet 5/325 oral tablet 1 or 2 tabs, Oral, q4hr, PRN pain moderate 4-7, Do not work or drive with this medication, # 12 tab(s), 0 Refill(s), Start Date: 08/18/15 0:20:00 WATER POLLUTION SPECIALIST Start Date: 08/18/15 Stop Date: 08/21/15 Status: CompletedPercocet 5/325 oral tablet 1 tab(s), Oral, q6hr, PRN for pain, # 10 tab(s), 0 Refill(s), Start Date: 22:53:00 CDT, Pharmacy: [facility] Start Date: 04/17/16 Stop Date: 04/18/16 Status: DiscontinuedPercocet 5/325 oral tablet 1 tab(s), Oral, TID, PRN for pain, # 30 tab(s), 0 Refill(s), Start Date: 15:49:00 WATER POLLUTION SPECIALIST Start Date: 09/01/16 Stop Date: 09/09/16 Status: CompletedPhenergan 25 mg oral tablet 1 tab(s), Oral, q4hr, PRN for nausea/vomiting, X 5 days, # 30 tab(s), 0 Refill(s ), Start Date: 08/24/16 12:32:00 WATER POLLUTION SPECIALIST Start Date: 08/24/16 Stop Date: 08/29/16 Status: CompletedpredniSONE 20 mg oral tablet See Instructions, 2 tab(s) Oral Daily for 5 days then 1 tab daily for 5 days then 0.5 tab daily for 5 days, # 20 tab(s), 0 Refill(s), Start Date: 12/20/15 14 :03:00 CDT, Pharmacy: [facility] Start Date: 12/20/15 Stop Date: 01/28/16 Status: CompletedProAir HFA 90 mcg/inh inhalation aerosol 2 puff(s), Inhale, QID, PRN for wheezing, # 1 boxes, 2 Refill(s), Start Date: 10:48:39 CDT, Pharmacy: [facility] Start Date: 01/16/16 Status: OrderedProAir HFA 90 mcg/inh inhalation aerosol 2 puff(s), Inhale, QID, PRN for wheezing, # 1 boxes, 2 Refill(s), Start Date: 13:59:00 WATER POLLUTION SPECIALIST, Pharmacy: [facility] 79 Start Date: 10/17/15 Stop [...] 0 Refill(s), Start Date: 08/02/16 21 :58:00 WATER POLLUTION SPECIALIST Start Date: 08/02/16 Stop Date: 08/19/16 Status: Completedpromethazine 25 mg oral tablet 1 tab(s), Oral, q6hr, # 12 tab(s), 0 Refill(s), Start Date: 08/02/16 21:56:00 WATER POLLUTION SPECIALIST Start Date: 08/02/16 Stop Date: 08/19/16 Status: Completedpromethazine 25 mg oral tablet 1 tab(s), Oral, q4hr, PRN for nausea/vomiting, # 60 tab(s), 0 Refill(s), Start Date: 08/31/15 14:03:00 WATER POLLUTION SPECIALIST, Pharmacy: [facility] Start Date: 08/31/15 Stop Date: 11/14/15 Status: DiscontinuedSingulair 10 mg oral tablet 1 tab(s), Oral, qPM, # 30 tab(s), 5 Refill(s), Start Date: 12/20/15 14:03:00 CDT , Pharmacy: [facility] Start Date: 12/20/15 Stop Date: 04/26/16 Status: CompletedSymbicort 80 mcg-4.5 mcg/inh inhalation aerosol 2 puff(s), Inhale, BID, # 7 gm, 11 Refill(s), Start Date: 11/14/15 13:45:00 CDT , Pharmacy: [facility] Start Date: 11/14/15 Stop Date: 04/26/16 Status: CompletedtraMADol 50 mg oral tablet 1 tab(s), Oral, q4hr interval, PRN as needed for pain, X 3 days, # 18 tab(s), 0 Refill(s), Start Date: 08/24/16 12:32:00 WATER POLLUTION SPECIALIST Start Date: 08/24/16 Stop Date: 08/27/16 Status: CompletedtraMADol 50 mg oral tablet 1 tab(s), Oral, q4hr, PRN for pain, # 10 tab(s), 0 Refill(s), Start Date: 21:27:00 WATER POLLUTION SPECIALIST Start Date: 08/09/16 Stop Date: 08/19/16 Status: CompletedtraMADol 50 mg oral tablet 1 tab(s), Oral, q4hr, PRN as needed for pain, Dispense, # 4 tab(s), 0 Refill(s) , Start Date: 08/02/16 21:58:00 WATER POLLUTION SPECIALIST Start Date: 08/02/16 Stop Date: 08/19/16 Status: CompletedtraMADol 50 mg oral tablet 1 tab(s), Oral, q4hr interval, PRN as needed for pain, # 18 tab(s), 0 Refill(s) , Start Date: 08/02/16 21:56:00 WATER POLLUTION SPECIALIST Start Date: 08/02/16 Stop Date: 08/19/16 Status: CompletedUltram 50 mg oral tablet 1 or2 tab(s), Oral, q6hr interval, PRN for pain, Not work or drive with this medication, # 20 tab(s), 0 Refill(s), Start Date: 08/19/16 18:37:00 WATER POLLUTION SPECIALIST Start Date: 08/19/16 Stop Date: 09/01/16 Status: CompletedZofran 4 mg oral tablet 1 tab(s), Oral, TID, PRN nausea/vomiting, # 10 tab(s), 0 Refill(s), Start Date: 08/09/16 21:28:00 WATER POLLUTION SPECIALIST Start Date: 08/09/16 Stop Date: 08/19/16 Status: [...] 0 Refill(s), Start Date : 06/26/15 4:33:00 WATER POLLUTION SPECIALIST Start Date: 06/26/15 Stop Date: 06/29/15 Status: CompletedZofran ODT 4 mg oral tablet, disintegrating 1 tab(s), Oral, TID, # 9 tab(s), 0 Refill(s), Start Date: 09/09/16 11:45:51 WATER POLLUTION SPECIALIST , Pharmacy: [facility] Start Date: 09/09/16 Stop Date: 09/12/16 Status: CompletedZofran ODT 4 mg oral tablet, disintegrating 1 tab(s), Oral, As Indicated, PRN nausea/vomiting, # 10 tab(s), 0 Refill(s), Start Date: 08/18/15 0:19:00 WATER POLLUTION SPECIALIST Start Date: 08/18/15 Stop Date: 08/31/15 Status: DiscontinuedZofran ODT 4 mg oral tablet, disintegrating 1 tab(s), Oral, QID, X 3 days, # 30 tab(s), 0 Refill(s), Start Date: 08/28/16 18 :51:00 WATER POLLUTION SPECIALIST Start Date: 08/28/16 Stop Date: 09/09/16 Status: CompletedZofran ODT 4 mg oral tablet, disintegrating 1 tab(s), Oral, q4hr, PRN nausea/vomiting, X 5 days, # 30 tab(s), 0 Refill(s), Start Date: 08/18/15 14:15:00 WATER POLLUTION SPECIALIST Start Date: 08/18/15 Stop Date: 08/23/15 Status: CompletedZofran ODT 4 mg oral tablet, disintegrating 1 tab(s), Oral, TID, PRN nausea/vomiting, # 10 tab(s), 0 Refill(s), Start Date: 09/12/16 12:24:00 WATER POLLUTION SPECIALIST Start Date: 09/12/16 Status: OrderedZyrTEC 10 mg oral tablet 1 tab(s), Oral, Daily, # 30 tab(s), 11 Refill(s), Start Date: 11/14/15 13:45:00 CDT, Pharmacy: [facility] Start Date: 11/14/15 Stop Date: 04/26/16 Status: Completed Results No data available for this section Immunizations Given and Recorded Vaccine Date Status Refusal Reason tetanus/diphth/pertuss (Tdap) adult/adol 07/28/16 Given Not Given Vaccine Date Status Refusal Reason tetanus/diphth/pertuss (Tdap) adult/adol 04/27/16 Not Given Patient Refuses Procedures Procedure Date Related Diagnosis Body Site Esophagogastroduodenoscopy1 09/10/16 Tubal Ligation Post Partum2 04/27/16 Dilation and curettage of uterus 2013 Dilation and curettage of uterus 2000 1auto-populated from documented surgical [id number] from documented surgical case Social History No data available for this section Assessment and Plan No data available for this section
--- OUTSIDE RECORDS SUMMARY | 2016-11-03 00:11 | XMS REPORT | Summary of Care ---
:1990 Author Organization [facility] Address [address] [place] [address] Care Team Providers Name Role Phone TamyjulietaAlta Primary Care Physician Encounter Date(s): 10/08/16 - 10/08/16 [facility], [address] [place], [place] [address] Discharge Diagnosis: Status post laparoscopic cholecystectomy Discharge Disposition: 01 Discharged to Home or Self Care Attending Physician: LEONEL Jacob Referring Physician: Allison Butler, LEONEL Vital Signs Most recent to oldest [Reference Range]: 1 Blood Pressure [90-130/60-90 mmHg] 122/64mmHg (10/08/16 8:59 AM) Mean Arterial Pressure, Cuff 83 mmHg (10/08/16 8:59 AM) Most recent to oldest [Reference Range]: 1 Height/Length Measured 170 cm (10/08/16 8:59 AM) Weight Dosing 109.60 kg1 (10/08/16 9:02 AM) Weight Measured 109.6 kg (10/08/16 8:59 AM) BSA Measured 2.19 m2 (10/08/16 8:59 AM) Body Mass Index Measured 37.92 kg/m2 (10/08/16 8:59 AM) 1Result Comment: This result was because the dosing weight was either not entered or it is>30 days old. This result is based off: Weight Measured October 08, 2016 08:59:00 [employer] by Kalyani Rodriguez RN Problem List Condition Effective Dates Status [...] QID, 0 Refill(s), Start Date: 08/31/15 13:37:00 [employer] Start Date: 08/31/15 Stop Date: 10/26/15 Status: CompletedCarafate 1 g oral tablet 1 tab(s), Oral, QID, # 120 tab(s), 0 Refill(s), Start Date: 07/25/16 13:18:00 [employer], Pharmacy: [id number] Start Date: 07/25/16 Status: OrderedCarafate 1 g oral tablet 1 tab(s), Oral, QIDACHS, # 56 tab(s), 0 Refill(s), Start Date: 06/06/16 12:51: 00 CDT Start Date: 06/06/16 Stop Date: 06/12/16 Status: DiscontinuedCarafate 1 g oral tablet 1 tab(s), Oral, QIDACHS, X 14 days, # 56 tab(s), 0 Refill(s), Start Date: 4:34:00 [employer] Start Date: 06/26/15 Stop Date: 07/10/15 Status: CompletedCarafate 1 g oral tablet 1 tab(s), Oral, QID, # 28 tab(s), 0 Refill(s), Start Date: 10/26/15 13:03:00 [employer] Start Date: 10/26/15 Stop Date: 11/14/15 Status: DiscontinuedCeleXA 10 mg oral tablet 2 tab(s), Oral, Daily, 0 Refill(s), Start Date: 08/31/15 13:36:00 [employer] Start Date: 08/31/15 Stop Date: 07/14/16 Status: DiscontinuedCeleXA 20 mg oral tablet 1 tab(s), Oral, Daily, # 30 tab(s), 2 Refill(s), Start Date: 07/14/16 12:54:00 [employer], Pharmacy: [place] [id number] Start Date: 07/14/16 Status: Orderedcetirizine 5 mg oral tablet 1 tab(s), Oral, Daily, # 10 tab(s), 0 Refill(s), Start Date: 09/01/16 15:51:00 [employer], Pharmacy: [place] [id number] Start Date: 09/01/16 Stop Date: 09/12/16 Status: CompletedClassic oral tablet 1 tab(s), Oral, Daily, # 30 tab(s), 11 Refill(s), Start Date: 08/31/15 14:03:00 [employer], Pharmacy: [place] [id number] Start Date: 08/31/15 Stop Date: 08/01/16 Status: Completeddicyclomine 20 mg oral tablet 1 tab(s), Oral, QID, PRN abdominal pain, # 40 tab(s), 0 Refill(s), Start Date: 08/06/16 0:16:00 [employer] Start Date: 08/06/16 Stop Date: 08/19/16 Status: CompletedDilaudid 2 mg oral tablet 1 tab(s), Oral, q8hr interval, PRN for pain, # 30 tab(s), 0 Refill(s), Start Date: 08/28/16 18:51:00 [employer] Start Date: 08/28/16 Stop Date: 09/09/16 Status: Completedferrous sulfate 325 mg (65 mg elemental iron) oral tablet 1 tab(s), Oral, Daily, # 90 tab(s), 2 Refill(s), Start Date: 01/16/16 13:33:00 CDT, Pharmacy: [place] [id number] Start Date: 01/16/16 Stop Date: 04/28/16 Status: Discontinuedferrous sulfate 325 mg (65 mg elemental iron) oral tablet 1 tab(s), Oral, Daily, # 90 tab(s), 0 Refill(s), Start Date: 01/16/16 13:32:00 CDT Start Date: 01/16/16 Stop Date: 01/16/16 Status: DiscontinuedFlagyl 500 mg oral tablet 1 tab(s), Oral, q12hr, # 14 tab(s), 0 Refill(s), Start Date: 02/23/16 23:20:00 CDT, Pharmacy: [facility] Start Date: 02/23/16 Stop Date: 03/12/16 Status: Discontinuedibuprofen 600 mg oral tablet 1 tab(s), Oral, q6hr, PRN pain mild 1-3, # 30 tab(s), 0 Refill(s), Start Date: 04/28/16 9:49:00 CDT, Pharmacy: [place] [id number] Start Date: 04/28/16 Stop Date: 08/01/16 Status: CompletedMacrobid 100 mg oral capsule 1 cap(s), Oral, BID, # 14 cap(s), 0 Refill(s), Start Date: 02/04/16 20:15:00 CDT , Pharmacy: [place] [id number] Start Date: 02/04/16 Stop Date: 02/06/16 Status: DiscontinuedMacrobid 100 mg oral capsule 1 cap(s), Oral, BID, # 14 cap(s), 0 Refill(s), Start Date: 11/26/15 15:08:00 CDT , [facility] [id number] Start Date: 11/26/15 Stop Date: 12/20/15 Status: Completedmagnesium citrate 1.745 g/30 mL oral liquid 150 mL, Oral, ONETIME, # 300 mL, 0 Refill(s), Start Date: 08/01/16 18:28:00 [employer] Start Date: 08/01/16 Stop Date: 08/01/16 Status: CompletedMiraLax oral powder for reconstitution 17 gm=, Oral, Daily, dissolve in water before taking, X 31 days, # 527 gm, 0 Refill(s), Start Date: 08/01/16 18:28:00 [employer] Special Instructions: dissolve in water before taking Start Date: 08/01/16 Stop Date: 08/04/16 Status: Completedomeprazole 40 mg oral delayed release capsule 1 cap(s), Oral, Daily, # 30 cap(s), 0 Refill(s), Start Date: 07/25/16 13:18:00 [employer], Pharmacy: [facility] [place] [id number] Start Date: 07/25/16 Stop Date: 09/12/16 Status: Completedomeprazole 40 mg oral delayed release capsule 1 cap(s), Oral, Daily, # 30 cap(s), 0 Refill(s), Start Date: 09/10/16 10:56:00 [employer], Pharmacy: [facility] Start Date: 09/10/16 Status: Orderedondansetron 4 mg oral tablet, disintegrating 1 tab(s), Oral, TID, PRN nausea/vomiting, Start Date: 06/06/16 10:52:00 CDT Start Date: 06/06/16 Stop Date: 08/01/16 Status: CompletedoxyCODONE-acetaminophen 5 mg-325 mg oral tablet 1 tab(s), Oral, TID, PRN pain severe 8-10, X 7 days, # 21 tab(s), 0 Refill(s), Start Date: 06/30/16 9:59:27 [employer], Pharmacy: [facility] Start Date: 06/30/16 Stop Date: 07/07/16 Status: CompletedoxyCODONE-acetaminophen 5 mg-325 mg oral tablet 1 tab(s), Oral, TID, PRN pain severe 8-10, X 7 days, # 21 tab(s), 0 Refill(s), Start Date: 06/23/16 15:23:20 CDT, Pharmacy: [facility] Start Date: 06/23/16 Stop Date: 06/30/16 Status: CompletedoxyCODONE-acetaminophen 5 mg-325 mg oral tablet 2 tab(s), Oral, TID, PRN for pain, Only for severe pain 8-10 not to exceed 4000 mg acetaminophen per day, X 14 days, # 84 tab(s), 0 Refill(s), Start Date: 07/18/16 11:01:00 [employer], other reason (Rx) Special Instructions: Only for [...] 0 Refill(s), Start Date: 12:59:00 CDT, Pharmacy: [facility] Start Date: 04/11/16 Stop Date: 04/26/16 Status: CompletedoxyCODONE-acetaminophen 5 mg-325 mg oral tablet 1 tab(s), Oral, TID, PRN for pain, Only for severe pain 8-10, X 14 days, # 42 tab(s), 0 Refill(s), Start Date: 07/10/16 9:02:23 [employer], Pharmacy: [facility] [address] Special Instructions: Only for severe pain 8-10 Start Date: 07/10/16 Stop Date: 07/18/16 Status: CompletedoxyCODONE-acetaminophen 5 mg-325 mg oral tablet 1 tab(s), Oral, q6hr interval, PRN pain severe 8-10, X 10 days, # 40 tab(s), 0 Refill(s), Start Date: 06/12/16 14:19:00 CDT, Pharmacy: [facility] Start Date: 06/12/16 Stop Date: 06/22/16 Status: CompletedoxyCODONE-acetaminophen 5 mg-325 mg oral tablet 1 tab(s), Oral, Daily, PRN for pain, Only for severe pain 8-10, X 7 days, # 7 tab(s), 0 Refill(s), Start Date: 07/07/16 8:39:00 [employer], Pharmacy: [facility] Special Instructions: Only for severe pain 8-10 Start Date: 07/07/16 Stop Date: 07/10/16 Status: CompletedoxyCODONE-acetaminophen 5 mg-325 mg oral tablet 2 tab(s), Oral, TID, PRN for pain, Only for severe pain 8-10 not to exceed 4000 mg acetaminophen per day, X 7 days, # 42 tab(s), 0 Refill(s), Start Date: 07/18/16 11:44:08 [employer], Pharmacy: [facility] Special Instructions: Only for severe pain 8-10 not to exceed 4000 mg acetaminophen per day Start Date: 07/18/16 Stop Date: 07/25/16 Status: CompletedoxyCODONE-acetaminophen 5mg-325mg oral tablet 2 tab(s), Oral, TID, PRN for pain, Only for severe pain 8-10 not to exceed 4000 mg acetaminophen per day, X 7 days, # 42 tab(s), 0 Refill(s), Start Date: 07/25/16 12:04:23 [employer], Pharmacy: [facility] Special Instructions: Only for severe pain 8-10 not to exceed 4000 mg acetaminophen per day Start Date: 07/25/16 Stop Date: 08/01/16 Status: Completedpantoprazole 40 mg oral delayed release tablet 1 tab(s), Oral, Daily, X 14 days, # 14 tab(s), 0 Refill(s), Start Date: 4:33:00 [employer] Start Date: 06/26/15 Stop Date: 07/10/15 Status: Completedpantoprazole 40 mg oral delayed release tablet 1 tab(s), Oral, Daily, # 30 tab(s), 0 Refill(s), Start Date: 06/06/16 12:51:00 CDT Start Date: 06/06/16 Stop Date: 06/12/16 Status: DiscontinuedPercocet 5/325 oral tablet 1 tab(s), Oral, TID, PRN for pain, X 7 days, # 21 tab(s), 0 Refill(s), Start Date: 09/16/16 8:47:54 [employer], Pharmacy: [facility] Start Date: 09/16/16 Stop Date: 09/22/16 Status: CompletedPercocet 5/325 oral tablet 1 tab(s), Oral, q6hr, PRN for pain, # 30 tab(s), 0 Refill(s), Start Date: 9:49:26 CDT, Pharmacy: [facility] Start Date: 04/28/16 Stop Date: 05/28/16 Status: CompletedPercocet 5/325 oral tablet 1 tab(s), Oral, Daily, PRN for pain, # 3 tab(s), 0 Refill(s), Start Date: 9:47:00 [employer], Pharmacy: [facility] Start Date: 09/30/16 Stop Date: 10/03/16 Status: OrderedPercocet 5/325 oral tablet 1 tab(s), Oral, q6hr, PRN for pain, # 10 tab(s), 0 Refill(s), Start Date: 8:35:41 CDT, Pharmacy: [place] [id number] Start Date: 04/18/16 Stop Date: 04/28/16 Status: DiscontinuedPercocet 5/325 oral tablet 1 tab(s), Oral, q4hr, PRN for pain, X 5 days, # 20 tab(s), 0 Refill(s), Start Date: 06/01/16 0:48:00 CDT Start Date: 06/01/16 Stop Date: 06/06/16 Status: CompletedPercocet 5/325 oral tablet 2 tab(s), Oral, q6hr, PRN for pain, X 3 days, # 15 tab(s), 0 Refill(s), Start Date: 06/26/15 4:33:00 [employer] Start Date: 06/26/15 Stop Date: 06/29/15 Status: CompletedPercocet 5/325 oral tablet 1 tab(s), Oral, q6hr interval, PRN for pain, X 7 days, # 28 tab(s), 0 Refill(s) , Start Date: 09/09/16 11:45:52 [employer], Pharmacy: [place] [id number] Start Date: 09/09/16 Stop Date: 09/16/16 Status: CompletedPercocet 5/325 oral tablet 1 or 2 tabs, Oral, q4hr, PRN pain moderate 4-7, Do not work or drive with this medication, # 12 tab(s), 0 Refill(s), Start Date: 08/18/15 0:20:00 [employer] Special Instructions: Do not work or drive with this medication Start Date: 08/18/15 Stop Date: 08/21/15 Status: CompletedPercocet 5/325 oral tablet 1 or 2 tabs, Oral, q4hr, PRN pain moderate 4-7, Do not work or drive with this medication, # 12 tab(s), 0 Refill(s), Start Date: 09/27/16 16:08:00 [employer] Special Instructions: Do not work or drive with this medication Start Date: 09/27/16 Stop Date: 09/29/16 Status: CompletedPercocet 5/325 oral tablet 1 tab(s), Oral, q4hr, PRN for pain, # 12 tab(s), 0 Refill(s), Start Date: 11:11:48 [employer] Start Date: 10/06/16 Status: OrderedPercocet 5/325 oral tablet 1 tab(s), Oral, q4hr, PRN for pain, # 12 tab(s), 0 Refill(s), Start Date: 13:55:00 [employer] Start Date: 10/03/16 Stop Date: 10/06/16 Status: CompletedPercocet 5/325 oral tablet 1 tab(s), Oral, q6hr, PRN for pain, # 10 tab(s), 0 Refill(s), Start Date: 22:53:00 CDT, Pharmacy: [facility] Start Date: 04/17/16 Stop Date: 04/18/16 Status: DiscontinuedPercocet 5/325 oral tablet 1 tab(s), Oral, TID, PRN for pain, # 30 tab(s), 0 Refill(s), Start Date: 15:49:00 [employer] Start Date: 09/01/16 Stop Date: 09/09/16 Status: CompletedPercocet 5/325 oral tablet 1 tab(s), Oral, BID, PRN for pain, X 7 days, # 14 tab(s), 0 Refill(s), Start Date: 09/22/16 9:06:36 [employer], Pharmacy: [facility] Start Date: 09/22/16 Stop Date: 09/30/16 Status: CompletedPhenergan 25 mg oral tablet 1 tab(s), Oral, q4hr, PRN for nausea/vomiting, X 5 days, # 30 tab(s), 0 Refill(s ), Start Date: 08/24/16 12:32:00 [employer] Start Date: 08/24/16 Stop Date: 08/29/16 Status: CompletedpredniSONE 20 mg oral tablet See Instructions, 2 tab(s) Oral Daily for 5 days then 1 tab daily for 5 days then 0.5 tab daily for 5 days, # 20 tab(s), 0 Refill(s), Start Date: 12/20/15 14 :03:00 CDT, Pharmacy: [facility] Special Instructions: 2 tab(s) Oral Daily for 5 days then 1 tab daily for 5 days then 0.5 tab daily for 5 days Start Date: 12/20/15 Stop Date: 01/28/16 Status: CompletedProAir HFA 90 mcg/inh inhalation aerosol 2 puff(s), Inhale, QID, PRN for wheezing, # 1 boxes, 2 Refill(s), Start Date: 10:48:39 CDT, Pharmacy: [facility] Start Date: 01/16/16 Status: OrderedProAir HFA 90 mcg/inh inhalation aerosol 2 puff(s), Inhale, QID, PRN for wheezing, # 1 boxes, 2 Refill(s), Start Date: 13:59:00 [employer], Pharmacy: [facility] Start Date: 10/17/15 Stop Date: [...] 0 Refill(s), Start Date: 08/02/16 21 :58:00 [employer] Special Instructions: Dispense Start Date: 08/02/16 Stop Date: 08/19/16 Status: Completedpromethazine 25 mg oral tablet 1 tab(s), Oral, q6hr, # 12 tab(s), 0 Refill(s), Start Date: 08/02/16 21:56:00 [employer] Start Date: 08/02/16 Stop Date: 08/19/16 Status: Completedpromethazine 25 mg oral tablet 1 tab(s), Oral, q4hr, PRN for nausea/vomiting, # 60 tab(s), 0 Refill(s), Start Date: 08/31/15 14:03:00 [employer], Pharmacy: [facility] Start Date: 08/31/15 Stop Date: 11/14/15 Status: DiscontinuedSingulair 10 mg oral tablet 1 tab(s), Oral, qPM, # 30 tab(s), 5 Refill(s), Start Date: 12/20/15 14:03:00 CDT , Pharmacy: [place] [id number] Start Date: 12/20/15 Stop Date: 04/26/16 Status: CompletedSymbicort 80 mcg-4.5 mcg/inh inhalation aerosol 2 puff(s), Inhale, BID, # 7 gm, 11 Refill(s), Start Date: 11/14/15 13:45:00 CDT , Pharmacy: [place] [id number] Start Date: 11/14/15 Stop Date: 04/26/16 Status: CompletedtraMADol 50 mg oral tablet 1 tab(s), Oral, q4hr interval, PRN as needed for pain, X 3 days, # 18 tab(s), 0 Refill(s), Start Date: 08/24/16 12:32:00 [employer] Start Date: 08/24/16 Stop Date: 08/27/16 Status: CompletedtraMADol 50 mg oral tablet 1 tab(s), Oral, q4hr, PRN for pain, # 10 tab(s), 0 Refill(s), Start Date: 21:27:00 [employer] Start Date: 08/09/16 Stop Date: 08/19/16 Status: CompletedtraMADol 50 mg oral tablet 1 tab(s), Oral, q4hr, PRN as needed for pain, Dispense, # 4 tab(s), 0 Refill(s) , Start Date: 08/02/16 21:58:00 [employer] Special Instructions: Dispense Start Date: 08/02/16 Stop Date: 08/19/16 Status: CompletedtraMADol 50 mg oral tablet 1 tab(s), Oral, q4hr interval, PRN as needed for pain, # 18 tab(s), 0 Refill(s) , Start Date: 08/02/16 21:56:00 [employer] Start Date: 08/02/16 Stop Date: 08/19/16 Status: CompletedUltram 50 mg oral tablet 1 or2 tab(s), Oral, q6hr interval, PRN for pain, Not work or drive with this medication, # 20 tab(s), 0 Refill(s), Start Date: 08/19/16 18:37:00 [employer] Special Instructions: Not work or drive with this medication Start Date: 08/19/16 Stop Date: 09/01/16 Status: CompletedZofran 4 mg oral tablet 1 tab(s), Oral, TID, PRN nausea/vomiting, # 10 tab(s), 0 Refill(s), Start Date: 08/09/16 21:28:00 [employer] Start Date: 08/09/16 Stop Date: 08/19/16 Status: [...] 0 Refill(s), Start Date : 06/26/15 4:33:00 [employer] Start Date: 06/26/15 Stop Date: 06/29/15 Status: CompletedZofran ODT 4 mg oral tablet, disintegrating 1 tab(s), Oral, TID, # 9 tab(s), 0 Refill(s), Start Date: 09/09/16 11:45:51 [employer] , Pharmacy: [facility] Start Date: 09/09/16 Stop Date: 09/12/16 Status: CompletedZofran ODT 4 mg oral tablet, disintegrating 1 tab(s), Oral, As Indicated, PRN nausea/vomiting, # 10 tab(s), 0 Refill(s), Start Date: 08/18/15 0:19:00 [employer] Start Date: 08/18/15 Stop Date: 08/31/15 Status: DiscontinuedZofran ODT 4 mg oral tablet, disintegrating 1 tab(s), Oral, q8hr interval, PRN nausea/vomiting, # 12 tab(s), 0 Refill(s), Start Date: 09/27/16 16:08:00 [employer] Start Date: 09/27/16 Status: OrderedZofran ODT 4 mg oral tablet, disintegrating 1 tab(s), Oral, QID, X 3 days, # 30 tab(s), 0 Refill(s), Start Date: 08/28/16 18 :51:00 [employer] Start Date: 08/28/16 Stop Date: 09/09/16 Status: CompletedZofran ODT 4 mg oral tablet, disintegrating 1 tab(s), Oral, q4hr, PRN nausea/vomiting, X 5 days, # 30 tab(s), 0 Refill(s), Start Date: 08/18/15 14:15:00 [employer] Start Date: 08/18/15 Stop Date: 08/23/15 Status: CompletedZofran ODT 4 mg oral tablet, disintegrating 1 tab(s), Oral, TID, PRN nausea/vomiting, # 10 tab(s), 0 Refill(s), Start Date: 09/12/16 12:24:00 [employer] Start Date: 09/12/16 Stop Date: 10/01/16 Status: CompletedZyrTEC 10 mg oral tablet 1 tab(s), Oral, Daily, # 30 tab(s), 11 Refill(s), Start Date: 11/14/15 13:45:00 CDT, Pharmacy: [facility] Start Date: 11/14/15 [...] of uterus 2000 1auto-populated from documented surgical [id number] from documented surgical [id number] from documented surgical case Social History No data available for this section Assessment and Plan No data available for this section
--- OUTSIDE RECORDS SUMMARY | 2016-11-03 00:11 | XMS REPORT | Summary of Care ---
:1990 Author Organization [facility] Address [address] [place] [address]- Care Team Providers Name Role Phone Alta Miller Primary Care Physician Encounter Date(s): 10/03/16 - 10/03/[address] [address] Dis[facility] Disposition: 01 Discharged to Home or Self Care Attending Physician: Brian Leyva MD Admitting Physician: Brian Leyva MD Vital Signs Most recent to oldest 1 2 3 [Reference Range]: Temperature Temporal Artery 37.0 DegC 37.0 DegC 37.0 DegC [36-38 DegC] (10/03/16 4:18 PM) (10/03/16 3:10 PM) (10/03/16 1:54 PM) Heart Rate Monitored [60-100 71 bpm 85 bpm 91 bpm bpm] (10/03/16 4:18 PM) (10/03/16 3:43 PM) (10/03/16 3:10 PM) Respiratory Rate [12-20 br/min] 16 br/min 16 br/min 14 br/min (10/03/16 4:18 PM) (10/03/16 3:43 PM) (10/03/16 3:10 PM) SpO2 94 % 95 % 95 % (10/03/16 4:18 PM) (10/03/16 3:43 PM) (10/03/16 3:10 PM) SpO2 Location Left hand Left hand (10/03/16 4:18 PM) (10/03/16 3:43 PM) Blood Pressure [90-130/60-90 112/67mmHg 110/65mmHg 110/57mmHg mmHg] (10/03/16 4:18 PM) (10/03/16 3:43 PM) (10/03/16 3:10 PM) Most recent to oldest [Reference Range]: 1 2 3 Height/Length Measured 170.18 cm (10/03/16 10:48 AM) Height/Length Estimated 170.18 cm 170.18 cm (10/03/16 10:48 AM) (10/01/16 1:06 PM) Weight Estimated 108.9 kg 108.9 kg (10/03/16 10:48 AM) (10/01/16 1:06 PM) Weight Dosing 109.1 kg (10/03/16 10:48 AM) Weight Measured 109.1 kg (10/03/16 10:48 AM) BSA Measured 2.19 m2 (10/03/16 10:48 AM) BSA Estimated 2.27 m2 (10/03/16 10:48 AM) Body Mass Index Measured 37.67 kg/m2 (10/03/16 10:48 AM) Body Mass Index Estimated 37.6 kg/m2 (10/03/16 10:48 AM) Problem List Condition Effective Dates Status [...] QID, 0 Refill(s), Start Date: 08/31/15 13:37:00 [employer] Start Date: 08/31/15 Stop Date: 10/26/15 Status: CompletedCarafate 1 g oral tablet 1 tab(s), Oral, QID, # 120 tab(s), 0 Refill(s), Start Date: 07/25/16 13:18:00 [employer], [facility] Start Date: 07/25/16 Status: OrderedCarafate 1 g oral tablet 1 tab(s), Oral, QIDACHS, # 56 tab(s), 0 Refill(s), Start Date: 06/06/16 12:51: 00 CDT Start Date: 06/06/16 Stop Date: 06/12/16 Status: DiscontinuedCarafate 1 g oral tablet 1 tab(s), Oral, QIDACHS, X 14 days, # 56 tab(s), 0 Refill(s), Start Date: 4:34:00 [employer] Start Date: 06/26/15 Stop Date: 07/10/15 Status: CompletedCarafate 1 g oral tablet 1 tab(s), Oral, QID, # 28 tab(s), 0 Refill(s), Start Date: 10/26/15 13:03:00 [employer] Start Date: 10/26/15 Stop Date: 11/14/15 Status: DiscontinuedCeleXA 10 mg oral tablet 2 tab(s), Oral, Daily, 0 Refill(s), Start Date: 08/31/15 13:36:00 [employer] Start Date: 08/31/15 Stop Date: 07/14/16 Status: DiscontinuedCeleXA 20 mg oral tablet 1 tab(s), Oral, Daily, # 30 tab(s), 2 Refill(s), Start Date: 07/14/16 12:54:00 [employer], Pharmacy: [facility] Start Date: 07/14/16 Status: Orderedcetirizine 5 mg oral tablet 1 tab(s), Oral, Daily, # 10 tab(s), 0 Refill(s), Start Date: 09/01/16 15:51:00 [employer], Pharmacy: [facility] Start Date: 09/01/16 Stop Date: 09/12/16 Status: CompletedClassic oral tablet 1 tab(s), Oral, Daily, # 30 tab(s), 11 Refill(s), Start Date: 08/31/15 14:03:00 [employer], Pharmacy: [facility] Start Date: 08/31/15 Stop Date: 08/01/16 Status: Completeddicyclomine 20 mg oral tablet 1 tab(s), Oral, QID, PRN abdominal pain, # 40 tab(s), 0 Refill(s), Start Date: 08/06/16 0:16:00 [employer] Start Date: 08/06/16 Stop Date: 08/19/16 Status: CompletedDilaudid 2 mg oral tablet 1 tab(s), Oral, q8hr interval, PRN for pain, # 30 tab(s), 0 Refill(s), Start Date: 08/28/16 18:51:00 [employer] Start Date: 08/28/16 Stop Date: 09/09/16 Status: Completedferrous sulfate 325 mg (65 mg elemental iron) oral tablet 1 tab(s), Oral, Daily, # 90 tab(s), 2 Refill(s), Start Date: 01/16/16 13:33:00 CDT, Pharmacy: [place] [id number] Start Date: 01/16/16 Stop Date: 04/28/16 Status: Discontinuedferrous sulfate 325 mg (65 mg elemental iron) oral tablet 1 tab(s), Oral, Daily, # 90 tab(s), 0 Refill(s), Start Date: 01/16/16 13:32:00 CDT Start Date: 01/16/16 Stop Date: 01/16/16 Status: DiscontinuedFlagyl 500 mg oral tablet 1 tab(s), Oral, q12hr, # 14 tab(s), 0 Refill(s), Start Date: 02/23/16 23:20:00 CDT, Pharmacy: [facility] Start Date: 02/23/16 Stop Date: 03/12/16 Status: Discontinuedibuprofen 600 mg oral tablet 1 tab(s), Oral, q6hr, PRN pain mild 1-3, # 30 tab(s), 0 Refill(s), Start Date: 04/28/16 9:49:00 CDT, Pharmacy: [facility] Start Date: 04/28/16 Stop Date: 08/01/16 Status: CompletedMacrobid 100 mg oral capsule 1 cap(s), Oral, BID, # 14 cap(s), 0 Refill(s), Start Date: 02/04/16 20:15:00 CDT , Pharmacy: [facility] Start Date: 02/04/16 Stop Date: 02/06/16 Status: DiscontinuedMacrobid 100 mg oral capsule 1 cap(s), Oral, BID, # 14 cap(s), 0 Refill(s), Start Date: 11/26/15 15:08:00 CDT , Pharmacy: [facility] Start Date: 11/26/15 Stop Date: 12/20/15 Status: Completedmagnesium citrate 1.745 g/30 mL oral liquid 150 mL, Oral, ONETIME, # 300 mL, 0 Refill(s), Start Date: 08/01/16 18:28:00 [employer] Start Date: 08/01/16 Stop Date: 08/01/16 Status: CompletedMiraLax oral powder for reconstitution 17 gm=, Oral, Daily, dissolve in water before taking, X 31 days, # 527 gm, 0 Refill(s), Start Date: 08/01/16 18:28:00 [employer] Special Instructions: dissolve in water before taking Start Date: 08/01/16 Stop Date: 08/04/16 Status: Completedomeprazole 40 mg oral delayed release capsule 1 cap(s), Oral, Daily, # 30 cap(s), 0 Refill(s), Start Date: 07/25/16 13:18:00 [employer], Pharmacy: [facility] Start Date: 07/25/16 Stop Date: 09/12/16 Status: Completedomeprazole 40 mg oral delayed release capsule 1 cap(s), Oral, Daily, # 30 cap(s), 0 Refill(s), Start Date: 09/10/16 10:56:00 [employer], Pharmacy: [facility] Start Date: 09/10/16 Status: Orderedondansetron 4 mg oral tablet, disintegrating 1 tab(s), Oral, TID, PRN nausea/vomiting, Start Date: 06/06/16 10:52:00 CDT Start Date: 06/06/16 Stop Date: 08/01/16 Status: CompletedoxyCODONE-acetaminophen 5 mg-325 mg oral tablet 1 tab(s), Oral, TID, PRN pain severe 8-10, X 7 days, # 21 tab(s), 0 Refill(s), Start Date: 06/30/16 9:59:27 [employer], Pharmacy: [facility] Start Date: 06/30/16 Stop Date: 07/07/16 Status: CompletedoxyCODONE-acetaminophen 5 mg-325 mg oral tablet 1 tab(s), Oral, TID, PRN pain severe 8-10, X 7 days, # 21 tab(s), 0 Refill(s), Start Date: 06/23/16 15:23:20 CDT, Pharmacy: [facility] Start Date: 06/23/16 Stop Date: 06/30/16 Status: CompletedoxyCODONE-acetaminophen 5 mg-325 mg oral tablet 2 tab(s), Oral, TID, PRN for pain, Only for severe pain 8-10 not to exceed 4000 mg acetaminophen per day, X 14 days, # 84 tab(s), 0 Refill(s), Start Date: 07/18/16 11:01:00 [employer], other reason (Rx) Special Instructions: Only [...] 0 Refill(s), Start Date: 12:59:00 CDT, [facility] Start Date: 04/11/16 Stop Date: 04/26/16 Status: CompletedoxyCODONE-acetaminophen 5 mg-325 mg oral tablet 1 tab(s), Oral, TID, PRN for pain, Only for severe pain 8-10, X 14 days, # 42 tab(s), 0 Refill(s), Start Date: 07/10/16 9:02:23 [employer], Pharmacy: [facility] Special Instructions: Only for severe pain 8-10 Start Date: 07/10/16 Stop Date: 07/18/16 Status: CompletedoxyCODONE-acetaminophen 5 mg-325 mg oral tablet 1 tab(s), Oral, q6hr interval, PRN pain severe 8-10, X 10 days, # 40 tab(s), 0 Refill(s), Start Date: 06/12/16 14:19:00 CDT, Pharmacy: [facility] Start Date: 06/12/16 Stop Date: 06/22/16 Status: CompletedoxyCODONE-acetaminophen 5 mg-325 mg oral tablet 1 tab(s), Oral, Daily, PRN for pain, Only for severe pain 8-10, X 7 days, # 7 tab(s), 0 Refill(s), Start Date: 07/07/16 8:39:00 [employer], Pharmacy: [facility] Special Instructions: Only for severe pain 8-10 Start Date: 07/07/16 Stop Date: 07/10/16 Status: CompletedoxyCODONE-acetaminophen 5 mg-325 mg oral tablet 2 tab(s), Oral, TID, PRN for pain, Only for severe pain 8-10 not to exceed 4000 mg acetaminophen per day, X 7 days, # 42 tab(s), 0 Refill(s), Start Date: 07/18/16 11:44:08 [employer], Pharmacy: [facility] Special Instructions: Only for severe pain 8-10 not to exceed 4000 mg acetaminophen per day Start Date: 07/18/16 Stop Date: 07/25/16 Status: CompletedoxyCODONE-acetaminophen 5mg-325mg oral tablet 2 tab(s), Oral, TID, PRN for pain, Only for severe pain 8-10 not to exceed 4000 mg acetaminophen per day, X 7 days, # 42 tab(s), 0 Refill(s), Start Date: 07/25/16 12:04:23 [employer], Pharmacy: [facility] Special Instructions: Only for severe pain 8-10 not to exceed 4000 mg acetaminophen per day Start Date: 07/25/16 Stop Date: 08/01/16 Status: Completedpantoprazole 40 mg oral delayed release tablet 1 tab(s), Oral, Daily, X 14 days, # 14 tab(s), 0 Refill(s), Start Date: 4:33:00 [employer] Start Date: 06/26/15 Stop Date: 07/10/15 Status: Completedpantoprazole 40 mg oral delayed release tablet 1 tab(s), Oral, Daily, # 30 tab(s), 0 Refill(s), Start Date: 06/06/16 12:51:00 CDT Start Date: 06/06/16 Stop Date: 06/12/16 Status: DiscontinuedPercocet 5/325 oral tablet 1 tab(s), Oral, TID, PRN for pain, X 7 days, # 21 tab(s), 0 Refill(s), Start Date: 09/16/16 8:47:54 [employer], Pharmacy: [place] [id number] Start Date: 09/16/16 Stop Date: 09/22/16 Status: CompletedPercocet 5/325 oral tablet 1 tab(s), Oral, q6hr, PRN for pain, # 30 tab(s), 0 Refill(s), Start Date: 9:49:26 CDT, Pharmacy: [place] [id number] Start Date: 04/28/16 Stop Date: 05/28/16 Status: CompletedPercocet 5/325 oral tablet 1 tab(s), Oral, Daily, PRN for pain, # 3 tab(s), 0 Refill(s), Start Date: 9:47:00 [employer], Pharmacy: [place] [id number] Start Date: 09/30/16 Stop Date: 10/03/16 Status: OrderedPercocet 5/325 oral tablet 1 tab(s), Oral, q6hr, PRN for pain, # 10 tab(s), 0 Refill(s), Start Date: 8:35:41 CDT, Pharmacy: [place] [id number] Start Date: 04/18/16 Stop Date: 04/28/16 Status: DiscontinuedPercocet 5/325 oral tablet 1 tab(s), Oral, q4hr, PRN for pain, X 5 days, # 20 tab(s), 0 Refill(s), Start Date: 06/01/16 0:48:00 CDT Start Date: 06/01/16 Stop Date: 06/06/16 Status: CompletedPercocet 5/325 oral tablet 2 tab(s), Oral, q6hr, PRN for pain, X 3 days, # 15 tab(s), 0 Refill(s), Start Date: 06/26/15 4:33:00 [employer] Start Date: 06/26/15 Stop Date: 06/29/15 Status: CompletedPercocet 5/325 oral tablet 1 tab(s), Oral, q6hr interval, PRN for pain, X 7 days, # 28 tab(s), 0 Refill(s) , Start Date: 09/09/16 11:45:52 [employer], Pharmacy: [facility] Start Date: 09/09/16 Stop Date: 09/16/16 Status: CompletedPercocet 5/325 oral tablet 1 or 2 tabs, Oral, q4hr, PRN pain moderate 4-7, Do not work or drive with this medication, # 12 tab(s), 0 Refill(s), Start Date: 08/18/15 0:20:00 [employer] Special Instructions: Do not work or drive with this medication Start Date: 08/18/15 Stop Date: 08/21/15 Status: CompletedPercocet 5/325 oral tablet 1 or 2 tabs, Oral, q4hr, PRN pain moderate 4-7, Do not work or drive with this medication, # 12 tab(s), 0 Refill(s), Start Date: 09/27/16 16:08:00 [employer] Special Instructions: Do not work or drive with this medication Start Date: 09/27/16 Stop Date: 09/29/16 Status: CompletedPercocet 5/325 oral tablet 1 tab(s), Oral, q4hr, PRN for pain, # 12 tab(s), 0 Refill(s), Start Date: 13:55:00 [employer] Start Date: 10/03/16 Stop Date: 10/09/16 Status: OrderedPercocet 5/325 oral tablet 1 tab(s), Oral, q6hr, PRN for pain, # 10 tab(s), 0 Refill(s), Start Date: 22:53:00 CDT, Pharmacy: [facility] Start Date: 04/17/16 Stop Date: 04/18/16 Status: DiscontinuedPercocet 5/325 oral tablet 1 tab(s), Oral, TID, PRN for pain, # 30 tab(s), 0 Refill(s), Start Date: 15:49:00 [employer] Start Date: 09/01/16 Stop Date: 09/09/16 Status: CompletedPercocet 5/325 oral tablet 1 tab(s), Oral, BID, PRN for pain, X 7 days, # 14 tab(s), 0 Refill(s), Start Date: 09/22/16 9:06:36 [employer], Pharmacy: [facility] Start Date: 09/22/16 Stop Date: 09/30/16 Status: CompletedPhenergan 25 mg oral tablet 1 tab(s), Oral, q4hr, PRN for nausea/vomiting, X 5 days, # 30 tab(s), 0 Refill(s ), Start Date: 08/24/16 12:32:00 [employer] Start Date: 08/24/16 Stop Date: 08/29/16 Status: CompletedpredniSONE 20 mg oral tablet See Instructions, 2 tab(s) Oral Daily for 5 days then 1 tab daily for 5 days then 0.5 tab daily for 5 days, # 20 tab(s), 0 Refill(s), Start Date: 12/20/15 14 :03:00 CDT, Pharmacy: [facility] Special Instructions: 2 tab(s) Oral Daily for 5 days then 1 tab daily for 5 days then 0.5 tab daily for 5 days Start Date: 12/20/15 Stop Date: 01/28/16 Status: CompletedProAir HFA 90 mcg/inh inhalation aerosol 2 puff(s), Inhale, QID, PRN for wheezing, # 1 boxes, 2 Refill(s), Start Date: 10:48:39 CDT, Pharmacy: [facility] Start Date: 01/16/16 Status: OrderedProAir HFA 90 mcg/inh inhalation aerosol 2 puff(s), Inhale, QID, PRN for wheezing, # 1 boxes, 2 Refill(s), Start Date: 13:59:00 [employer], Pharmacy: [facility] Start Date: 10/17/15 Stop Date: [...] 0 Refill(s), Start Date: 08/02/16 21 :58:00 [employer] Special Instructions: Dispense Start Date: 08/02/16 Stop Date: 08/19/16 Status: Completedpromethazine 25 mg oral tablet 1 tab(s), Oral, q6hr, # 12 tab(s), 0 Refill(s), Start Date: 08/02/16 21:56:00 [employer] Start Date: 08/02/16 Stop Date: 08/19/16 Status: Completedpromethazine 25 mg oral tablet 1 tab(s), Oral, q4hr, PRN for nausea/vomiting, # 60 tab(s), 0 Refill(s), Start Date: 08/31/15 14:03:00 [employer], Pharmacy: [facility] Start Date: 08/31/15 Stop Date: 11/14/15 Status: DiscontinuedSingulair 10 mg oral tablet 1 tab(s), Oral, qPM, # 30 tab(s), 5 Refill(s), Start Date: 12/20/15 14:03:00 CDT , Pharmacy: [facility] Start Date: 12/20/15 Stop Date: 04/26/16 Status: CompletedSymbicort 80 mcg-4.5 mcg/inh inhalation aerosol 2 puff(s), Inhale, BID, # 7 gm, 11 Refill(s), Start Date: 11/14/15 13:45:00 CDT , Pharmacy: [facility] Start Date: 11/14/15 Stop Date: 04/26/16 Status: CompletedtraMADol 50 mg oral tablet 1 tab(s), Oral, q4hr interval, PRN as needed for pain, X 3 days, # 18 tab(s), 0 Refill(s), Start Date: 08/24/16 12:32:00 [employer] Start Date: 08/24/16 Stop Date: 08/27/16 Status: CompletedtraMADol 50 mg oral tablet 1 tab(s), Oral, q4hr, PRN for pain, # 10 tab(s), 0 Refill(s), Start Date: 21:27:00 [employer] Start Date: 08/09/16 Stop Date: 08/19/16 Status: CompletedtraMADol 50 mg oral tablet 1 tab(s), Oral, q4hr, PRN as needed for pain, Dispense, # 4 tab(s), 0 Refill(s) , Start Date: 08/02/16 21:58:00 [employer] Special Instructions: Dispense Start Date: 08/02/16 Stop Date: 08/19/16 Status: CompletedtraMADol 50 mg oral tablet 1 tab(s), Oral, q4hr interval, PRN as needed for pain, # 18 tab(s), 0 Refill(s) , Start Date: 08/02/16 21:56:00 [employer] Start Date: 08/02/16 Stop Date: 08/19/16 Status: CompletedUltram 50 mg oral tablet 1 or2 tab(s), Oral, q6hr interval, PRN for pain, Not work or drive with this medication, # 20 tab(s), 0 Refill(s), Start Date: 08/19/16 18:37:00 [employer] Special Instructions: Not work or drive with this medication Start Date: 08/19/16 Stop Date: 09/01/16 Status: CompletedZofran 4 mg oral tablet 1 tab(s), Oral, TID, PRN nausea/vomiting, # 10 tab(s), 0 Refill(s), Start Date: 08/09/16 21:28:00 [employer] Start Date: 08/09/16 Stop Date: 08/19/16 [...] 0 Refill(s), Start Date : 06/26/15 4:33:00 [employer] Start Date: 06/26/15 Stop Date: 06/29/15 Status: CompletedZofran ODT 4 mg oral tablet, disintegrating 1 tab(s), Oral, TID, # 9 tab(s), 0 Refill(s), Start Date: 09/09/16 11:45:51 [employer] , Pharmacy: [facility] Start Date: 09/09/16 Stop Date: 09/12/16 Status: CompletedZofran ODT 4 mg oral tablet, disintegrating 1 tab(s), Oral, As Indicated, PRN nausea/vomiting, # 10 tab(s), 0 Refill(s), Start Date: 08/18/15 0:19:00 [employer] Start Date: 08/18/15 Stop Date: 08/31/15 Status: DiscontinuedZofran ODT 4 mg oral tablet, disintegrating 1 tab(s), Oral, q8hr interval, PRN nausea/vomiting, # 12 tab(s), 0 Refill(s), Start Date: 09/27/16 16:08:00 [employer] Start Date: 09/27/16 Status: OrderedZofran ODT 4 mg oral tablet, disintegrating 1 tab(s), Oral, QID, X 3 days, # 30 tab(s), 0 Refill(s), Start Date: 08/28/16 18 :51:00 [employer] Start Date: 08/28/16 Stop Date: 09/09/16 Status: CompletedZofran ODT 4 mg oral tablet, disintegrating 1 tab(s), Oral, q4hr, PRN nausea/vomiting, X 5 days, # 30 tab(s), 0 Refill(s), Start Date: 08/18/15 14:15:00 [employer] Start Date: 08/18/15 Stop Date: 08/23/15 Status: CompletedZofran ODT 4 mg oral tablet, disintegrating 1 tab(s), Oral, TID, PRN nausea/vomiting, # 10 tab(s), 0 Refill(s), Start Date: 09/12/16 12:24:00 [employer] Start Date: 09/12/16 Stop Date: 10/01/16 Status: CompletedZyrTEC 10 mg oral tablet 1 tab(s), Oral, Daily, # 30 tab(s), 11 Refill(s), Start Date: 11/14/15 13:45:00 CDT, Pharmacy: [facility] Start Date: 11/14/15 Stop Date: 04/26/16 Status: Completed Results Patient Viewable Results Most recent to oldest 1 2 3 [Reference Range]: AN - Fi O2 91 % % 93 % % 93 % % (10/03/16 1:45 PM) (10/03/16 1:40 PM) (10/03/16 1:35 PM) Estimated Creatinine Clearance 166.88 mL/min (10/03/16 10:52 AM) Immunizations Vaccine Date Refusal Reason tetanus/diphth/pertuss (Tdap) adult/adol 07/28/16 tetanus/diphth/pertuss (Tdap) adult/adol 04/27/16 Patient Refuses Procedures Procedure Date Related Diagnosis Body Site Cholecystectomy Laparoscopic1 10/03/16 Esophagogastroduodenoscopy2 09/10/16 Tubal Ligation Post Partum3 04/27/16 Colonoscopy 2012 Dilation and curettage of uterus 2012 Dilation and curettage of uterus 2000 1auto-populated from documented surgical [id number] from documented surgical [id number] from documented surgical case Social History No data available for this section Assessment and Plan No data available for this section
--- OUTSIDE RECORDS SUMMARY | 2016-11-03 00:12 | XMS REPORT | Summary of Care ---
:1990 Author Organization [facility] Address [address] [place] [id number]- Care Team Providers Name Role Phone Alta Miller Primary Care Physician Encounter Date(s): 09/27/16 - 09/27/[address] [address]- [facility] Discharge Diagnosis: Abdominal pain Discharge Disposition: Discharged to Home or Self Care Attending Physician: RAYNA Mcclellan Admitting Physician: RAYNA Mcclellan Vital Signs Most recent to oldest [Reference Range]: 1 2 Temperature Temporal Artery [36-38 DegC] 37.2 DegC (09/27/16 4:14 PM) Temperature Temporal Artery [36.0-38.0 DegC] 36.6 DegC (09/27/16 2:44 PM) Heart Rate Monitored [60-100 bpm] 89 bpm 102 bpm (09/27/16 4:14 PM) *HI* (09/27/16 2:44 PM) Respiratory Rate [12-20 br/min] 18 br/min 18 br/min (09/27/16 4:14 PM) (09/27/16 2:44 PM) SpO2 98 % 96 % (09/27/16 4:14 PM) (09/27/16 2:44 PM) Blood Pressure [90-130/60-90 mmHg] 126/68mmHg 123/72mmHg (09/27/16 4:14 PM) (09/27/16 2:44 PM) Most recent to oldest [Reference Range]: 1 2 Weight Estimated 110 kg (09/27/16 2:44 PM) Weight Dosing 110.00 kg1 (09/27/16 2:46 PM) 1Result Comment: This result was because the dosing weight was either not entered or it is>30 days old. This result is based off: Weight Estimated September 27, 2016 14:44:00 EMERGENCY MEDICAL TECHNICIAN BASIC by Hilda Willard RN Problem List Condition [...] QID, 0 Refill(s), Start Date: 08/31/15 13:37:00 EMERGENCY MEDICAL TECHNICIAN BASIC Start Date: 08/31/15 Stop Date: 10/26/15 Status: CompletedCarafate 1 g oral tablet 1 tab(s), Oral, QID, # 120 tab(s), 0 Refill(s), Start Date: 07/25/16 13:18:00 EMERGENCY MEDICAL TECHNICIAN BASIC, Pharmacy: [facility] Start Date: 07/25/16 Status: OrderedCarafate 1 g oral tablet 1 tab(s), Oral, QIDACHS, # 56 tab(s), 0 Refill(s), Start Date: 06/06/16 12:51: 00 CDT Start Date: 06/06/16 Stop Date: 06/12/16 Status: DiscontinuedCarafate 1 g oral tablet 1 tab(s), Oral, QIDACHS, X 14 days, # 56 tab(s), 0 Refill(s), Start Date: 4:34:00 EMERGENCY MEDICAL TECHNICIAN BASIC Start Date: 06/26/15 Stop Date: 07/10/15 Status: CompletedCarafate 1 g oral tablet 1 tab(s), Oral, QID, # 28 tab(s), 0 Refill(s), Start Date: 10/26/15 13:03:00 EMERGENCY MEDICAL TECHNICIAN BASIC Start Date: 10/26/15 Stop Date: 11/14/15 Status: DiscontinuedCeleXA 10 mg oral tablet 2 tab(s), Oral, Daily, 0 Refill(s), Start Date: 08/31/15 13:36:00 EMERGENCY MEDICAL TECHNICIAN BASIC Start Date: 08/31/15 Stop Date: 07/14/16 Status: DiscontinuedCeleXA 20 mg oral tablet 1 tab(s), Oral, Daily, # 30 tab(s), 2 Refill(s), Start Date: 07/14/16 12:54:00 EMERGENCY MEDICAL TECHNICIAN BASIC, Pharmacy: [facility] [id number] Start Date: 07/14/16 Status: Orderedcetirizine 5 mg oral tablet 1 tab(s), Oral, Daily, # 10 tab(s), 0 Refill(s), Start Date: 09/01/16 15:51:00 EMERGENCY MEDICAL TECHNICIAN BASIC, Pharmacy: [facility] [id number] Start Date: 09/01/16 Stop Date: 09/12/16 Status: CompletedClassic oral tablet 1 tab(s), Oral, Daily, # 30 tab(s), 11 Refill(s), Start Date: 08/31/15 14:03:00 EMERGENCY MEDICAL TECHNICIAN BASIC, Pharmacy: [facility] [id number] Start Date: 08/31/15 Stop Date: 08/01/16 Status: Completeddicyclomine 20 mg oral tablet 1 tab(s), Oral, QID, PRN abdominal pain, # 40 tab(s), 0 Refill(s), Start Date: 08/06/16 0:16:00 EMERGENCY MEDICAL TECHNICIAN BASIC Start Date: 08/06/16 Stop Date: 08/19/16 Status: CompletedDilaudid 2 mg oral tablet 1 tab(s), Oral, q8hr interval, PRN for pain, # 30 tab(s), 0 Refill(s), Start Date: 08/28/16 18:51:00 EMERGENCY MEDICAL TECHNICIAN BASIC Start Date: 08/28/16 Stop Date: 09/09/16 Status: Completedferrous sulfate 325 mg (65 mg elemental iron) oral tablet 1 tab(s), Oral, Daily, # 90 tab(s), 2 Refill(s), Start Date: 01/16/16 13:33:00 CDT, Pharmacy: [facility] [id number] Start Date: 01/16/16 Stop Date: 04/28/16 Status: Discontinuedferrous sulfate 325 mg (65 mg elemental iron) oral tablet 1 tab(s), Oral, Daily, # 90 tab(s), 0 Refill(s), Start Date: 01/16/16 13:32:00 CDT Start Date: 01/16/16 Stop Date: 01/16/16 Status: DiscontinuedFlagyl 500 mg oral tablet 1 tab(s), Oral, q12hr, # 14 tab(s), 0 Refill(s), Start Date: 02/23/16 23:20:00 CDT, Pharmacy: [facility] Start Date: 02/23/16 Stop Date: 03/12/16 Status: Discontinuedibuprofen 600 mg oral tablet 1 tab(s), Oral, q6hr, PRN pain mild 1-3, # 30 tab(s), 0 Refill(s), Start Date: 04/28/16 9:49:00 CDT, Pharmacy: [facility] Start Date: 04/28/16 Stop Date: 08/01/16 Status: CompletedMacrobid 100 mg oral capsule 1 cap(s), Oral, BID, # 14 cap(s), 0 Refill(s), Start Date: 02/04/16 20:15:00 CDT , Pharmacy: [facility] Start Date: 02/04/16 Stop Date: 02/06/16 Status: DiscontinuedMacrobid 100 mg oral capsule 1 cap(s), Oral, BID, # 14 cap(s), 0 Refill(s), Start Date: 11/26/15 15:08:00 CDT , Pharmacy: [facility] Start Date: 11/26/15 Stop Date: 12/20/15 Status: Completedmagnesium citrate 1.745 g/30 mL oral liquid 150 mL, Oral, ONETIME, # 300 mL, 0 Refill(s), Start Date: 08/01/16 18:28:00 EMERGENCY MEDICAL TECHNICIAN BASIC Start Date: 08/01/16 Stop Date: 08/01/16 Status: CompletedMiraLax oral powder for reconstitution 17 gm=, Oral, Daily, dissolve in water before taking, X 31 days, # 527 gm, 0 Refill(s), Start Date: 08/01/16 18:28:00 EMERGENCY MEDICAL TECHNICIAN BASIC Special Instructions: dissolve in water before taking Start Date: 08/01/16 Stop Date: 08/04/16 Status: Completedomeprazole 40 mg oral delayed release capsule 1 cap(s), Oral, Daily, # 30 cap(s), 0 Refill(s), Start Date: 07/25/16 13:18:00 EMERGENCY MEDICAL TECHNICIAN BASIC, Pharmacy: [facility] Start Date: 07/25/16 Stop Date: 09/12/16 Status: Completedomeprazole 40 mg oral delayed release capsule 1 cap(s), Oral, Daily, # 30 cap(s), 0 Refill(s), Start Date: 09/10/16 10:56:00 EMERGENCY MEDICAL TECHNICIAN BASIC, Pharmacy: [facility] Start Date: 09/10/16 Status: Orderedondansetron 4 mg oral tablet, disintegrating 1 tab(s), Oral, TID, PRN nausea/vomiting, Start Date: 06/06/16 10:52:00 CDT Start Date: 06/06/16 Stop Date: 08/01/16 Status: CompletedoxyCODONE-acetaminophen 5 mg-325 mg oral tablet 1 tab(s), Oral, TID, PRN pain severe 8-10, X 7 days, # 21 tab(s), 0 Refill(s), Start Date: 06/30/16 9:59:27 EMERGENCY MEDICAL TECHNICIAN BASIC, Pharmacy: [facility] Start Date: 06/30/16 Stop Date: 07/07/16 Status: CompletedoxyCODONE-acetaminophen 5 mg-325 mg oral tablet 1 tab(s), Oral, TID, PRN pain severe 8-10, X 7 days, # 21 tab(s), 0 Refill(s), Start Date: 06/23/16 15:23:20 CDT, Pharmacy: [facility] Start Date: 06/23/16 Stop Date: 06/30/16 Status: CompletedoxyCODONE-acetaminophen 5 mg-325 mg oral tablet 2 tab(s), Oral, TID, PRN for pain, Only for severe pain 8-10 not to exceed 4000 mg acetaminophen per day, X 14 days, # 84 tab(s), 0 Refill(s), Start Date: 07/18/16 11:01:00 EMERGENCY MEDICAL TECHNICIAN BASIC, other reason (Rx) Special Instructions: Only for [...] 0 Refill(s), Start Date: 12:59:00 CDT, Pharmacy: [facility] Start Date: 04/11/16 Stop Date: 04/26/16 Status: CompletedoxyCODONE-acetaminophen 5 mg-325 mg oral tablet 1 tab(s), Oral, TID, PRN for pain, Only for severe pain 8-10, X 14 days, # 42 tab(s), 0 Refill(s), Start Date: 07/10/16 9:02:23 EMERGENCY MEDICAL TECHNICIAN BASIC, Pharmacy: [facility] Special Instructions: Only for severe pain 8-10 Start Date: 07/10/16 Stop Date: 07/18/16 Status: CompletedoxyCODONE-acetaminophen 5 mg-325 mg oral tablet 1 tab(s), Oral, q6hr interval, PRN pain severe 8-10, X 10 days, # 40 tab(s), 0 Refill(s), Start Date: 06/12/16 14:19:00 CDT, Pharmacy: [facility] Start Date: 06/12/16 Stop Date: 06/22/16 Status: CompletedoxyCODONE-acetaminophen 5 mg-325 mg oral tablet 1 tab(s), Oral, Daily, PRN for pain, Only for severe pain 8-10, X 7 days, # 7 tab(s), 0 Refill(s), Start Date: 07/07/16 8:39:00 EMERGENCY MEDICAL TECHNICIAN BASIC, Pharmacy: [facility] Special Instructions: Only for severe pain 8-10 Start Date: 07/07/16 Stop Date: 07/10/16 Status: CompletedoxyCODONE-acetaminophen 5 mg-325 mg oral tablet 2 tab(s), Oral, TID, PRN for pain, Only for severe pain 8-10 not to exceed 4000 mg acetaminophen per day, X 7 days, # 42 tab(s), 0 Refill(s), Start Date: 07/18/16 11:44:08 EMERGENCY MEDICAL TECHNICIAN BASIC, Pharmacy: [facility] Special Instructions: Only for severe pain 8-10 not to exceed 4000 mg acetaminophen per day Start Date: 07/18/16 Stop Date: 07/25/16 Status: CompletedoxyCODONE-acetaminophen 5mg-325mg oral tablet 2 tab(s), Oral, TID, PRN for pain, Only for severe pain 8-10 not to exceed 4000 mg acetaminophen per day, X 7 days, # 42 tab(s), 0 Refill(s), Start Date: 07/25/16 12:04:23 EMERGENCY MEDICAL TECHNICIAN BASIC, Pharmacy: [facility] Special Instructions: Only for severe pain 8-10 not to exceed 4000 mg acetaminophen per day Start Date: 07/25/16 Stop Date: 08/01/16 Status: Completedpantoprazole 40 mg oral delayed release tablet 1 tab(s), Oral, Daily, X 14 days, # 14 tab(s), 0 Refill(s), Start Date: 4:33:00 EMERGENCY MEDICAL TECHNICIAN BASIC Start Date: 06/26/15 Stop Date: 07/10/15 Status: Completedpantoprazole 40 mg oral delayed release tablet 1 tab(s), Oral, Daily, # 30 tab(s), 0 Refill(s), Start Date: 06/06/16 12:51:00 CDT Start Date: 06/06/16 Stop Date: 06/12/16 Status: DiscontinuedPercocet 5/325 oral tablet 1 tab(s), Oral, TID, PRN for pain, X 7 days, # 21 tab(s), 0 Refill(s), Start Date: 09/16/16 8:47:54 EMERGENCY MEDICAL TECHNICIAN BASIC, Pharmacy: [facility] Start Date: 09/16/16 Stop Date: 09/22/16 Status: CompletedPercocet 5/325 oral tablet 1 tab(s), Oral, q6hr, PRN for pain, # 30 tab(s), 0 Refill(s), Start Date: 9:49:26 CDT, Pharmacy: [facility] Start Date: 04/28/16 Stop Date: 05/28/16 Status: CompletedPercocet 5/325 oral tablet 1 tab(s), Oral, q6hr, PRN for pain, # 10 tab(s), 0 Refill(s), Start Date: 8:35:41 CDT, Pharmacy: [facility] [id number] Start Date: 04/18/16 Stop Date: 04/28/16 Status: DiscontinuedPercocet 5/325 oral tablet 1 tab(s), Oral, q4hr, PRN for pain, X 5 days, # 20 tab(s), 0 Refill(s), Start Date: 06/01/16 0:48:00 CDT Start Date: 06/01/16 Stop Date: 06/06/16 Status: CompletedPercocet 5/325 oral tablet 2 tab(s), Oral, q6hr, PRN for pain, X 3 days, # 15 tab(s), 0 Refill(s), Start Date: 06/26/15 4:33:00 EMERGENCY MEDICAL TECHNICIAN BASIC Start Date: 06/26/15 Stop Date: 06/29/15 Status: CompletedPercocet 5/325 oral tablet 1 tab(s), Oral, q6hr interval, PRN for pain, X 7 days, # 28 tab(s), 0 Refill(s) , Start Date: 09/09/16 11:45:52 EMERGENCY MEDICAL TECHNICIAN BASIC, Pharmacy: [facility] [id number] Start Date: 09/09/16 Stop Date: 09/16/16 Status: CompletedPercocet 5/325 oral tablet 1 or 2 tabs, Oral, q4hr, PRN pain moderate 4-7, Do not work or drive with this medication, # 12 tab(s), 0 Refill(s), Start Date: 08/18/15 0:20:00 EMERGENCY MEDICAL TECHNICIAN BASIC Special Instructions: Do not work or drive with this medication Start Date: 08/18/15 Stop Date: 08/21/15 Status: CompletedPercocet 5/325 oral tablet 1 or 2 tabs, Oral, q4hr, PRN pain moderate 4-7, Do not work or drive with this medication, # 12 tab(s), 0 Refill(s), Start Date: 09/27/16 16:08:00 EMERGENCY MEDICAL TECHNICIAN BASIC Special Instructions: Do not work or drive with this medication Start Date: 09/27/16 Stop Date: 09/29/16 Status: OrderedPercocet 5/325 oral tablet 1 tab(s), Oral, q6hr, PRN for pain, # 10 tab(s), 0 Refill(s), Start Date: 22:53:00 CDT, Pharmacy: [facility] Start Date: 04/17/16 Stop Date: 04/18/16 Status: DiscontinuedPercocet 5/325 oral tablet 1 tab(s), Oral, TID, PRN for pain, # 30 tab(s), 0 Refill(s), Start Date: 15:49:00 EMERGENCY MEDICAL TECHNICIAN BASIC Start Date: 09/01/16 Stop Date: 09/09/16 Status: CompletedPercocet 5/325 oral tablet 1 tab(s), Oral, BID, PRN for pain, # 14 tab(s), 0 Refill(s), Start Date: 9:06:36 EMERGENCY MEDICAL TECHNICIAN BASIC, Pharmacy: [facility] Start Date: 09/22/16 Stop Date: 09/29/16 Status: OrderedPhenergan 25 mg oral tablet 1 tab(s), Oral, q4hr, PRN for nausea/vomiting, X 5 days, # 30 tab(s), 0 Refill(s ), Start Date: 08/24/16 12:32:00 EMERGENCY MEDICAL TECHNICIAN BASIC Start Date: 08/24/16 Stop Date: 08/29/16 Status: CompletedpredniSONE 20 mg oral tablet See Instructions, 2 tab(s) Oral Daily for 5 days then 1 tab daily for 5 days then 0.5 tab daily for 5 days, # 20 tab(s), 0 Refill(s), Start Date: 12/20/15 14 :03:00 CDT, Pharmacy: [facility] Special Instructions: 2 tab(s) Oral Daily for 5 days then 1 tab daily for 5 days then 0.5 tab daily for 5 days Start Date: 12/20/15 Stop Date: 01/28/16 Status: CompletedProAir HFA 90 mcg/inh inhalation aerosol 2 puff(s), Inhale, QID, PRN for wheezing, # 1 boxes, 2 Refill(s), Start Date: 10:48:39 CDT, Pharmacy: [facility] Start Date: 01/16/16 Status: OrderedProAir HFA 90 mcg/inh inhalation aerosol 2 puff(s), Inhale, QID, PRN for wheezing, # 1 boxes, 2 Refill(s), Start Date: 13:59:00 EMERGENCY MEDICAL TECHNICIAN BASIC, Pharmacy: [facility] Start Date: 10/17/15 Stop Date: 01/16/16 Status: Discontinuedpromethazine 25 mg oral tablet 1 tab(s), Oral, q6hr interval, PRN as needed for nausea/vomiting, X 3 days, # 12 tab(s), 0 Refill(s), Start Date: 06/06/16 12:52:00 CDT Start Date: 06/06/16 Stop Date: 06/09/16 Status: Completedpromethazine 25 mg oral tablet 1 tab(s), Oral, q6hr, Dispense, # 3 tab(s), 0 Refill(s), Start Date: 08/02/16 21 :58:00 EMERGENCY MEDICAL TECHNICIAN BASIC Special Instructions: Dispense Start Date: 08/02/16 Stop Date: 08/19/16 Status: Completedpromethazine 25 mg oral tablet 1 tab(s), Oral, q6hr, # 12 tab(s), 0 Refill(s), Start Date: 08/02/16 21:56:00 EMERGENCY MEDICAL TECHNICIAN BASIC Start Date: 08/02/16 Stop Date: 08/19/16 Status: Completedpromethazine 25 mg oral tablet 1 tab(s), Oral, q4hr, PRN for nausea/vomiting, # 60 tab(s), 0 Refill(s), Start Date: 08/31/15 14:03:00 EMERGENCY MEDICAL TECHNICIAN BASIC, Pharmacy: [facility] Start Date: 08/31/15 Stop Date: 11/14/15 Status: DiscontinuedSingulair 10 mg oral tablet 1 tab(s), Oral, qPM, # 30 tab(s), 5 Refill(s), Start Date: 12/20/15 14:03:00 CDT , Pharmacy: [facility] Start Date: 12/20/15 Stop Date: 04/26/16 Status: CompletedSymbicort 80 mcg-4.5 mcg/inh inhalation aerosol 2 puff(s), Inhale, BID, # 7 gm, 11 Refill(s), Start Date: 11/14/15 13:45:00 CDT , Pharmacy: [facility] Start Date: 11/14/15 Stop Date: 04/26/16 Status: CompletedtraMADol 50 mg oral tablet 1 tab(s), Oral, q4hr interval, PRN as needed for pain, X 3 days, # 18 tab(s), 0 Refill(s), Start Date: 08/24/16 12:32:00 EMERGENCY MEDICAL TECHNICIAN BASIC Start Date: 08/24/16 Stop Date: 08/27/16 Status: CompletedtraMADol 50 mg oral tablet 1 tab(s), Oral, q4hr, PRN for pain, # 10 tab(s), 0 Refill(s), Start Date: 21:27:00 EMERGENCY MEDICAL TECHNICIAN BASIC Start Date: 08/09/16 Stop Date: 08/19/16 Status: CompletedtraMADol 50 mg oral tablet 1 tab(s), Oral, q4hr, PRN as needed for pain, Dispense, # 4 tab(s), 0 Refill(s) , Start Date: 08/02/16 21:58:00 EMERGENCY MEDICAL TECHNICIAN BASIC Special Instructions: Dispense Start Date: 08/02/16 Stop Date: 08/19/16 Status: CompletedtraMADol 50 mg oral tablet 1 tab(s), Oral, q4hr interval, PRN as needed for pain, # 18 tab(s), 0 Refill(s) , Start Date: 08/02/16 21:56:00 EMERGENCY MEDICAL TECHNICIAN BASIC Start Date: 08/02/16 Stop Date: 08/19/16 Status: CompletedUltram 50 mg oral tablet 1 or2 tab(s), Oral, q6hr interval, PRN for pain, Not work or drive with this medication, # 20 tab(s), 0 Refill(s), Start Date: 08/19/16 18:37:00 EMERGENCY MEDICAL TECHNICIAN BASIC Special Instructions: Not work or drive with this medication Start Date: 08/19/16 Stop Date: 09/01/16 Status: CompletedZofran 4 mg oral tablet 1 tab(s), Oral, TID, PRN nausea/vomiting, # 10 tab(s), 0 Refill(s), Start Date: 08/09/16 21:28:00 EMERGENCY MEDICAL TECHNICIAN BASIC Start Date: 08/09/16 Stop Date: 08/19/16 Status: [...] 0 Refill(s), Start Date : 06/26/15 4:33:00 EMERGENCY MEDICAL TECHNICIAN BASIC Start Date: 06/26/15 Stop Date: 06/29/15 Status: CompletedZofran ODT 4 mg oral tablet, disintegrating 1 tab(s), Oral, TID, # 9 tab(s), 0 Refill(s), Start Date: 09/09/16 11:45:51 EMERGENCY MEDICAL TECHNICIAN BASIC , Pharmacy: [facility] Start Date: 09/09/16 Stop Date: 09/12/16 Status: CompletedZofran ODT 4 mg oral tablet, disintegrating 1 tab(s), Oral, As Indicated, PRN nausea/vomiting, # 10 tab(s), 0 Refill(s), Start Date: 08/18/15 0:19:00 EMERGENCY MEDICAL TECHNICIAN BASIC Start Date: 08/18/15 Stop Date: 08/31/15 Status: DiscontinuedZofran ODT 4 mg oral tablet, disintegrating 1 tab(s), Oral, q8hr interval, PRN nausea/vomiting, # 12 tab(s), 0 Refill(s), Start Date: 09/27/16 16:08:00 EMERGENCY MEDICAL TECHNICIAN BASIC Start Date: 09/27/16 Status: OrderedZofran ODT 4 mg oral tablet, disintegrating 1 tab(s), Oral, QID, X 3 days, # 30 tab(s), 0 Refill(s), Start Date: 08/28/16 18 :51:00 EMERGENCY MEDICAL TECHNICIAN BASIC Start Date: 08/28/16 Stop Date: 09/09/16 Status: CompletedZofran ODT 4 mg oral tablet, disintegrating 1 tab(s), Oral, q4hr, PRN nausea/vomiting, X 5 days, # 30 tab(s), 0 Refill(s), Start Date: 08/18/15 14:15:00 EMERGENCY MEDICAL TECHNICIAN BASIC Start Date: 08/18/15 Stop Date: 08/23/15 Status: CompletedZofran ODT 4 mg oral tablet, disintegrating 1 tab(s), Oral, TID, PRN nausea/vomiting, # 10 tab(s), 0 Refill(s), Start Date: 09/12/16 12:24:00 EMERGENCY MEDICAL TECHNICIAN BASIC Start Date: 09/12/16 Status: OrderedZyrTEC 10 mg oral tablet 1 tab(s), Oral, Daily, # 30 tab(s), 11 Refill(s), Start Date: 11/14/15 13:45:00 CDT, Pharmacy: [facility] Start Date: 11/14/15 Stop Date: 04/26/16 Status: Completed Results Patient Viewable Results Most recent to oldest [Reference Range]: 1 WBC [4.8-10.8 thou/mm3] 5.2 thou/mm3 (09/27/16 3:37 PM) RBC [4.20-5.40 Mil/mm3] 4.31 Mil/mm3 (09/27/16 3:37 PM) Hgb [12.0-16.0 g/dL] 13.1 g/dL (09/27/16 3:37 PM) Hct [37.0-47.0 %] 39.5 % (09/27/16 3:37 PM) MCV [80.0-94.0 fL] 91.6 fL (09/27/16 3:37 PM) MCH [25.0-38.0 pg/cell] 30.4 pg/cell (09/27/16 3:37 PM) MCHC [31.0-37.0 g/dL] 33.2 g/dL (09/27/16 3:37 PM) RDW [1.0-48.0 fL] 41.6 fL (09/27/16 3:37 PM) Platelet [130-400 thou/mm3] 261 thou/mm3 (09/27/16 3:37 PM) Neutrophils % Auto [50.0-75.0 %] 50.2 % (09/27/16 3:37 PM) Immature Granulocyte Auto [0.1-2.0 %] 0.0 % *LOW* (09/27/16 3:37 PM) Lymphocytes % Auto [15.0-41.0 %] 38.6 % (09/27/16 3:37 PM) Monocytes % Auto [2.0-10.0 %] 7.3 % (09/27/16 3:37 PM) Eosinophils % Auto [0.0-6.0 %] 3.3 % (09/27/16 3:37 PM) Basophil % Auto [0.0-1.0 %] 0.6 % (09/27/16 3:37 PM) Neutrophils Absolute [1.5-5.9 thou/mm3] 2.6 thou/mm3 (09/27/16 3:37 PM) Immature Gran Absolute [0.01-0.03 0.00 thou/mm3 thou/mm3] *LOW* (09/27/16 3:37 PM) Lymphocytes Absolute [1.5-4.0 thou/mm3] 2.0 thou/mm3 (09/27/16 3:37 PM) Monocytes Absolute [0.0-0.9 thou/mm3] 0.4 thou/mm3 (09/27/16 3:37 PM) Eosinophil Absolute [0.0-0.7 thou/mm3] 0.2 thou/mm3 (09/27/16 3:37 PM) Basophil Absolute [0.0-0.2 thou/mm3] 0.0 thou/mm3 (09/27/16 3:37 PM) Sodium Lvl [135-144 mEq/L] 142 mEq/L (09/27/16 3:37 PM) Potassium Lvl [3.3-4.8 mEq/L] 3.8 mEq/L (09/27/16 3:37 PM) Chloride Lvl [98-107 mEq/L] 103 mEq/L (09/27/16 3:37 PM) Bicarbonate Lvl [22-30 mmol/L] 30 mmol/L (09/27/16 3:37 PM) Anion Gap [10.0-20.0] 12.8 (09/27/16 3:37 PM) Glucose Lvl [70-108 mg/dL] 85 mg/dL (09/27/16 3:37 PM) BUN [7-21 mg/dL] 12 mg/dL (09/27/16 3:37 PM) Creatinine Lvl [0.50-1.20 mg/dL] 0.65 mg/dL (09/27/16 3:37 PM) BUN/Creat Ratio 18.5 *NA* (09/27/16 3:37 PM) eGFR AA [>=60] >60 (09/27/16 3:37 PM) eGFR SIVA [>=60] >60 (09/27/16 3:37 PM) Calcium Lvl [8.6-10.2 mg/dL] 9.4 mg/dL (09/27/16 3:37 PM) Total Protein [6.4-8.3 g/dL] 6.9 g/dL (09/27/16 3:37 PM) Albumin Lvl [3.5-5.2 g/dL] 4.3 g/dL (09/27/16 3:37 PM) Globulin 2.6 *NA* (09/27/16 3:37 PM) A/G Ratio [0.9-1.8] 1.7 (09/27/16 3:37 PM) Bilirubin Total [0.1-1.0 mg/dL] 0.4 mg/dL (09/27/16 3:37 PM) Alkaline Phosphatase [39-129 unit/L] 81 unit/L (09/27/16 3:37 PM) AST [0-39 unit/L] 18 unit/L (09/27/16 3:37 PM) ALT [0-40 unit/L] 11 unit/L (09/27/16 3:37 PM) Lipase Lvl [13-60 unit/L] 42 unit/L (09/27/16 3:37 PM) Estimated Creatinine Clearance 167.43 mL/min (09/27/16 2:46 PM) HGC, SERUM QUAL [Negative] Negative (09/27/16 3:37 PM) Serum HCG, Interp. If test result does not correlate with clinical presentation, then either immediate serum quantitative HCG test or repeat qualitative test in forty-eight hours recommended. The test is intended as an aid in diagnosing early . *Unknown* (09/27/16 3:37 PM) Immunizations Vaccine Date Refusal Reason tetanus/diphth/pertuss (Tdap) adult/adol 07/28/16 tetanus/diphth/pertuss (Tdap) adult/adol 04/27/16 Patient Refuses Procedures Procedure Date Related Diagnosis Body Site Esophagogastroduodenoscopy1 09/10/16 Tubal Ligation Post Partum2 04/27/16 Dilation and curettage of uterus 2013 Dilation and curettage of uterus 2000 1auto-populated from documented surgical [id number] from documented surgical case Social History No data available for this section Assessment and Plan No data available for this section
== END 2016-11-03 00:01 | disposition home or self-care (01) ==
LOC: ER 23:14
DX: K08.89 Other specified disorders of teeth and supporting structures (principal); Z72.0 Tobacco use; F41.9 Anxiety disorder, unspecified